=== PATIENT | female | born 1955 | race Caucasian/White ===

== ENCOUNTER → 2016-10-20 | Outpatient (CLI) | payer BC ==
[~2016-10-20] MED LIST: ASPI81TA82 PO; CALC-338 PO; CLOP1TAB54 PO; LPT/40 PO; METO25TA56 PO; MULTTAB58 PO; NTRGSL/4 UT
--- NOTE | 2016-10-20 15:41 | MAMMOGRAPHY REPORT ---
BILATERAL DIGITAL SCREENING MAMMOGRAM WITH CAD: 10/20/2016 CLINICAL HISTORY: Routine screening. Patient has no complaints. TECHNIQUE: Current study was also evaluated with a Computer Aided Detection (CAD) system. Bilatera l CC and MLO views were obtained. COMPARISON: Comparison is made to exams dated: 10/20/2015 mammogram, 10/16/2013 mammogram, 10/17/2014 mammogram, 10/15/2012 mammogram, 10/13/2011 mammogram, and 10/11/2010 mammogram - [facility]. BREAST COMPOSITION: The tissue of both breasts is heterogeneously dense, which may obscure small ma sses. FINDINGS: No suspicious masses, calcifications, or areas of architectural distortion are noted in e ither breast. There has been no significant interval change compared to prior exams. A linear scar marker denotes a scar in the right upper outer breast. A few scattered bilateral benign-appearing c alcifications are not significantly changed. IMPRESSION: ACR BI-RADS CATEGORY 2: BENIGN There is no mammographic evidence of malignancy. A 1 year screening mammogram is recommended. The p atient will receive written notification of the results. Approximately 10% of breast cancers are not detected with mammography. A negative mammographic repor t should not delay biopsy if a clinically suggestive mass is present. Gretel Patricio M.D. ah/:10/20/2016 14:57:09 Patient Insurance Clerk: Yohannes PIERRE(R)(M), [facility] letter sent: Normal 1/2 BI-RADS Code: ACR BI-RADS Category 2: Benign
== END | disposition home or self-care (01) ==
LOC: C.MAMM 13:34
PROVIDERS: ATTEND Family Medicine
DX: Z12.31 Encounter for screening mammogram for malignant neoplasm of breast (principal)

== ENCOUNTER → 2017-10-23 | Outpatient (CLI) | payer BC ==
--- NOTE | 2017-10-24 07:47 | MAMMOGRAPHY REPORT ---
BILATERAL DIGITAL SCREENING MAMMOGRAM TOMOSYNTHESIS WITH CAD: 10/23/2017 CLINICAL HISTORY: Routine screening. Patient has no complaints. TECHNIQUE: Breast tomosynthesis in addition to standard 2D mammography was performed. Current study was also evaluated with a Computer Aided Detection (CAD) system. COMPARISON: Comparison is made to exams dated: 10/20/2016 mammogram, 10/20/2015 mammogram, 10/17/2014 m ammogram, 10/16/2013 mammogram, 10/15/2012 mammogram, and 10/13/2011 mammogram - [facility]. BREAST COMPOSITION: The tissue of both breasts is heterogeneously dense, which may obscure small mas ses. FINDINGS: A linear scar marker overlies the upper outer quadrant of the right breast. There is stabl e asymmetry in the medial/retroareolar right breast. No suspicious mass, architectural distortion or cluster of microcalcifications is seen. IMPRESSION: ACR BI-RADS CATEGORY 1: NEGATIVE There is no mammographic evidence of malignancy. A 1 year screening mammogram is recommended. The pa tient will receive written notification of the results. Approximately 10% of breast cancers are not detected with mammography. A negative mammographic report should not delay biopsy if a clinically suggestive mass is present. Kori Post M.D. ay/:10/23/2017 17:05:12 Fitness And Wellness Coordinator: Rosalva Berg, [facility] letter sent: Normal 1/2 BI-RADS Code: ACR BI-RADS Category 1: Negative
== END | disposition home or self-care (01) ==
LOC: C.MAMM 13:29
PROVIDERS: ATTEND Family Medicine
DX: Z12.31 Encounter for screening mammogram for malignant neoplasm of breast (principal)

== ENCOUNTER 2021-12-06 19:05 | Inpatient (IN) ==
[~2021-12-06 19:05] MED LIST changes: -ASPI81TA82 PO; -CALC-338 PO; -CLOP1TAB54 PO; +ETOMIDATE 2 MG/ML 20 ML VIAL IV ONE; -LPT/40 PO; -METO25TA56 PO; -MULTTAB58 PO; -NTRGSL/4 UT; +SUCCINYLCHOLINE CHLORIDE 20 MG/ML 10 ML VIAL IV ONE
[2021-12-06] MEDS ORDERED: LORazepam 2 MG/1 ML VIAL IV STA (19:07)
[2021-12-06] MEDS ORDERED: ONDANSETRON INJ 2 MG/ML 2 ML VIAL IV STA (19:08)
[2021-12-06] MEDS ORDERED: LORazepam 2 MG/1 ML VIAL ONE (19:08)
[2021-12-06] MEDS ORDERED: ONDANSETRON INJ 2 MG/ML 2 ML VIAL ONE (19:08)
[2021-12-06] MEDS ORDERED: RAPID SEQUENCE INDUCTION BAG ONE (19:20)
[2021-12-06 19:29] LABS: iSTAT Creatinine 0.8 mg/dl (0.6-1.3); iSTAT Hemoglobin 16.7 g/dl (12.0-16.0); iSTAT Ionized Calcium 1.25 mmol/l (1.12-1.32); iSTAT Potassium 4.3 mmol/L (3.3-5.0)
[2021-12-06] MEDS ORDERED: PROPOFOL IV EMULSION 10 MG/ML 100 ML VIAL IV ONE (19:33)
--- NOTE | 2021-12-06 19:37 | XRay Report ---
XR chest 1V portable CLINICAL HISTORY: Atypical chest pain TECHNIQUE: Single frontal radiograph of the chest was obtained. Comparison: Comparison is made to chest radiograph 08/26/2013 FINDINGS: No lines and tubes are seen. Cardiomegaly is noted. Prominence and cephalization of the vasculature i s seen. No evidence of pleural effusion or pneumothorax. IMPRESSION: Mild pulmonary edema. Cardiomegaly. ACT 112: Negative or not required by law. Electronically signed by: Champ Nuñez M.D. 12/06/2021 7:36 PM
[2021-12-06 19:41] LABS: Partial Thromboplastin Time 28.4 Seconds (21.0-31.0); Prothrombin Time 10.5 Seconds (9.0-12.0)
--- NOTE | 2021-12-06 19:49 | XRay Report ---
XR chest 1V portable CLINICAL HISTORY: ett placement TECHNIQUE: Single frontal radiograph of the chest was obtained. Comparison: Comparison is made to chest radiograph 12/06/2021 at 1917 hours. FINDINGS: Endotracheal tube is in satisfactory position. Cardiomegaly is noted. Prominence and cephalization of the vasculature is seen. No evidence of pleural effusion or pneumothorax. IMPRESSION: Satisfactory position of endotracheal tube. Redemonstration of cardiomegaly and mild pulmonary edema. ACT 112: Negative or not required by law. Electronically signed by: Champ Nuñez M.D. 12/06/2021 7:48 PM
[2021-12-06 19:53] LABS: Anion Gap 13 (3-11); BUN Creatinine Ratio 19.8 (10-20); Blood Urea Nitrogen 17 mg/dl (6-23); Calcium 10.2 mg/dl (8.5-10.1); Carbon Dioxide 21 mmol/L (21-32); Chloride 105 mmol/L (98-107); Est GFR (African American) 81.6 ml/min; Est GFR (Non-African American) 70.4 ml/min; Glucose 143 mg/dl (70-99(Fasting)); Lipase 19 U/L (11-82); Potassium 4.6 mmol/L (3.5-5.1); Sodium 139 mmol/L (136-145)
[2021-12-06 19:57] LABS: Hematocrit (blood only) 47.8 % (37-47); Mean Corpuscular Hgb Conc 31.4 g/dL (32-36); Mean Corpuscular Volume 89.2 fL (80-100); Mean Platelet Volume 11.6 fL (7.4-10.4); Platelet Count 391 K/uL (130-400); RDW Coefficient of Variation 16.2 % (11.5-14.5); RDW Standard Deviation 52.7 fL (36.4-46.3); Red Blood Count 5.36 M/uL (4.2-5.4); White Blood Count 15.73 K/uL (4.8-10.8)
[2021-12-06 20:13] LABS: Base Excess ABG -13.6 mEq/L (-9-1.8); HCO3 ABG 15 mmol/L (19-24); Oxygen Saturation ABG 97.4 % (90-95); PCO2 ABG 47 mmHg (35-46); PO2 ABG 114 mmHg (80-95)
[2021-12-06 20:14] LABS: Allen Test Pos (Pos); pH ABG 7.13 (7.35-7.45)
[2021-12-06] MEDS ORDERED: OPTIRAY 320 125ml IV ONE (20:19)
[2021-12-06 20:22] LABS: ALC (manual) 4.78 K/uL (1.2-3.4); ANC (manual) 8.84 K/uL (1.4-6.5); Basophils # (manual) 0.14 K/uL (0-0.2); Basophils % (manual) 0.9 %; Eosinophils # (manual) 1.26 K/uL (0-0.5); Lymphocytes # (manual) 4.78 K/uL (1.2-3.4); Lymphocytes % (manual) 30.4 %; Monocytes # (manual) 0.71 K/uL (0.11-0.59); Monocytes % (manual) 4.5 %; Neutrophils # (manual) 8.84 K/uL (1.4-6.5); Neutrophils % (manual) 56.2 %; RBC Morphology Unremarkable
--- NOTE | 2021-12-06 20:29 | CT Scan Report ---
CT head/brain wo con CLINICAL HISTORY: ams Technique: Contiguous axial CT images of the head were acquired from the base of the skull to the michael doug without intravenous contrast administration. Images were viewed in brain, subdural and [facility]. Automated dose lowering techniques and/or adjustment according to patient size were utilized for this exam. Comparison: None available at the time of this dictation. Findings: The ventricles, basal cisterns, and cerebral sulci are normal. There is no acute intracranial hemorrh age or evidence of acute territorial infarction. Neither mass effect, shift of the midline structures , nor abnormal extra-axial fluid collections are shown. Imaged portions of the paranasal sinuses and mastoid air cells are clear. The orbits appear normal. There are no acute fractures of the calvaria or scalp swelling. Impression: No acute intracranial hemorrhage, no evidence of acute territorial infarction or other acute intracra nial disease process. ACT 112: Negative or not required by law. Electronically signed by: Champ Nuñez M.D. 12/06/2021 8:27 PM
--- NOTE | 2021-12-06 20:39 | CT Scan Report ---
CT angio chest PE protocol CLINICAL HISTORY: ro pe TECHNIQUE: Multidetector row helical CT of the chest was performed with angiographic protocol. Hopkins l and sagittal reformations were obtained. Coronal and sagittal MIPS were obtained from the axial arturo a set and were submitted for review. Automated dose lowering techniques and/or adjustment according to patient size were utilized for this exam. CT DOSE: 361.11 mGy.cm Comparison: None available at the time of this dictation. FINDINGS: Lungs and pleura: Moderate right and small left pleural effusions are seen. Consolidations and ground glass opacities are seen in the bilateral lower lobes. Smooth interlobular septal thickening is seen. Heart and pericardium: Heart size is normal. No pericardial effusion. Vessels: No evidence of pulmonary embolism. Pulmonary trunk measures 33 mm in diameter. Mediastinum and lewis: Subcentimeter lymph nodes are seen. Chest wall and lower neck: Unremarkable. Abdomen: Unremarkable. Bones: Degenerative changes in the thoracic spine. IMPRESSION: 1. No evidence of pulmonary embolus. 2. Moderate right and small left pleural effusions. Bilateral lower lung consolidations are nonspeci fic and may reflect infectious/inflammatory process or atelectasis. 3. Moderate pulmonary edema. 4. Pulmonary hypertension. ACT 112: Negative or not required by law. Electronically signed by: Champ Nuñez M.D. 12/06/2021 8:37 PM
[2021-12-06 20:44] LABS: Appearance Urine Clear (Clear); Bilirubin Urine Negative (Negative); Blood Urine Negative (Negative); Color Urine Yellow; Glucose Urine UA Negative (Negative); Ketones Urine Negative (Negative); Leukocyte Esterase Urine Negative (Negative); Nitrite Urine Negative (Negative); Protein Urine Negative (Negative); Specific Gravity Urine 1.006 (1.000-1.030); Urobilinogen Urine Negative (Negative); pH Urine 5.5 (4.5-7.5)
[2021-12-06] MEDS ORDERED: FUROSEMIDE 40 MG/4 ML VIAL IV ONE ×2 (20:47→20:49)
[2021-12-06 21:03] LABS: Base Excess ABG -12.3 mEq/L (-9-1.8); HCO3 ABG 16 mmol/L (19-24); PCO2 ABG 43 mmHg (35-46); PO2 ABG 161 mmHg (80-95)
[2021-12-06 21:04] LABS: Allen Test Pos (Pos); pH ABG 7.18 (7.35-7.45)
[2021-12-06] MEDS ORDERED: fentaNYL citrate 100 MCG/2 ML VIAL ONE (21:04)
[2021-12-06] MEDS ORDERED: ICU PROTOCOL FOR HYPERGLYCEMIA PRN (22:48)
[2021-12-06] MEDS ORDERED: METOPROLOL TARTRATE 1 MG/ML VIAL IV PRN (22:48)
[2021-12-06] MEDS ORDERED: STAT IV Infusion **Titration per Protocol STA (22:53)
[2021-12-06] MEDS ORDERED: PROPOFOL BOLUS FROM BAG IV PRN (22:53)
[2021-12-06] MEDS ORDERED: propofoL 1,000 MG/100 ML VIAL IV SCH (23:00)
--- NOTE | 2021-12-06 23:06 | Critical Care Consultation ---
Date of Consultation December 06, 2021 Assessment & Plan (1) Admitted to intensive care unit: Reason Critically Ill: 66-year-old female presenting in acute respiratory failure with hypoxia secondary to flash pulmonary edema requiring emergent endotracheal intubation. NEURO - * CAM ICU: Unable to assess secondary to sedation * Sedation: Propofol * Pain: As needed fentanyl CARDIAC/VASCULAR - * Acute heart failure: * Likely related to patient's recent valvular insufficiencies. * Certainly, acute coronary syndrome may present similarly, however patient's EKG and initial cardiac enzymes are not suggestive of significant cardiovascular event. Will perform serial enzymes and EKGs. Will hold on Heparin gtt for now. * Agree with Lasix BID dosing for now. * EKG: NSR @ [address] depression laterally. No ST elevation. QTc 472 bpm. * Repeat EKG upon arrival in the ICU shows NSR @ [address] depressions seen at this time. QTc 466 ms. * Monitor on telemetry. RESPIRATORY - * Acute hypoxic respiratory failure: * Secondary to flash pulmonary edema. * CTA w/o other acute findings. * Diuresing well. * Titrating down vent settings currently. * Hopeful for early extubation. GI/NUTRITION - * NPO * OGT in place. RENAL/LYTES - * No significant electrolyte derangements. * Monitor electrolytes closely w/ new Lasix dosing. - * Dubois in place - Strict I&Os. ENDO - * No h/o DM or Thyroid Dz * BSGs per unit protocol. ISS --> gtt per unit policy. HEME - * Leukocytosis. * Likely stress reaction. * Monitor fever curve. ID - * Likely not infectious causes at this point. * Trend fever curve. LINES/IV ACCESS - * PIVs x3 * ETT * OGT * Dubois DVT PROPHYLAXIS - * Heparin * SCDs I have personally spent 35 minutes of critical care time in the direct management of this patient. This is a life/limb threatening event. This includes time spent evaluating patient, direct bedside care, chart review, placing orders, interpretation of diagnostic studies, discussion with consultants, patient, and family members, as well as other required patient management activities. This time is exclusive of all separately billable procedures, and teaching time and separate from and in addition to any other critical care service time. Thank you for allowing us to participate in the care of this patient. Please refer to my attending physician's documentation for any further recommendations. (2) Acute respiratory failure with hypoxia: (3) Flash pulmonary edema: (4) Unstable angina: (5) Chronic osteomyelitis of jaw: History of Present Illness Attending Physician: Chiki Hernadez MD History of Present Illness Patient is a 66-year-old female with a significant past medical history of coronary artery disease status post PTCI with MICHELA x1, hypertension, hyperlipidemia, and recent diagnosis of aortic insufficiency via HARVINDER performed on 12/01. Patient had been performing her activities of daily living well and had recently just completed a yoga class this evening when she apparently drove immediately to the emergency department in respiratory distress. She was profoundly hypoxic in the 70s. She did not respond to noninvasive positive pressure ventilation techniques. She required endotracheal intubation in the setting of flash pulmonary edema. Upon my evaluation in the emergency department, the patient is intubated and sedated. She is unable to contribute to HPI. Allergies Allergy/AdvReac Type Severity Reaction Status Date / Time eptifibatide Allergy Intermediate ITCHY RASH Verified 12/06/21 19:20 [From Integrilin] codeine AdvReac Intermediate NAUSEA/VOMI Verified 12/06/21 19:20 TING Home Medications Medication Instructions Recorded Confirmed Type amlodipine 10 mg tablet 10 mg PO DAILY 06/04/19 12/06/21 History aspirin 81 mg tablet,delayed 81 mg PO QAM 06/04/19 12/06/21 History release metoprolol tartrate 50 mg tablet 50 mg PO BID 06/04/19 12/06/21 History (Lopressor) fexofenadine 180 mg tablet 180 mg PO DAILY 11/30/21 12/06/21 History fluticasone propionate 50 2 spray INTRANASAL DAILY 11/30/21 12/06/21 History mcg/actuation nasal spray,suspension (Flonase Allergy Relief) losartan 25 mg tablet 25 mg PO QAM 11/30/21 12/06/21 History calcium citrate 250 mg 1 tab PO BID 12/06/21 12/06/21 History calcium-vitamin D3 5 mcg (200 unit) tablet multivit-iron 18 mg-folic acid 400 1 tab PO DAILY 12/06/21 12/06/21 History mcg-calcium 500 mg-minerals tablet (Women's One Daily) rosuvastatin 40 mg tablet 40 mg PO DAILY 12/06/21 12/06/21 History sodium chloride 0.65 % nasal spray 1 spray INTRANASAL DIRECTED PRN 12/06/21 12/06/21 History aerosol (Saline Nasal) Patient History Medical History Aortic regurgitation Severe per 10/25/21 echo CAD (coronary artery disease) MICHELA to mid RCA (12/2012), "repeat coronary intervention" (05/2013) for in- stent restenosis per cardiology records Hyperlipidemia Hypertension Surgical History History of cardiac cath MICHELA to mid RCA (12/2012), "repeat coronary intervention" (05/2013) for in-sten t restenosis, (2013) > "50% distal narrowing of the RCA but no high-grade obstruction" per cardiology records Social History Smoking Status: Never smoker Second Hand Exposure: No; Hx Alcohol Use: Yes Alcohol type: wine Hx Substance Use: No Preferred Language: Hungarian Communication Ability: Effective Skates Operator Required: No Beliefs That Will Affect Care: None Current Living Situation: Spouse Other Information That Helps Us Care for You: No Feels Safe at Home: Yes Safety Concerns: Feels Safe At This Time Assistive Devices: Glasses Review of Systems Review of Systems: Unobtainable due to endotracheal tube and Unobtainable due to reduced consciousness Physical Exam Physical Exam: VITAL SIGNS - Vital signs and nursing notes were reviewed. GENERAL - 66-year-old female appearing her stated age who is in no acute distress. Intubated and sedated. HEAD - NC/AT. EYES - PERRL with EOMI bilaterally. Sclera anicteric. EARS - No deformities of external structures noted on gross examination bilaterally. NOSE - Midline and without cyanosis. No epistaxis or purulent drainage noted. MOUTH/OROPHARYNX - ETT in place. Without perioral cyanosis. Buccal mucosa pink and moist. NECK - Neck with FROM. Supple to palpation. LUNGS - Chest wall symmetric without accessory muscle use, intercostals r etractions, or central cyanosis. Normal vesicular breath sounds CTA B/L. No wheezes, rales, or rhonchi appreciated. CARDIAC - RRR with S1/S2. No murmur, rubs, or gallops appreciated. No reproducible tenderness to palpation appreciated over the anterior chest wall. ABDOMEN - Abdominal contour flat without pulsations or visible masses. BS normoactive all four quadrants. No tenderness, palpable masses, hepatosplenomegaly, or ascites noted. EXTREMITIES - No clubbing or peripheral cyanosis. No pretibial edema present. +3/5 radial and dorsalis pedis pulses palpated throughout. +5/5 strength noted i n UE/LE bilaterally. NEUROLOGIC - No focal neurological deficits noted. Unable to fully assess secondary to sedation. Results & Data Results & Data ([facility]) Vital Signs (Past 12 Hours) Vital Signs Temp Pulse Pulse Resp BP BP Pulse Ox 12/06/21 22:58 36.6 C 73 16 117/47 L 99 12/06/21 20:44 36.6 C 12/06/21 20:40 68 16 113/55 L 99 12/06/21 20:36 36.6 C 68 16 92/53 L 100 12/06/21 19:50 92 H 16 12/06/21 19:45 97 Coding Level of Care Code Critical Care 1st 30-74 mins Diagnoses Admitted to intensive care unit Z78.9 Acute respiratory failure with hypoxia J96.01 Flash pulmonary edema J81.0 Unstable angina I20.0 Chronic osteomyelitis of jaw M27.2 Time Spent (min) 35
[2021-12-06] MEDS: fentaNYL citrate 100 MCG/2 ML VIAL IV PRN (23:10)
[2021-12-06 23:38] LABS: iSTAT Allen Test Pass; iSTAT Arterial Blood Gas HCO3 26 meg/L (19-24); iSTAT Arterial Blood Gas pCO2 34 mmHg (35-46); iSTAT Arterial Blood Gas pH 7.49 (7.35-7.45); iSTAT Arterial Blood Gas pO2 299 mmHg (80-95); iSTAT Carbon Dioxide 27 mmol/L (24-31); iSTAT FiO2 80 %; iSTAT Site R Radial
--- NOTE | 2021-12-06 23:39 | History and Physical Report ---
DATE OF ADMISSION: 12/06/2021. CHIEF COMPLAINT: Shortness of breath, respiratory failure, status post intubation. HISTORY OF PRESENT ILLNESS: This is a 66-year-old female with a past medical history for hyperlipidemia, seasonal allergic rhinitis, CAD, status post stent, hypertension, dysfunction of eustachian tube, [id number] aortic insufficiency and moderate mitral regurgitation in recent echo, who presents with shortness of breath and found to have flash pulmonary edema, respiratory failure, status post intubation in the ER. Currently, the patient is sedated with propofol. is in the room. As per the , she was doing fine, she even did gardening on the weekend, she was active. No complaints except she has occasional cough thought to be from dysfunction of the left eustachian tube, but she has no orthopnea or PND, no leg swelling, no chest pain, no nausea, no vomiting, no fevers, no diarrhea, or no other complaints. She went for yoga class today and as per the , she finished the class and she did not come home for 45 minutes, which is unusual for her, and he texted her, she did respond, and he went there and there was no car and he found her here in the hospital.As per the ER, the patient was very short of breath when she came in. She could not tolerate high oxygen and she was coughing frothy sputum when they decided to intubate her and she is currently status post intubation. Could not get any history from the patient. ALLERGIES: CODEINE, INTEGRILIN. PAST MEDICAL HISTORY: As mentioned above. PAST SURGICAL HISTORY: Angioplasty, colonoscopy, left heart catheterization with stent placement, dental surgery, dilatation and curettage after miscarriage in 1990, breast cyst puncture and drainage. MEDICATIONS: The patient is on amlodipine 10 mg p.o. daily, aspirin 81 mg p.o. daily, calcium citrate plus vitamin D one tablet p.o. b.i.d., fexofenadine 180 mg p.o. daily, Flonase 2 sprays intranasal daily, losartan 25 mg p.o. a.m., metoprolol tartrate 50 mg p.o. b.i.d., Women's One Daily tablet daily, lovastatin 40 mg p.o., nasal spray 1 spray intranasal as directed p.r.n. FAMILY HISTORY: Significant for father had liver cancer, melanoma, in 1999, father also had CHF and TN; brother has mitral valve prolapse; mother has emphysema; maternal grandfather has TN; paternal grandmother has TN. SOCIAL HISTORY: . Quit smoking in 1984, smoked 1 pack a day for 10 years. Alcohol, a glass of red wine every day with dinner. No drug use. REVIEW OF SYSTEMS: As per HPI. Rest of the review of systems is negative. PHYSICAL EXAMINATION: GENERAL: The patient is thin and frail, currently status post intubation. VITAL SIGNS: Temperature 36.6, pulse 68, respiratory rate 16, blood pressure 113/55, oxygen 99% on mechanical ventilation. HEENT: Pupils pinpoint, sluggish to react. No obvious facial droop seen. NECK: No obvious JVD seen. CARDIOVASCULAR: S1 and S2 heard. Murmur in the mitral area heard. RESPIRATORY SYSTEM: Normal AP diameter. No accessory muscle use. Mild bibasilar crackles. No wheezing. ABDOMEN: Soft, bowel sounds present, nontender, no distention. CENTRAL NERVOUS SYSTEM: Currently status post intubation and sedated with propofol. EXTREMITIES: No edema, no erythema seen. LABORATORY DATA: WBC 15, hemoglobin 15, hematocrit 47.8, platelets 391. PT 10.5, INR 1, APTT 28.4. ABG, pH of 7.18, pCO2 of 43, pO2 of 161, bicarbonate 16, oxygen saturation 99%. Sodium 139, potassium 4.6, chloride 105, CO2 of 21, BUN 17, creatinine 0.8, serum glucose 143, calcium 10.2, ionized calcium 1.2. Troponin I high sensitivity 22.1, BNP 1073. Lipase 19. Urinalysis negative. SARS-CoV-2 rapid test negative. IMAGING DATA: CT of the head, no acute findings. Chest x-ray, satisfactory position of the ET tube, cardiomegaly, and mild pulmonary edema. Chest CTA, no evidence of pulmonary embolism, moderate right and left pleural effusions, bilateral lower lung consolidations are nonspecific and may reflect infectious, inflammatory process or atelectasis, moderate pulmonary edema, pulmonary hypertension. EKG: Normal sinus rhythm at a rate of 94, possible left atrial enlargement . No significant change was found. ASSESSMENT AND PLAN: This 66-year-old female who presents with shortness of breath and found to have acute respiratory failure secondary to flash pulmonary edema. 1. Acute respiratory failure secondary to flash pulmonary edema, most likely secondary to valvular heart disease. She had a recently done echo that showed [id number] aortic insufficiency and moderate mitral regurgitation. Currently is status post intubation, received one dose of IV Lasix. Follow I's and O's. Monitor closely in the ICU. Vent management as per critical care. Will place on IV Lasix 40 b.i.d. Follow the echocardiogram. Closely monitor and consult cardiology in the a.m. 2. Mild elevation of troponin, mostly demand ischemia from above: Will follow serial enzymes. Follow echocardiogram. 3. History of coronary artery disease, status post stent: On statin and aspirin. 4. History of hypertension: Will hold amlodipine and losartan and metoprolol for now. Will place on IV Lopressor p.r.n. 5. Hyperlipidemia: Continue statin. 6. Deep venous thrombosis prophylaxis: Heparin subcutaneously. DISPOSITION: Closely monitor in the ICU. Level 1 full code. Job ID: [id number] [id number]
[2021-12-07 00:11] LABS: Phosphorus 4.3 mg/dl (2.5-4.9)
[2021-12-07 00:21] LABS: Troponin I High Sensitivity 678.7 pg/ml (0-14)
--- NOTE | 2021-12-07 00:26 | Emergency Department Note ---
History of Present Illness General Chief complaint: Shortness of Breath/Dyspnea Stated complaint: SOB Time Seen by Provider: 12/06/21 19:07 History of Present Illness Provider complaint: Respiratory distress Maximum Pain Intensity: 0 60-year-old female presents emergency department for respiratory distress. Per nursing the patient drove to the emergency department and in the driveway was honking her horn furiously. Nursing staff went to go evaluate the patient and direct her out of her car. When they got her into the triage area the patient's oxygen level was 70%. Patient is stating that she cannot breathe. Home Medications Medication Instructions Recorded Confirmed Type amlodipine 10 mg tablet 10 mg PO DAILY 06/04/19 12/06/21 History aspirin 81 mg tablet,delayed 81 mg PO QAM 06/04/19 12/06/21 History release metoprolol tartrate 50 mg tablet 50 mg PO BID 06/04/19 12/06/21 History (Lopressor) fexofenadine 180 mg tablet 180 mg PO DAILY 11/30/21 12/06/21 History fluticasone propionate 50 2 spray INTRANASAL DAILY 11/30/21 12/06/21 History mcg/actuation nasal spray,suspension (Flonase Allergy Relief) losartan 25 mg tablet 25 mg PO QAM 11/30/21 12/06/21 History calcium citrate 250 mg 1 tab PO BID 12/06/21 12/06/21 History calcium-vitamin D3 5 mcg (200 unit) tablet multivit-iron 18 mg-folic acid 400 1 tab PO DAILY 12/06/21 12/06/21 History mcg-calcium 500 mg-minerals tablet (Women's One Daily) rosuvastatin 40 mg tablet 40 mg PO DAILY 12/06/21 12/06/21 History sodium chloride 0.65 % nasal spray 1 spray INTRANASAL DIRECTED PRN 12/06/21 12/06/21 History aerosol (Saline Nasal) Allergies Allergy/AdvReac Type Severity Reaction Status Date / Time eptifibatide Allergy Intermediate ITCHY RASH Verified 12/06/21 19:20 [From Integrilin] codeine AdvReac Intermediate NAUSEA/VOMI Verified 12/06/21 19:20 TING Past Med/Surg History Medical History Aortic regurgitation Severe per 10/25/21 echo CAD (coronary artery disease) MICHELA to mid RCA (12/2012), "repeat coronary intervention" (05/2013) for in- stent restenosis per cardiology records Hyperlipidemia Hypertension Surgical History History of cardiac cath MICHELA to mid RCA (12/2012), "repeat coronary intervention" (05/2013) for in- stent restenosis, (2013) > "50% distal narrowing of the RCA but no high-grade obstruction" per cardiology records Social History Smoking Status: Never smoker Second Hand Exposure: No; Hx Alcohol Use: Yes Alcohol type: wine Hx Substance Use: No Preferred Language: Hong Konger Communication Ability: Effective Optical Instrument Repairer Required: No Beliefs That Will Affect Care: None Current Living Situation: Spouse Other Information That Helps Us Care for You: No Feels Safe at Home: Yes Safety Concerns: Feels Safe At This Time Assistive Devices: Glasses Review of Systems Other (Unable to obtain due to respiratory distress.) Physical Exam Vital Signs Vital Signs - 24 hr 12/06/21 19:40 12/06/21 19:45 12/06/21 19:50 Temperature Temperature Source Pulse Rate 102 H 92 H Pulse Rate [Apical] Pulse Rhythm Regular Pulse Rhythm [Apical] Pulse Strength [Apical] Respiratory Rate 16 16 Respiratory Effort / Characteristics Respiratory Depth Respiratory Pattern Blood Pressure [Left Arm] Blood Pressure Mean [Left Arm] Blood Pressure Position [Left Arm] Pulse Oximetry 97 97 Oxygen Delivery Method Mechanical Vent Mechanical Vent Fraction of Inspired Oxygen 80 70 SaO2/FiO2 Ratio Sepsis Recent Fever Within 48 Hours Sepsis New/Unexplained Change in Mental Status Sepsis Action Taken by Nursing End-Tidal CO2 31 12/06/21 20:09 12/06/21 20:36 12/06/21 20:40 Temperature 36.6 C Temperature Source Rectal Pulse Rate 69 Pulse Rate [Apical] 68 68 Pulse Rhythm Pulse Rhythm [Apical] Regular Regular Pulse Strength [Apical] Normal Normal Respiratory Rate 19 16 16 Respiratory Effort / Characteristics Non-Labored Spontaneous Mechanically Ventilated Respiratory Depth Normal Normal Respiratory Pattern Regular Regular Blood Pressure [Left Arm] 92/53 L 113/55 L Blood Pressure Mean [Left Arm] 66 74 Blood Pressure Position [Left Arm] Lying Lying Pulse Oximetry 97 100 99 Oxygen Delivery Method Mechanical Vent Mechanical Vent Fraction of Inspired Oxygen 80 100 100 SaO2/FiO2 Ratio 100 99 Sepsis Recent Fever Within 48 Hours Sepsis New/Unexplained Change in Mental Status Sepsis Action Taken by Nursing End-Tidal CO2 20 12/06/21 20:44 Temperature 36.6 C Temperature Source Rectal Pulse Rate Pulse Rate [Apical] Pulse Rhythm Pulse Rhythm [Apical] Pulse Strength [Apical] Respiratory Rate Respiratory Effort / Characteristics Labored Tripoding Respiratory Depth Respiratory Pattern Rapid/Shallow Tachypnea Blood Pressure [Left Arm] Blood Pressure Mean [Left Arm] Blood Pressure Position [Left Arm] Pulse Oximetry Oxygen Delivery Method Fraction of Inspired Oxygen SaO2/FiO2 Ratio Sepsis Recent Fever Within 48 Hours No Sepsis New/Unexplained Change in Mental Status No Sepsis Action Taken by Nursing No Action Required End-Tidal CO2 Physical Exam GENERAL: Severe distress. EYES: Pupils 2 mm and reactive. CV: Tachycardic rate, regular rhythm, normal heart sounds and intact distal pulses. Palpable radial pulses bue. PULM/CHEST: Patient in respiratory distress. Tachypneic. Rales at the bases rhonchi bilaterally. ABD: The abdomen is soft. MUSC/SKEL: There is no peripheral edema. NEURO: GCS eye subscore is 3. GCS verbal subscore is 3. GCS motor subscore is 6. SKIN: Patient diaphoretic. Procedures Intubation Time out performed: Yes sedative: Etomidate Mg Given: 15 paralytic: Succinylcholine Mg Given: 70 Laryngoscope: other (glidescope) ET Tube Size: 7 ET Tube Uncuffed: No Tube Secured Depth (cm): 25 Tube Secured Location: teeth Tube Placement Confirmation: visualized tube passing through cords, equal breath sounds bilaterally, no breath sounds over epigastrium and confirmation by capnometry Patient Tolerated Procedure: well Intubation Complications: none Course Course 1906: The patient was evaluated in room A12. A complete history and physical exam was performed Cardiac monitoring: An order was placed for continuous cardiac monitoring. The monitor shows a rate of 110 with sinus tachycardia rhythm Patient in severe respiratory distress. Attempted to give the patient some Ativan and try the patient on BiPAP. Chest x-ray conducted shows pulmonary edema. Patient was unable to tolerate the BiPAP and was becoming more fatigued. We tried high flow nasal cannula which the patient was becoming more lethargic, diaphoretic and started having white frothy foam coming from her mouth. No pink frothy sputum. Patient is moved to the resuscitation bay and intubated. See procedure note. Chest x-ray reviewed by me status post intubation shows possible worsening of the patient's pulmonary edema. Blood pressure stable. No nitroglycerin at this time. 1950: Patient's ABG shows pH of 7.13 PCO2 47 PO2 114 bicarb 15. patient will be sent for rule out PE CTA chest. 2054: On arrival back to resuscitation bay from CAT scan the patient's repeat pH shows a arterial pH of 7.18, PCO2 43, PO2 [address] of the head negative for ICH and CTA of the chest negative for PE does show pulmonary edema. Labs show a leukocytosis of 15.7. Troponin elevated at 22.1. Lasix 40 mg o rdered for the patient flash pulmonary edema and the [facility]. Administered Medications Discontinued Medications Fentanyl Citrate (Fentanyl Citrate 100 Mcg/2 Ml Vial) Confirm Administered Dose 100 mcg .ROUTE .STK-MED ONE Stop: 12/06/21 21:05 Last Admin: 12/06/21 21:14 Dose: 50 mcg Documented by: [id number] Furosemide (Furosemide 40 Mg/4 Ml Vial) 40 mg IV ONE ONE Stop: 12/06/21 20:48 Last Admin: 12/06/21 20:54 Dose: 40 mg Documented by: [id number] Furosemide (Furosemide 40 Mg/4 Ml Vial) Confirm Administered Dose 40 mg IV .STK- MED ONE Stop: 12/06/21 20:50 Last Admin: 12/06/21 20:55 Dose: Not Given Documented by: [id number] Ioversol (Optiray 320 125ml) 120 ml IV ONCE ONE Stop: 12/06/21 20:20 Last Admin: 12/06/21 20:20 Dose: 120 ml Documented by: [id number] Lorazepam (Lorazepam 2 Mg/1 Ml Vial) 1 mg IV NOW STA Stop: 12/06/21 19:08 Last Admin: 12/06/21 19:15 Dose: 1 mg Documented by: [id number] Lorazepam (Lorazepam 2 Mg/1 Ml Vial) Confirm Administered Dose 2 mg .ROUTE .STK- MED ONE Stop: 12/06/21 19:09 Last Admin: 12/06/21 19:16 Dose: Not Given Documented by: [id number] Miscellaneous (Rapid Sequence Induction Bag) Confirm Administered Dose 1 ea .ROUTE .STK-MED ONE Stop: 12/06/21 19:21 Last Admin: 12/06/21 19:29 Dose: 1 ea Documented by: [id number] Ondansetron HCl (Ondansetron Inj 2 Mg/Ml 2 Ml Vial) Confirm Administered Dose 4 mg .ROUTE .STK-MED ONE Stop: 12/06/21 19:09 Last Admin: 12/06/21 19:16 Dose: Not Given Documented by: [id number] Ondansetron HCl (Ondansetron Inj 2 Mg/Ml 2 Ml Vial) 4 mg IV NOW STA Stop: 12/06/21 19:09 Last Admin: 12/06/21 19:16 Dose: 4 mg Documented by: [id number] Propofol (Propofol Iv Emulsion 10 Mg/Ml 100 Ml Vial) Confirm Administered Dose 1,000 mg IV .STK-MED ONE Stop: 12/06/21 19:34 Last Admin: 12/06/21 19:40 Dose: 1,000 mg Documented by: [id number] Cosigned by: [id number] Critical Care Time Critical Care Time: Yes Total Critical Care Time: 66 I have personally spent greater than 66 minutes of critical care time in the direct management of this patient. This includes bedside care, interpretation of diagnostic studies, and testing, discussion with consultants, patient, and family members, and other required patient management activities. This 66 minutes is in excess of all separately billable procedures. Medical Decision Making Laboratory Data Result diagrams: 12/06/21 19:10 12/06/21 19:10 Lab Results 12/06/21 12/06/21 12/06/21 Range/Units 19:10 19:10 19:10 WBC 15.73 H (4.8-10.8) K/uL RBC 5.36 (4.2-5.4) M/uL Hgb 15.0 (12.0-16.0) g/dL POC Hgb (12.0-16.0) g/dl Hct 47.8 H (37-47) % POC Hct (37-47) % MCV 89.2 (80-100) fL MCH 28.0 (25-34) pg MCHC 31.4 L (32-36) g/dL RDW Std Deviation 52.7 H (36.4-46.3) fL RDW Coeff of Stephanie 16.2 H (11.5-14.5) % Plt Count 391 (130-400) K/uL MPV 11.6 H (7.4-10.4) fL Neutrophils % (Manual) 56.2 % Lymphocytes % (Manual) 30.4 % Monocytes % (Manual) 4.5 % Eosinophils % (Manual) 8.0 % Basophils % (Manual) 0.9 % Neutrophils # (Manual) 8.84 H (1.4-6.5) K/uL Total Absolute Neuts 8.84 H (1.4-6.5) K/uL Lymphocytes # (Manual) 4.78 H (1.2-3.4) K/uL Total Abs Lymphocytes 4.78 H (1.2-3.4) K/uL Monocytes # (Manual) 0.71 H (0.11-0.59) K/uL Eosinophils # (Manual) 1.26 H (0-0.5) K/uL Basophils # (Manual) 0.14 (0-0.2) K/uL RBC Morphology Unremarkable PT 10.5 (9.0-12.0) Seconds INR 1.0 (0.9-1.1) APTT 28.4 (21.0-31.0) Seconds PTT Ratio 1.0 ABG pH (7.35-7.45) ABG pCO2 (35-46) mmHg ABG pO2 (80-95) mmHg ABG HCO3 (19-24) mmol/L ABG O2 Saturation (90-95) % ABG Base Excess (-9-1.8) mEq/L Sung Test (Pos) Carboxyhemoglobin % THgb Barometric Pressure mm/Hg Oxygen Given POC Sodium (135-144) mmol/L Sodium (136-145) mmol/L POC Potassium (3.3-5.0) mmol/L Potassium (3.5-5.1) mmol/L POC Chloride (101-112) mmol/L Chloride (98-107) mmol/L Carbon Dioxide (21-32) mmol/L POC Total CO2 (24-31) mmol/L Anion Gap (3-11) POC Anion Gap (16-25) mmol/L POC BUN (7-18) mg/dl BUN (6-23) mg/dl Creatinine (0.6-1.2) mg/dl POC Creatinine (0.6-1.3) mg/dl Est Cr Clr Drug Dosing Est GFR ( Amer) ml/min Est GFR (Non-Af Amer) ml/min BUN/Creatinine Ratio (10-20) Glucose (70-99(Fasting)) mg/dl POC Glucose (other) (70-99) mg/dl Calcium (8.5-10.1) mg/dl POC Ioniz Calcium Kamini (1.12-1.32) mmol/l Troponin I High Sens 22.1 H (0-14) pg/ml B-Natriuretic Peptide (0-100) pg/ml Lipase (11-82) U/L Urine Color Urine Appearance (Clear) Urine pH (4.5-7.5) Ur Specific Tyler (1.000-1.030) Urine Protein (Negative) Urine Glucose (UA) (Negative) Urine Ketones (Negative) Urine Blood (Negative) Urine Nitrite (Negative) Urine Bilirubin (Negative) Urine Urobilinogen (Negative) Ur Leukocyte Esterase (Negative) SARS-CoV-2, RNA, NAAT (NEGATIVE) 12/06/21 12/06/21 12/06/21 Range/Units 19:10 19:16 19:50 WBC (4.8-10.8) K/uL RBC (4.2-5.4) M/uL Hgb (12.0-16.0) g/dL POC Hgb 16.7 H (12.0-16.0) g/dl Hct (37-47) % POC Hct 49 H (37-47) % MCV (80-100) fL MCH (25-34) pg MCHC (32-36) g/dL RDW Std Deviation (36.4-46.3) fL RDW Coeff of Stephanie (11.5-14.5) % Plt Count (130-400) K/uL MPV (7.4-10.4) fL Neutrophils % (Manual) % Lymphocytes % (Manual) % Monocytes % (Manual) % Eosinophils % (Manual) % Basophils % (Manual) % Neutrophils # (Manual) (1.4-6.5) K/uL Total Absolute Neuts (1.4-6.5) K/uL Lymphocytes # (Manual) (1.2-3.4) K/uL Total Abs Lymphocytes (1.2-3.4) K/uL Monocytes # (Manual) (0.11-0.59) K/uL Eosinophils # (Manual) (0-0.5) K/uL Basophils # (Manual) (0-0.2) K/uL RBC Morphology PT (9.0-12.0) Seconds INR (0.9-1.1) APTT (21.0-31.0) Seconds PTT Ratio ABG pH (7.35-7.45) ABG pCO2 (35-46) mmHg ABG pO2 (80-95) mmHg ABG HCO3 (19-24) mmol/L ABG O2 Saturation (90-95) % ABG Base Excess (-9-1.8) mEq/L Sung Test (Pos) Carboxyhemoglobin % THgb Barometric Pressure mm/Hg Oxygen Given POC Sodium 141 (135-144) mmol/L Sodium 139 (136-145) mmol/L POC Potassium 4.3 (3.3-5.0) mmol/L Potassium 4.6 (3.5-5.1) mmol/L POC Chloride 105 (101-112) mmol/L Chloride 105 (98-107) mmol/L Carbon Dioxide 21 (21-32) mmol/L POC Total CO2 23 L (24-31) mmol/L Anion Gap 13 H (3-11) POC Anion Gap 18.0 (16-25) mmol/L POC BUN 19 H (7-18) mg/dl BUN 17 (6-23) mg/dl Creatinine 0.86 (0.6-1.2) mg/dl POC Creatinine 0.8 (0.6-1.3) mg/dl Est Cr Clr Drug Dosing Not Reportable Est GFR ( Amer) 81.6 ml/min Est GFR (Non-Af Amer) 70.4 ml/min BUN/Creatinine Ratio 19.8 (10-20) Glucose 143 H (70-99(Fasting)) mg/dl POC Glucose (other) 155 H (70-99) mg/dl Calcium 10.2 H (8.5-10.1) mg/dl POC Ioniz Calcium Kamini 1.25 (1.12-1.32) mmol/l Troponin I High Sens (0-14) pg/ml B-Natriuretic Peptide 1073 H (0-100) pg/ml Lipase 19 (11-82) U/L Urine Color Urine Appearance (Clear) Urine pH (4.5-7.5) Ur Specific Tyler (1.000-1.030) Urine Protein (Negative) Urine Glucose (UA) (Negative) Urine Ketones (Negative) Urine Blood (Negative) Urine Nitrite (Negative) Urine Bilirubin (Negative) Urine Urobilinogen (Negative) Ur Leukocyte Esterase (Negative) SARS-CoV-2, RNA, NAAT (NEGATIVE) 12/06/21 12/06/21 12/06/21 Range/Units 19:50 19:50 19:50 WBC (4.8-10.8) K/uL RBC (4.2-5.4) M/uL Hgb (12.0-16.0) g/dL POC Hgb (12.0-16.0) g/dl Hct (37-47) % POC Hct (37-47) % MCV (80-100) fL MCH (25-34) pg MCHC (32-36) g/dL RDW Std Deviation (36.4-46.3) fL RDW Coeff of Stephanie (11.5-14.5) % Plt Count (130-400) K/uL MPV (7.4-10.4) fL Neutrophils % (Manual) % Lymphocytes % (Manual) % Monocytes % (Manual) % Eosinophils % (Manual) % Basophils % (Manual) % Neutrophils # (Manual) (1.4-6.5) K/uL Total Absolute Neuts (1.4-6.5) K/uL Lymphocytes # (Manual) (1.2-3.4) K/uL Total Abs Lymphocytes (1.2-3.4) K/uL Monocytes # (Manual) (0.11-0.59) K/uL Eosinophils # (Manual) (0-0.5) K/uL Basophils # (Manual) (0-0.2) K/uL RBC Morphology PT (9.0-12.0) Seconds INR (0.9-1.1) APTT (21.0-31.0) Seconds PTT Ratio ABG pH 7.13 L* (7.35-7.45) ABG pCO2 47 H (35-46) mmHg ABG pO2 114 H (80-95) mmHg ABG HCO3 15 L (19-24) mmol/L ABG O2 Saturation 97.4 H (90-95) % ABG Base Excess -13.6 L (-9-1.8) mEq/L Sung Test Pos (Pos) Carboxyhemoglobin 0.0 % THgb Barometric Pressure 725.3 mm/Hg Oxygen Given FIO2 70 POC Sodium (135-144) mmol/L Sodium (136-145) mmol/L POC Potassium (3.3-5.0) mmol/L Potassium (3.5-5.1) mmol/L POC Chloride (101-112) mmol/L Chloride (98-107) mmol/L Carbon Dioxide (21-32) mmol/L POC Total CO2 (24-31) mmol/L Anion Gap (3-11) POC Anion Gap (16-25) mmol/L POC BUN (7-18) mg/dl BUN (6-23) mg/dl Creatinine (0.6-1.2) mg/dl POC Creatinine (0.6-1.3) mg/dl Est Cr Clr Drug Dosing Est GFR ( Amer) ml/min Est GFR (Non-Af Amer) ml/min BUN/Creatinine Ratio (10-20) Glucose (70-99(Fasting)) mg/dl POC Glucose (other) (70-99) mg/dl Calcium (8.5-10.1) mg/dl POC Ioniz Calcium Kamini (1.12-1.32) mmol/l Troponin I High Sens (0-14) pg/ml B-Natriuretic Peptide (0-100) pg/ml Lipase (11-82) U/L Urine Color Yellow Urine Appearance Clear (Clear) Urine pH 5.5 (4.5-7.5) Ur Specific Tyler 1.006 (1.000-1.030) Urine Protein Negative (Negative) Urine Glucose (UA) Negative (Negative) Urine Ketones Negative (Negative) Urine Blood Negative (Negative) Urine Nitrite Negative (Negative) Urine Bilirubin Negative (Negative) Urine Urobilinogen Negative (Negative) Ur Leukocyte Esterase Negative (Negative) SARS-CoV-2, RNA, NAAT (NEGATIVE) 12/06/21 12/06/21 Range/Units 19:53 20:34 WBC (4.8-10.8) K/uL RBC (4.2-5.4) M/uL Hgb (12.0-16.0) g/dL POC Hgb (12.0-16.0) g/dl Hct (37-47) % POC Hct (37-47) % MCV (80-100) fL MCH (25-34) pg MCHC (32-36) g/dL RDW Std Deviation (36.4-46.3) fL RDW Coeff of Stephanie (11.5-14.5) % Plt Count (130-400) K/uL MPV (7.4-10.4) fL Neutrophils % (Manual) % Lymphocytes % (Manual) % Monocytes % (Manual) % Eosinophils % (Manual) % Basophils % (Manual) % Neutrophils # (Manual) (1.4-6.5) K/uL Total Absolute Neuts (1.4-6.5) K/uL Lymphocytes # (Manual) (1.2-3.4) K/uL Total Abs Lymphocytes (1.2-3.4) K/uL Monocytes # (Manual) (0.11-0.59) K/uL Eosinophils # (Manual) (0-0.5) K/uL Basophils # (Manual) (0-0.2) K/uL RBC Morphology PT (9.0-12.0) Seconds INR (0.9-1.1) APTT (21.0-31.0) Seconds PTT Ratio ABG pH 7.18 L* (7.35-7.45) ABG pCO2 43 (35-46) mmHg ABG pO2 161 H (80-95) mmHg ABG HCO3 16 L (19-24) mmol/L ABG O2 Saturation 99.0 H (90-95) % ABG Base Excess -12.3 L (-9-1.8) mEq/L Sung Test Pos (Pos) Carboxyhemoglobin % THgb Barometric Pressure 725.8 mm/Hg Oxygen Given FIO2 100% POC Sodium (135-144) mmol/L Sodium (136-145) mmol/L POC Potassium (3.3-5.0) mmol/L Potassium (3.5-5.1) mmol/L POC Chloride (101-112) mmol/L Chloride (98-107) mmol/L Carbon Dioxide (21-32) mmol/L POC Total CO2 (24-31) mmol/L Anion Gap (3-11) POC Anion Gap (16-25) mmol/L POC BUN (7-18) mg/dl BUN (6-23) mg/dl Creatinine (0.6-1.2) mg/dl POC Creatinine (0.6-1.3) mg/dl Est Cr Clr Drug Dosing Est GFR ( Amer) ml/min Est GFR (Non-Af Amer) ml/min BUN/Creatinine Ratio (10-20) Glucose (70-99(Fasting)) mg/dl POC Glucose (other) (70-99) mg/dl Calcium (8.5-10.1) mg/dl POC Ioniz Calcium Kamini (1.12-1.32) mmol/l Troponin I High Sens (0-14) pg/ml B-Natriuretic Peptide (0-100) pg/ml Lipase (11-82) U/L Urine Color Urine Appearance (Clear) Urine pH (4.5-7.5) Ur Specific Tyler (1.000-1.030) Urine Protein (Negative) Urine Glucose (UA) (Negative) Urine Ketones (Negative) Urine Blood (Negative) Urine Nitrite (Negative) Urine Bilirubin (Negative) Urine Urobilinogen (Negative) Ur Leukocyte Esterase (Negative) SARS-CoV-2, RNA, NAAT NEGATIVE (NEGATIVE) Imaging Data Radiologist's Impression: Chest X-Ray 12/06/21 19:09 XR chest 1V portable CLINICAL HISTORY: Atypical chest pain TECHNIQUE: Single frontal radiograph of the chest was obtained. Comparison: Comparison is made to chest radiograph 08/26/2013 FINDINGS: No lines and tubes are seen. Cardiomegaly is noted. Prominence and cephalization of the vasculature is seen. No evidence of pleural effusion or pneumothorax. IMPRESSION: Mild pulmonary edema. Cardiomegaly. ACT 112: Negative or not required by law. Electronically signed by: Champ Nuñez M.D. 12/06/2021 7:36 PM Chest CTA 12/06/21 19:10 CT angio chest PE protocol CLINICAL HISTORY: ro pe TECHNIQUE: Multidetector row helical CT of the chest was performed with angiographic protocol. Coronal and sagittal reformations were obtained. Coronal and sagittal MIPS were obtained from the axial data set and were submitted for review. Automated dose lowering techniques and/or adjustment according to patient size were utilized for this exam. CT DOSE: 361.11 mGy.cm Comparison: None available at the time of this dictation. FINDINGS: Lungs and pleura: Moderate right and small left pleural effusions are seen. Consolidations and groundglass opacities are seen in the bilateral lower lobes. Smooth interlobular septal thickening is seen. Heart and pericardium: Heart size is normal. No pericardial effusion. Vessels: No evidence of pulmonary embolism. Pulmonary trunk measures 33 mm in diameter. Mediastinum and lewis: Subcentimeter lymph nodes are seen. Chest wall and lower neck: Unremarkable. Abdomen: Unremarkable. Bones: Degenerative changes in the thoracic spine. IMPRESSION: 1. No evidence of pulmonary embolus. 2. Moderate right and small left pleural effusions. Bilateral lower lung consolidations are nonspecific and may reflect infectious/inflammatory process or atelectasis. 3. Moderate pulmonary edema. 4. Pulmonary hypertension. ACT 112: Negative or not required by law. Electronically signed by: Champ Nuñez M.D. 12/06/2021 8:37 PM Chest X-Ray 12/06/21 19:33 XR chest 1V portable CLINICAL HISTORY: ett placement TECHNIQUE: Single frontal radiograph of the chest was obtained. Comparison: Comparison is made to chest radiograph 12/06/2021 at 1917 hours. FINDINGS: Endotracheal tube is in satisfactory position. Cardiomegaly is noted. Prominence and cephalization of the vasculature is seen. No evidence of pleural effusion or pneumothorax. IMPRESSION: Satisfactory position of endotracheal tube. Redemonstration of cardiomegaly and mild pulmonary edema. ACT 112: Negative or not required by law. Electronically signed by: Champ Nuñez M.D. 12/06/2021 7:[address] 12/06/21 19:35 CT head/brain wo con CLINICAL HISTORY: ams Technique: Contiguous axial CT images of the head were acquired from the base of the skull to the vertex without intravenous contrast administration. Images were viewed in brain, subdural and bone windows. Automated dose lowering techniques and/or adjustment according to patient size were utilized for this exam. Comparison: None available at the time of this dictation. Findings: The ventricles, basal cisterns, and cerebral sulci are normal. There is no acute intracranial hemorrhage or evidence of acute territorial infarction. Neither mass effect, shift of the midline structures, nor abnormal extra-axial fluid collections are shown. Imaged portions of the paranasal sinuses and mastoid air cells are clear. The orbits appear normal. There are no acute fractures of the calvaria or scalp swelling. Impression: No acute intracranial hemorrhage, no evidence of acute territorial infarction or other acute intracranial disease process. ACT 112: Negative or not required by law. Electronically signed by: Champ Nuñez M.D. 12/06/2021 8:27 PM [facility] Narrative 1906: The patient was evaluated in room A12. A complete history and physical exam was performed Cardiac monitoring: An order was placed for continuous cardiac monitoring. The monitor shows a rate of 110 with sinus tachycardia rhythm Patient in severe respiratory distress. Attempted to give the patient some Ativan and try the patient on BiPAP. Chest x-ray conducted shows pulmonary edema. Patient was unable to tolerate the BiPAP and was becoming more fatigued. We tried high flow nasal cannula which the patient was becoming more lethargic, diaphoretic and started having white frothy foam coming from her mouth. No pink frothy sputum. Patient is moved to the resuscitation bay and intubated. See procedure note. Chest x-ray reviewed by me status post intubation shows possible worsening of the patient's pulmonary edema. Blood pressure stable. No nitroglycerin at this time. 1950: Patient's ABG shows pH of 7.13 PCO2 47 PO2 114 bicarb 15. patient will be sent for rule out PE CTA chest. 2054: On arrival back to resuscitation bay from CAT scan the patient's repeat pH shows a arterial pH of 7.18, PCO2 43, PO2 [address] of the head negative for ICH and CTA of the chest negative for PE does show pulmonary edema. Labs show a leukocytosis of 15.7. Troponin elevated at 22.1. Lasix 40 mg o rdered for the patient flash pulmonary edema and the patient will be admitted to the ICU under [facility] hospitalist team Dr. Siddiqi notified. Impression & Plan Flash pulmonary edema, Respiratory failure Discharge Plan Visit Data Chief Complaint: Shortness of Breath/Dyspnea Stated Complaint: SOB Discharge Problem: Flash pulmonary edema, Respiratory failure Patient Disposition: Admitted As Inpatient Discharge Instructions Interventions: ED Discharge Assessment Last Done: 12/06/21 22:58
[2021-12-07] MEDS: HEPARIN SOD 5,000 UNIT/0.5 ML VIAL SQ SCH ×3 (00:50→15:42)
[2021-12-07] MEDS: fentaNYL citrate 100 MCG/2 ML VIAL IV PRN ×2 (02:04→06:36)
[2021-12-07 05:14] LABS: Basophils # (auto) 0.02 K/uL (0-0.2); Basophils % (auto) 0.2 %; Eosinophils # (auto) 0.16 K/uL (0-0.5); Eosinophils % (auto) 1.4 %; Hematocrit (blood only) 39.8 % (37-47); Hemoglobin 12.7 g/dL (12.0-16.0); Immature Granulocytes # (auto) 0.03 K/uL (0.00-0.02); Immature Granulocytes % (auto) 0.3 %; Lymphocytes # (auto) 1.59 K/uL (1.2-3.4); Lymphocytes % (auto) 13.9 %; Mean Corpuscular Hemoglobin 27.7 pg (25-34); Mean Corpuscular Hgb Conc 31.9 g/dL (32-36); Mean Corpuscular Volume 86.7 fL (80-100); Mean Platelet Volume 10.4 fL (7.4-10.4); Monocytes # (auto) 1.04 K/uL (0.11-0.59); Monocytes % (auto) 9.1 %; Neutrophils # (auto) 8.64 K/uL (1.4-6.5); Neutrophils % (auto) 75.1 %; Platelet Count 309 K/uL (130-400); RDW Standard Deviation 50.9 fL (36.4-46.3); Red Blood Count 4.59 M/uL (4.2-5.4); White Blood Count 11.48 K/uL (4.8-10.8)
[2021-12-07 05:40] LABS: iSTAT Art Bld Gas pCO2 Correct 35 mmHg (35-46); iSTAT Art Bld Gas pH Corrected 7.451 (7.35-7.45); iSTAT Arterial Blood Gas HCO3 25 meg/L (19-24); iSTAT Arterial Blood Gas pCO2 36 mmHg (35-46); iSTAT Arterial Blood Gas pH 7.44 (7.35-7.45); iSTAT Arterial Blood Gas pO2 144 mmHg (80-95); iSTAT Arterial Blood Gas pO2 C 141; iSTAT Carbon Dioxide 26 mmol/L (24-31); iSTAT FiO2 40 %; iSTAT Hematocrit 37 % (37-47); iSTAT Hemoglobin 12.6 g/dl (12.0-16.0); iSTAT Potassium 4.1 mmol/L (3.3-5.0); iSTAT Site R Brachial; iSTAT Sodium 136 mmol/L (135-144)
[2021-12-07 05:49] LABS: Albumin Level 3.6 gm/dl (3.4-5.0); BUN Creatinine Ratio 22.4 (10-20); Bilirubin Direct 0.1 mg/dl (0-0.2); Bilirubin,Total 0.4 mg/dl (0.2-1.0); Calcium 9.1 mg/dl (8.5-10.1); Creatinine Clr Calc Pharmacy 49.8 ml/min; Est GFR (African American) 82.8 ml/min; Est GFR (Non-African American) 71.4 ml/min; Magnesium 2.1 mg/dl (1.7-2.4); Potassium 4.3 mmol/L (3.5-5.1); Total Protein 6.5 gm/dl (6.0-8.3)
[2021-12-07 05:51] LABS: Troponin I High Sensitivity 546.8 pg/ml (0-14)
--- NOTE | 2021-12-07 07:02 | Critical Care Progress Note ---
Date of Service December 07, 2021 Assessment & Plan (1) Admitted to intensive care unit: Plan: Reason Critically Ill: 66-year-old female presenting in acute respiratory failure with hypoxia secondary to flash pulmonary edema requiring emergent endotracheal intubation. NEURO - * Alert and following commands * Sedation: Propofol: Discontinue * Pain: Discontinue fentanyl CARDIAC/VASCULAR - * Acute heart failure: * Likely related to patient's recent valvular insufficiencies. * Stable for downgrade to telemetry * Monitor on telemetry. RESPIRATORY - * Acute hypoxic respiratory failure: Resolved * Secondary to flash pulmonary edema. * CTA w/o other acute findings. GI/NUTRITION - * Heart healthy diet with 2 L fluid restriction RENAL/LYTES - * No significant electrolyte derangements. - * D/C spivey ENDO - * No h/o DM or Thyroid Dz * BSGs per unit protocol. ISS --> gtt per unit policy. HEME - * Leukocytosis. * Likely stress reaction. * Monitor fever curve. ID - * Likely not infectious causes at this point. * Trend fever curve. LINES/IV ACCESS - * PIVs x3 DVT PROPHYLAXIS - * Heparin * SCDs Patient is stable for downgrade out of ICU. (2) Acute respiratory failure with hypoxia: (3) Flash pulmonary edema: (4) Unstable angina: (5) Chronic osteomyelitis of jaw: Admission and Anticipated Discharge Date Admission Date: December 06, 2021 Subjective Following commands, shakes head yes to wanting breathing tube removed Review of Systems Review of Systems: Unobtainable due to endotracheal tube Physical Exam Physical Exam: General: Sedated. nontoxic. Skin: Warm, dry, Head: Atraumatic Ears, nose, mouth and throat: airway obscured by endotracheal tube Cardiovascular: Normal peripheral perfusion Respiratory: Ventilator settings reviewed Gastrointestinal: Non distended Musculoskeletal: No deformity Results & Data Results & Data ([facility]) Vital Signs (Past 12 Hours) Vital Signs Temp Pulse Pulse Resp BP BP Pulse Ox 12/07/21 06:00 75 12 122/50 L 100 12/07/21 05:30 12 12/07/21 05:00 83 13 117/46 L 100 12/07/21 04:00 67 13 106/42 L 100 12/07/21 03:00 68 13 101/47 L 100 12/07/21 02:00 78 13 118/51 L 100 12/07/21 01:00 70 13 110/47 L 100 12/07/21 00:00 64 13 94/43 L 100 12/06/21 23:30 66 16 92/42 L 100 12/06/21 23:25 13 12/06/21 23:00 64 16 92/42 L 100 12/06/21 22:58 36.6 C 73 16 117/47 L 99 12/06/21 22:48 12/06/21 22:40 65 17 99 12/06/21 22:00 65 16 103/55 L 99 12/06/21 20:44 36.6 C 12/06/21 20:40 68 16 113/55 L 99 12/06/21 20:36 36.6 C 68 16 92/53 L 100 12/06/21 20:09 69 19 97 12/06/21 19:50 92 H 16 12/06/21 19:45 97 12/06/21 19:40 102 H 16 97 Pulse Ox 12/07/21 06:00 12/07/21 05:30 12/07/21 05:00 12/07/21 04:00 12/07/21 03:00 12/07/21 02:00 12/07/21 01:00 12/07/21 00:00 12/06/21 23:30 12/06/21 23:25 12/06/21 23:00 12/06/21 22:58 12/06/21 22:48 100 12/06/21 22:40 12/06/21 22:00 12/06/21 20:44 12/06/21 20:40 12/06/21 20:36 12/06/21 20:09 12/06/21 19:50 12/06/21 19:45 12/06/21 19:40 Critical Care Results & Data Vital Signs (Past 12 Hours) Vital Signs Temp Pulse Resp BP Pulse Ox Pulse Ox 12/07/21 08:00 92 H 16 138/56 L 99 12/07/21 07:30 83 12 121/50 L 100 12/07/21 07:10 80 12 110/49 L 99 12/07/21 07:00 37.4 C 80 12 110/46 L 99 12/07/21 06:45 92 H 14 104/46 L 99 12/07/21 06:30 74 12 107/47 L 98 12/07/21 06:15 72 12 115/47 L 99 12/07/21 06:00 75 12 122/50 L 100 12/07/21 05:30 12 12/07/21 05:00 83 13 117/46 L 100 12/07/21 04:00 67 13 106/42 L 100 12/07/21 03:00 68 13 101/47 L 100 12/07/21 02:00 78 13 118/51 L 100 12/07/21 01:00 70 13 110/47 L 100 12/07/21 00:00 64 13 94/43 L 100 12/06/21 23:30 66 16 92/42 L 100 12/06/21 23:25 13 12/06/21 23:00 64 16 92/42 L 100 12/06/21 22:58 36.6 C 73 16 117/47 L 99 12/06/21 22:48 100 12/06/21 22:40 65 17 99 12/06/21 22:00 65 16 103/55 L 99 Lab & Micro Results (Past 24 Hours) RBC 4.59 M/uL (4.2-5.4) 12/07/21 WBC 11.48 K/uL (4.8-10.8) H 12/07/21 Hgb 12.7 g/dL (12.0-16.0) 12/07/21 Hct 39.8 % (37-47) 12/07/21 MCV 86.7 fL (80-100) 12/07/21 MCH 27.7 pg (25-34) 12/07/21 MCHC 31.9 g/dL (32-36) L 12/07/21 RDW Standard Deviation 50.9 fL (36.4-46.3) H 12/07/21 RDW Coefficient of Variation 16.0 % (11.5-14.5) H 12/07/21 Plt Count 309 K/uL (130-400) 12/07/21 MPV 10.4 fL (7.4-10.4) 12/07/21 Neutrophils (%) (Auto) 75.1 % 12/07/21 Lymphocytes (%) (Auto) 13.9 % 12/07/21 Monocytes # (Auto) 1.04 K/uL (0.11-0.59) H 12/07/21 Eosinophils # (Auto) 0.16 K/uL (0-0.5) 12/07/21 Immature Granulocyte % (Auto) 0.3 % 12/07/21 Neutrophils # (Auto) 8.64 K/uL (1.4-6.5) H 12/07/21 Lymphocytes # (Auto) 1.59 K/uL (1.2-3.4) 12/07/21 Monocytes # (Auto) 1.04 K/uL (0.11-0.59) H 12/07/21 Eosinophils # (Auto) 0.16 K/uL (0-0.5) 12/07/21 Basophils # (Auto) 0.02 K/uL (0-0.2) 12/07/21 Immature Granulocyte # (Auto) 0.03 K/uL (0.00-0.02) H 12/07/21 ANC 8.84 K/uL (1.4-6.5) H 12/06/21 ALC 4.78 K/uL (1.2-3.4) H 12/06/21 Neutrophils % (Manual) 56.2 % 12/06/21 Lymphocytes % (Manual) 30.4 % 12/06/21 Monocytes % (Manual) 4.5 % 12/06/21 Eosinophils % (Manual) 8.0 % 12/06/21 Basophils % (Manual) 0.9 % 12/06/21 Neutrophils # (Manual) 8.84 K/uL (1.4-6.5) H 12/06/21 Lymphocytes # (Manual) 4.78 K/uL (1.2-3.4) H 12/06/21 Monocytes # (Manual) 0.71 K/uL (0.11-0.59) H 12/06/21 Eosinophils # (Manual) 1.26 K/uL (0-0.5) H 12/06/21 Basophils # (Manual) 0.14 K/uL (0-0.2) 12/06/21 Red Blood Cell Morphology Unremarkable 12/06/21 Na 138 mmol/L (136-145) 12/07/21 K 4.3 mmol/L (3.5-5.1) 12/07/21 Cl 103 mmol/L (98-107) 12/07/21 CO2 25 mmol/L (21-32) 12/07/21 Anion Gap 10 (3-11) 12/07/21 BUN 19 mg/dl (6-23) 12/07/21 Creatinine 0.85 mg/dl (0.6-1.2) 12/07/21 Estimated GFR ( Amer) 82.8 ml/min 12/07/21 Estimated GFR (Non-Af Amer) 71.4 ml/min 12/07/21 BUN/Creatinine Ratio 22.4 (10-20) H 12/07/21 Glu 88 mg/dl (70-99(Fasting)) 12/07/21 Ca 9.1 mg/dl (8.5-10.1) 12/07/21 Phosphorus Level 4.3 mg/dl (2.5-4.9) 12/06/21 Total Bilirubin 0.4 mg/dl (0.2-1.0) 12/07/21 Direct Bilirubin 0.1 mg/dl (0-0.2) 12/07/21 AST 39 U/L (13-39) 12/07/21 ALT 36 U/L (7-52) 12/07/21 Alkaline Phosphatase 95 U/L (34-104) 12/07/21 TP 6.5 gm/dl (6.0-8.3) 12/07/21 Albumin 3.6 gm/dl (3.4-5.0) 12/07/21 Mg 2.1 mg/dl (1.7-2.4) 12/07/21 05:00 12/07/21 Calcium Level 9.1 mg/dl (8.5-10.1) 12/07/21 05:00 12/07/21 Prothromb Time International Ratio 1.0 (0.9-1.1) 12/06/21 19:10 12/06/21 Blood Gas Barometric Pressure 725.8 mm/Hg 12/06/21 20:34 12/06/21 Arterial Blood pH 7.18 (7.35-7.45) L* 12/06/21 20:34 12/06/21 Arterial Blood Partial Pressure CO2 43 mmHg (35-46) 12/06/21 20:34 12/06/21 Arterial Blood Partial Pressure O2 161 mmHg (80-95) H 12/06/21 20:34 12/06/21 Arterial Blood HCO3 16 mmol/L (19-24) L 12/06/21 20:34 12/06/21 Arterial Blood Base Excess -12.3 mEq/L (-9-1.8) L 12/06/21 20:34 12/06/21 Arterial Blood Oxygen Saturation 99.0 % (90-95) H 12/06/21 20:34 12/06/21 Blood Gas Oxygen Given FIO2 100% 12/06/21 20:34 12/06/21 Sung Test NA 12/07/21 05:12/07/21 Blood Gas Barometric Pressure 725.8 mm/Hg 12/06/21 20:34 12/06/21 Diagnostic Findings (Past 24 Hours) Chest X-Ray 12/06/21 19:09 XR chest 1V portable CLINICAL HISTORY: Atypical chest pain TECHNIQUE: Single frontal radiograph of the chest was obtained. Comparison: Comparison is made to chest radiograph 08/26/2013 FINDINGS: No lines and tubes are seen. Cardiomegaly is noted. Prominence and cephalization of the vasculature is seen. No evidence of pleural effusion or pneumothorax. IMPRESSION: Mild pulmonary edema. Cardiomegaly. ACT 112: Negative or not required by law. Electronically signed by: Champ Nuñez M.D. 12/06/2021 7:36 PM Chest CTA 12/06/21 19:10 CT angio chest PE protocol CLINICAL HISTORY: ro pe TECHNIQUE: Multidetector row helical CT of the chest was performed with angiographic protocol. Coronal and sagittal reformations were obtained. Coronal and sagittal MIPS were obtained from the axial data set and were submitted for review. Automated dose lowering techniques and/or adjustment according to patient size were utilized for this exam. CT DOSE: 361.11 mGy.cm Comparison: None available at the time of this dictation. FINDINGS: Lungs and pleura: Moderate right and small left pleural effusions are seen. Consolidations and groundglass opacities are seen in the bilateral lower lobes. Smooth interlobular septal thickening is seen. Heart and pericardium: Heart size is normal. No pericardial effusion. Vessels: No evidence of pulmonary embolism. Pulmonary trunk measures 33 mm in diameter. Mediastinum and lewis: Subcentimeter lymph nodes are seen. Chest wall and lower neck: Unremarkable. Abdomen: Unremarkable. Bones: Degenerative changes in the thoracic spine. IMPRESSION: 1. No evidence of pulmonary embolus. 2. Moderate right and small left pleural effusions. Bilateral lower lung consolidations are nonspecific and may reflect infectious/inflammatory process or atelectasis. 3. Moderate pulmonary edema. 4. Pulmonary hypertension. ACT 112: Negative or not required by law. Electronically signed by: Champ Nuñez M.D. 12/06/2021 8:37 PM Chest X-Ray 12/06/21 19:33 XR chest 1V portable CLINICAL HISTORY: ett placement TECHNIQUE: Single frontal radiograph of the chest was obtained. Comparison: Comparison is made to chest radiograph 12/06/2021 at 1917 hours. FINDINGS: Endotracheal tube is in satisfactory position. Cardiomegaly is noted. Prominence and cephalization of the vasculature is seen. No evidence of pleural effusion or pneumothorax. IMPRESSION: Satisfactory position of endotracheal tube. Redemonstration of cardiomegaly and mild pulmonary edema. ACT 112: Negative or not required by law. Electronically signed by: Champ Nuñez M.D. 12/06/2021 7:[address] 12/06/21 19:35 CT head/brain wo con CLINICAL HISTORY: ams Technique: Contiguous axial CT images of the head were acquired from the base of the skull to the vertex without intravenous contrast administration. Images were viewed in brain, subdural and bone windows. Automated dose lowering techniques and/or adjustment according to patient size were utilized for this exam. Comparison: None available at the time of this dictation. Findings: The ventricles, basal cisterns, and cerebral sulci are normal. There is no acute intracranial hemorrhage or evidence of acute territorial infarction. Neither mass effect, shift of the midline structures, nor abnormal extra-axial fluid collections are shown. Imaged portions of the paranasal sinuses and mastoid air cells are clear. The orbits appear normal. There are no acute fractures of the calvaria or scalp swelling. Impression: No acute intracranial hemorrhage, no evidence of acute territorial infarction or other acute intracranial disease process. ACT 112: Negative or not required by law. Electronically signed by: Champ Nuñez M.D. 12/06/2021 8:27 PM I & O Totals 24 Hours 12/06/21 12/07/21 12/08/21 06:59 06:59 06:59 Intake Total 47.995 / 47.995 Output Total 1800 / 1800 400 / 400 Balance -1800 / -1800 -352.005 / -352.005 Cumulative 12/06/21 19:05 thru 12/07/21 08:05 Intake Total 47.995 Output Total 2200 Balance -2152.005 RT Ventilator Mngmt (Last Documented) Ventilator Ordered Settings Ventilator Support Mode Assist Control 12/07/21 04:00 Respiratory Rate 16 12/07/21 08:00 Ventilator Tidal Volume 450 12/07/21 07:00 Setting Minute Ventilation 5.8 12/07/21 04:00 Positive End Expiratory 8 12/07/21 07:00 Pressure Fraction of Inspired Oxygen 30 12/07/21 08:00 Machine Comment back from ct scan 12/06/21 20:09 Ventilator - PT Measurements Respiratory Rate 16 Exhaled Tidal Volume 450 Minute Ventilation 5.8 Peak Inspiratory Airway 20 Pressure Plateau Pressure 16.6 Respiratory Cycle Inspiratory: 1:3.6 Expiratory Ratio Inspiratory Phase Time 1.0 End-Tidal CO2 54 Static Lung Compliance 52.33 Dynamic Lung Compliance 37.50 Normal Static Lung Compliance 48.00 Patient Measurements Comment Pt extubated to 4L NC per Dr. Aviles. Pt SpO2 100% at this time. Coding Level of Care Code 91523 Subseq Hosp Care Lvl 3 Diagnoses Admitted to intensive care unit Z78.9 Acute respiratory failure with hypoxia J96.01 Flash pulmonary edema J81.0 Unstable angina I20.0 Chronic osteomyelitis of jaw M27.2
[2021-12-07] MEDS ORDERED: PERFLUTREN LIPID MICROSPHERE (DEFINITY) IV ONE (07:51)
[2021-12-07] MEDS: ASPIRIN 81 MG CHEW PO SCH (07:53)
[2021-12-07] MEDS: ROSUVASTATIN CALCIUM 20 MG TAB PO SCH (07:53)
--- NOTE | 2021-12-07 08:17 | Cardiology Consultation ---
Date of Consultation December 07, 2021 History of Present Illness Attending Physician: Aleja Reagan DO History of Present Illness 1. Single-vessel atherosclerotic coronary disease, status post drug-eluting stent to the mid right coronary artery for high-grade midvessel stenosis, December of 2012. 2. Repeat coronary intervention, May 2013, for in-stent restenosis. 3. Followup cardiac catheterization for symptoms since August 2013,demonstrating 50% distal narrowing of the right coronary artery but nohigh-grade obstruction. 4. Hyperlipidemia. 5. Aortic insufficiency Allergies Allergy/AdvReac Type Severity Reaction Status Date / Time eptifibatide Allergy Intermediate ITCHY RASH Verified 12/06/21 19:20 [From Integrilin] codeine AdvReac Intermediate NAUSEA/VOMI Verified 12/06/21 19:20 TING Home Medications Medication Instructions Recorded Confirmed Type amlodipine 10 mg tablet 10 mg PO DAILY 06/04/19 12/06/21 History aspirin 81 mg tablet,delayed 81 mg PO QAM 06/04/19 12/06/21 History release metoprolol tartrate 50 mg tablet 50 mg PO BID 06/04/19 12/06/21 History (Lopressor) fexofenadine 180 mg tablet 180 mg PO DAILY 11/30/21 12/06/21 History fluticasone propionate 50 2 spray INTRANASAL DAILY 11/30/21 12/06/21 History mcg/actuation nasal spray,suspension (Flonase Allergy Relief) losartan 25 mg tablet 25 mg PO QAM 11/30/21 12/06/21 History calcium citrate 250 mg 1 tab PO BID 12/06/21 12/06/21 History calcium-vitamin D3 5 mcg (200 unit) tablet multivit-iron 18 mg-folic acid 400 1 tab PO DAILY 12/06/21 12/06/21 History mcg-calcium 500 mg-minerals tablet (Women's One Daily) rosuvastatin 40 mg tablet 40 mg PO DAILY 12/06/21 12/06/21 History sodium chloride 0.65 % nasal spray 1 spray INTRANASAL DIRECTED PRN 12/06/21 12/06/21 History aerosol (Saline Nasal) Patient History Medical History Aortic regurgitation Severe per 10/25/21 echo CAD (coronary artery disease) MICHELA to mid RCA (12/2012), "repeat coronary intervention" (05/2013) for in- stent restenosis per cardiology records Hyperlipidemia Hypertension Surgical History History of cardiac cath MICHELA to mid RCA (12/2012), "repeat coronary intervention" (05/2013) for in- stent restenosis, (2013) > "50% distal narrowing of the RCA but no high-grade obstruction" per cardiology records Social History Smoking Status: Never smoker Second Hand Exposure: No; Hx Alcohol Use: Yes Alcohol type: wine Hx Substance Use: No Preferred Language: Senegalese Communication Ability: Effective Corporate Giving Manager Required: No Beliefs That Will Affect Care: None Current Living Situation: Spouse Other Information That Helps Us Care for You: No Feels Safe at Home: Yes Safety Concerns: Feels Safe At This Time Assistive Devices: Glasses Results & Data ([facility]) Vital Signs (Past 12 Hours) Vital Signs Temp Pulse Pulse Resp BP BP Pulse Ox 12/07/21 06:00 75 12 122/50 L 100 12/07/21 05:30 12 12/07/21 05:00 83 13 117/46 L 100 12/07/21 04:00 67 13 106/42 L 100 12/07/21 03:00 68 13 101/47 L 100 12/07/21 02:00 78 13 118/51 L 100 12/07/21 01:00 70 13 110/47 L 100 12/07/21 00:00 64 13 94/43 L 100 12/06/21 23:30 66 16 92/42 L 100 12/06/21 23:25 13 12/06/21 23:00 64 16 92/42 L 100 12/06/21 22:58 36.6 C 73 16 117/47 L 99 12/06/21 22:48 12/06/21 22:40 65 17 99 12/06/21 22:00 65 16 103/55 L 99 12/06/21 20:44 36.6 C 12/06/21 20:40 68 16 113/55 L 99 12/06/21 20:36 36.6 C 68 16 92/53 L 100 Pulse Ox 12/07/21 06:00 12/07/21 05:30 12/07/21 05:00 12/07/21 04:00 12/07/21 03:00 12/07/21 02:00 12/07/21 01:00 12/07/21 00:00 12/06/21 23:30 12/06/21 23:25 12/06/21 23:00 12/06/21 22:58 12/06/21 22:48 100 12/06/21 22:40 12/06/21 22:00 12/06/21 20:44 12/06/21 20:40 12/06/21 20:36
[2021-12-07] MEDS ORDERED: FUROSEMIDE 40 MG/4 ML VIAL IV SCH (09:00)
--- NOTE | 2021-12-07 09:42 | XRay Report ---
XR chest 1V portable CLINICAL HISTORY: f/u COMPARISON STUDY: Chest radiograph and chest CT December 06, 2021. FINDINGS: Tip of endotracheal tube is approximately 1.5 cm above the rocio. Tip of nasogastric tube is below the lower aspect of this image but at least within the proximal stomach. There is no pneumot horax. Small to moderate right and small left pleural effusions are again noted. Lower lung airspace opacities are present. Pulmonary edema has improved. IMPRESSION: 1. Satisfactory positioning of the endotracheal tube. 2. Interval improvement in pulmonary edema. 3. Small to moderate right and small left pleural effusions. ACT 112: Negative or not required by law. Electronically signed by: Moreno Nazario M.D. 12/07/2021 9:40 AM
--- NOTE | 2021-12-07 10:02 | Electrocardiogram Report ---
Test Reason : Blood Pressure : / mmHG Vent. Rate : 094 BPM Atrial Rate : 094 BPM P-R Int : 156 ms QRS Dur : 090 ms QT Int : 378 ms P-R-T Axes : 053 068 006 degrees QTc Int : 472 ms Normal sinus rhythm Possible Left atrial enlargement ST depression, consider subendocardial injury Abnormal ECG When compared with ECG of 26-AUG-2013 10:58, No significant change was found Confirmed by Grabiel Vyas ([id number]) on 12/07/2021 10:02:04 AM Referred By: REFERRED SELF Confirmed By:Bolivar Vyas
--- NOTE | 2021-12-07 10:04 | Electrocardiogram Report ---
Test Reason : Blood Pressure : / mmHG Vent. Rate : 126 BPM Atrial Rate : 126 BPM P-R Int : 150 ms QRS Dur : 092 ms QT Int : 298 ms P-R-T Axes : 030 054 088 degrees QTc Int : 431 ms Poor data quality, interpretation may be adversely affected Sinus tachycardia Possible Left atrial enlargement Marked ST abnormality, possible lateral subendocardial injury Abnormal ECG When compared with ECG of 26-AUG-2013 10:58, ST now depressed in Lateral leads T wave inversion now evident in Lateral leads Confirmed by Grabiel Vyas ([id number]) on 12/07/2021 10:03:59 AM Referred By: REFERRED SELF Confirmed By:Bolivar Vyas
--- NOTE | 2021-12-07 10:05 | Electrocardiogram Report ---
Test Reason : Blood Pressure : / mmHG Vent. Rate : 070 BPM Atrial Rate : 070 BPM P-R Int : 148 ms QRS Dur : 092 ms QT Int : 432 ms P-R-T Axes : 035 098 047 degrees QTc Int : 466 ms Normal sinus rhythm Rightward axis Minimal voltage criteria for LVH, may be normal variant Borderline ECG When compared with ECG of 06-DEC-2021 19:45, (unconfirmed) ST no longer depressed in Anterolateral leads Inverted T waves have replaced nonspecific T wave abnormality in Anterior leads Confirmed by Grabiel Vyas ([id number]) on 12/07/2021 10:04:52 AM Referred By: REFERRED SELF Confirmed By:Bolivar Vyas
--- NOTE | 2021-12-07 11:33 | Electrocardiogram Report ---
Test Reason : Blood Pressure : / mmHG Vent. Rate : 078 BPM Atrial Rate : 078 BPM P-R Int : 144 ms QRS Dur : 088 ms QT Int : 402 ms P-R-T Axes : 049 087 021 degrees QTc Int : 458 ms Normal sinus rhythm Minimal voltage criteria for LVH, may be normal variant T wave abnormality, consider anterior ischemia Abnormal ECG When compared with ECG of 07-DEC-2021 00:32, (unconfirmed) No significant change was found Confirmed by Grabiel Vyas ([id number]) on 12/07/2021 11:33:19 AM Referred By: REFERRED SELF Confirmed By:Bolivar Vyas
--- NOTE | 2021-12-07 11:46 | Cardiology Consultation ---
Date of Consultation December 07, 2021 Assessment & Plan (1) Flash pulmonary edema: (2) Acute respiratory failure with hypoxia: (3) ASCVD (arteriosclerotic cardiovascular disease): (4) Troponin I above reference range: (5) Sinus tachycardia: (6) Aortic insufficiency: (7) Mitral regurgitation: (8) Systolic dysfunction: Continue IV Lasix Maintain electrolytes NPO after midnight for probable diagnostic cardiac catheterization Maintain telemetry. Check blood cultures Supervising Physician Co-Signing Physician Notes Patient seen and examined with Eitan Reed PA-C. Agree with findings and assessment as above. Pt with quickly worsening aortic insufficiency presents with flash pulmonary edema. Anticipate will require AVR, will proceed with cardiac cath in AM. 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 In December 2012 the patient presented with chest and throat discomfort, pattern consistent with crescendo angina, precipitated by high-level activity (exercise spin class) with diagnostic cardiac catheterization revealing high-grade single-vessel mid right coronary a rtery stenosis, receiving a drug-eluting stent without complication. In May 2013 she underwent repeat coronary intervention for in-stent restenosis. Follow-up diagnostic cardiac catheterization last on August 27, 2013 at [facility] revealed right dominant coronary anatomy with a patent mid RCA stent with no in-stent restenosis and a 50% mid RCA lesion that was not hemodynamically significant by FFR. Recommendations at that time were for aggressive risk factor and lifestyle modification, continued medical management. Resting echocardiography on October 25, 2021, obtained due to hypertension and auscultation of a murmur, revealed mild reduction in LV systolic function, ejection fraction 48%, with a small size basal inferior posterior wall motion abnormality with hypokinesis of the segments. The aortic valve was described as trileaflet, with severe aortic valve regurgitation. Mild to moderate mitral regurgitation was noted along with mild pulmonary hypertension. Estimated pulmonary artery systolic pressure was 45 to 50 mmHg. The aortic root was described as mildly enlarged at 4.1 cm. The proximal ascending aorta was normal in size. Due to the newly observed echocardiographic abnormalities patient was referred for transesophageal echocardiography which transpired on December 01, 2021, demonstrating a borderline dilated left ventricle with preserved LV systolic function, ejection fraction 55 to 60%. Minimal thickening of the aortic valve leaflets with mild restricted mobility of the left coronary cusp noted along with moderate to severe eccentric aortic in sufficiency. On December 06, 2021 patient was partaking in a yoga class when she developed an acute cough and acute dyspnea, acute respiratory distress. Patient left the yoga class, driving herself to the ER where she was found to have acute hypoxic respiratory distress that required endotracheal intubation after not responding to noninvasic positive pressure ventilation. EKGs without acute ST segment changes. High sensitivity Troponin I was 22.1 on presentation then 678.7 and 546.8. Patient received IV furosemide 40 mg IV BID with improvement. Chest x-ray with pulmonary edema. Chest CT on 12/06/2021 without PE, demonstrating moderate pulmonary edema with right greater than left pleural effusions. Patient successfully extubated this morning. at bedside. Information obtained from patient and . Active. Gardening over the weekend without difficulty. Still working daytime caregiver. + Mild fever last week. Mild intermittent night sweats. No soaking night sweats. No rigors. No rash. Jaw osteomyelitis last year, treated with oral antibiotic therapy. Occasional cough thought to be from dysfunction of the left eustachian tube and seasonal allergic rhinitis. No chest pain, palpitations, orthopnea, PND, or peripheral edema. No nausea, vomiting, or diarrhea. No dizziness, near syncope or syncope. Allergies Allergy/AdvReac Type Severity Reaction Status Date / Time eptifibatide Allergy Intermediate ITCHY RASH Verified 12/06/21 19:20 [From Integrilin] codeine AdvReac Intermediate NAUSEA/VOMI Verified 12/06/21 19:20 TING Home Medications Medication Instructions Recorded Confirmed Type amlodipine 10 mg tablet 10 mg PO DAILY 06/04/19 12/06/21 History aspirin 81 mg tablet,delayed 81 mg PO QAM 06/04/19 12/06/21 History release metoprolol tartrate 50 mg tablet 50 mg PO BID 06/04/19 12/06/21 History (Lopressor) fexofenadine 180 mg tablet 180 mg PO DAILY 11/30/21 12/06/21 History fluticasone propionate 50 2 spray INTRANASAL DAILY 11/30/21 12/06/21 History mcg/actuation nasal spray,suspension (Flonase Allergy Relief) losartan 25 mg tablet 25 mg PO QAM 11/30/21 12/06/21 History calcium citrate 250 mg 1 tab PO BID 12/06/21 12/06/21 History calcium-vitamin D3 5 mcg (200 unit) tablet multivit-iron 18 mg-folic acid 400 1 tab PO DAILY 12/06/21 12/06/21 History mcg-calcium 500 mg-minerals tablet (Women's One Daily) rosuvastatin 40 mg tablet 40 mg PO DAILY 12/06/21 12/06/21 History sodium chloride 0.65 % nasal spray 1 spray INTRANASAL DIRECTED PRN 12/06/21 12/06/21 History aerosol (Saline Nasal) Patient History Medical History Aortic regurgitation Severe per 10/25/21 echo CAD (coronary artery disease) MICHELA to mid RCA (12/2012), "repeat coronary intervention" (05/2013) for in- stent restenosis per cardiology records Hyperlipidemia Hypertension Surgical History History of cardiac cath MICHELA to mid RCA (12/2012), "repeat coronary intervention" (05/2013) for in- stent restenosis, (2013) > "50% distal narrowing of the RCA but no high-grade obstruction" per cardiology records Social History Smoking Status: Never smoker Second Hand Exposure: No; Hx Alcohol Use: Yes Alcohol type: wine Hx Substance Use: No Preferred Language: Latvian Communication Ability: Effective Strategic Marketing Leader Required: No Beliefs That Will Affect Care: None marital status: Current Living Situation: Spouse Other Information That Helps Us Care for You: No Feels Safe at Home: Yes Safety Concerns: Feels Safe At This Time Assistive Devices: None Review of Systems Review of Systems: Complete Review of Systems is as stated above, negative, or noncontributory. Physical Exam Physical Exam: General: Thin, age appropriate female. Horse voice. A&Ox3. NAD. HENT: Normocephalic. Atraumatic. Eyes: PER. Conjunctiva pink, sclera clear. Neck: + JVD. Transmitted systolic murmur. Heart: Regular, tachycardic at 110 bpm. Grade II/ systolic murmur. Grade II diastolic murmur. No rub. PMI is nondisplaced. Lungs: Faint rales anteriorly. No wheeze Abdomen: +BS. Soft. Nontender. No masses or organomegaly. Extremities: No clubbing, cyanosis, or edema. Limited neurological examination is without focal deficits. Pulses: Posterior tibial=2/4. Results & Data ([facility]) Vital Signs (Past 12 Hours) Vital Signs Temp Pulse Resp BP Pulse Ox 12/07/21 08:00 92 H 16 138/56 L 99 12/07/21 07:30 83 12 121/50 L 100 12/07/21 07:10 80 12 110/49 L 99 12/07/21 07:00 37.4 C 80 12 110/46 L 99 12/07/21 06:45 92 H 14 104/46 L 99 12/07/21 06:30 74 12 107/47 L 98 12/07/21 06:15 72 12 115/47 L 99 12/07/21 06:00 75 12 122/50 L 100 12/07/21 05:30 12 12/07/21 05:00 83 13 117/46 L 100 12/07/21 04:00 67 13 106/42 L 100 12/07/21 03:00 68 13 101/47 L 100 12/07/21 02:00 78 13 118/51 L 100 12/07/21 01:00 70 13 110/47 L 100 12/07/21 00:00 64 13 94/43 L 100 Laboratory Results Laboratory Results - last 24 hr 12/06/21 12/06/21 12/06/21 19:10 19:10 19:10 WBC 15.73 H RBC 5.36 Hgb 15.0 POC Hgb Hct 47.8 H POC Hct MCV 89.2 MCH 28.0 MCHC 31.4 L RDW Std Deviation 52.7 H RDW Coeff of Stephanie 16.2 H Plt Count 391 MPV 11.6 H Immature Gran % (Auto) Neut % (Auto) Lymph % (Auto) Rush % (Auto) Eos % (Auto) Baso % (Auto) Neut # (Auto) Lymph # (Auto) Rush # (Auto) Eos # (Auto) Baso # (Auto) Immature Gran # (Auto) Neutrophils % (Manual) 56.2 Lymphocytes % (Manual) 30.4 Monocytes % (Manual) 4.5 Eosinophils % (Manual) 8.0 Basophils % (Manual) 0.9 Neutrophils # (Manual) 8.84 H Total Absolute Neuts 8.84 H Lymphocytes # (Manual) 4.78 H Total Abs Lymphocytes 4.78 H Monocytes # (Manual) 0.71 H Eosinophils # (Manual) 1.26 H Basophils # (Manual) 0.14 RBC Morphology Unremarkable PT 10.5 INR 1.0 APTT 28.4 PTT Ratio 1.0 Sample Site POC pH POC pCO2 POC pO2 POC HCO3 POC Base Excess ABG pH ABG pH (Temp Correct) ABG pCO2 ABG pCO2 (Temp Corrct ABG pO2 POC ABG pO2 at Pt Temp ABG HCO3 POC ABG O2 Sat ABG O2 Saturation ABG Base Excess Sung Test Carboxyhemoglobin Barometric Pressure Oxygen Given O2 Delivery Device POC O2 Rate Minute Ventilation POC FiO2 Tidal Volume PEEP POC Sodium Sodium POC Potassium Potassium POC Chloride Chloride Carbon Dioxide POC Total CO2 Anion Gap POC Anion Gap POC BUN BUN Creatinine POC Creatinine Est Cr Clr Drug Dosing Est GFR ( Amer) Est GFR (Non-Af Amer) BUN/Creatinine Ratio Glucose POC Glucose POC Glucose (other) Calcium POC Ioniz Calcium Kamini Phosphorus Magnesium Total Bilirubin Direct Bilirubin AST ALT Alkaline Phosphatase Troponin I High Sens 22.1 H B-Natriuretic Peptide Total Protein Albumin Lipase Urine Color Urine Appearance Urine pH Ur Specific [place] Urine Protein Urine Glucose (UA) Urine Ketones Urine Blood Urine Nitrite Urine Bilirubin Urine Urobilinogen Ur Leukocyte Esterase Nasal Screen MRSA (PCR) SARS-CoV-2, RNA, NAAT 12/06/21 12/06/21 12/06/21 19:10 19:16 19:50 WBC RBC Hgb POC Hgb 16.7 H Hct POC Hct 49 H MCV MCH MCHC RDW Std Deviation RDW Coeff of Stephanie Plt Count MPV Immature Gran % (Auto) Neut % (Auto) Lymph % (Auto) Rush % (Auto) Eos % (Auto) Baso % (Auto) Neut # (Auto) Lymph # (Auto) Rush # (Auto) Eos # (Auto) Baso # (Auto) Immature Gran # (Auto) Neutrophils % (Manual) Lymphocytes % (Manual) Monocytes % (Manual) Eosinophils % (Manual) Basophils % (Manual) Neutrophils # (Manual) Total Absolute Neuts Lymphocytes # (Manual) Total Abs Lymphocytes Monocytes # (Manual) Eosinophils # (Manual) Basophils # (Manual) RBC Morphology PT INR APTT PTT Ratio Sample Site POC pH POC pCO2 POC pO2 POC HCO3 POC Base Excess ABG pH ABG pH (Temp Correct) ABG pCO2 ABG pCO2 (Temp Corrct ABG pO2 POC ABG pO2 at Pt Temp ABG HCO3 POC ABG O2 Sat ABG O2 Saturation ABG Base Excess Sung Test Carboxyhemoglobin Barometric Pressure Oxygen Given O2 Delivery Device POC O2 Rate Minute Ventilation POC FiO2 Tidal Volume PEEP POC Sodium 141 Sodium 139 POC Potassium 4.3 Potassium 4.6 POC Chloride 105 Chloride 105 Carbon Dioxide 21 POC Total CO2 23 L Anion Gap 13 H POC Anion Gap 18.0 POC BUN 19 H BUN 17 Creatinine 0.86 POC Creatinine 0.8 Est Cr Clr Drug Dosing Not Reportable Est GFR ( Amer) 81.6 Est GFR (Non-Af Amer) 70.4 BUN/Creatinine Ratio 19.8 Glucose 143 H POC Glucose POC Glucose (other) 155 H Calcium 10.2 H POC Ioniz Calcium Kamini 1.25 Phosphorus Magnesium Total Bilirubin Direct Bilirubin AST ALT Alkaline Phosphatase Troponin I High Sens B-Natriuretic Peptide 1073 H Total Protein Albumin Lipase 19 Urine Color Urine Appearance Urine pH Ur Specific [place] Urine Protein Urine Glucose (UA) Urine Ketones Urine Blood Urine Nitrite Urine Bilirubin Urine Urobilinogen Ur Leukocyte Esterase Nasal Screen MRSA (PCR) SARS-CoV-2, RNA, NAAT 12/06/21 12/06/21 12/06/21 19:50 19:50 19:50 WBC RBC Hgb POC Hgb Hct POC Hct MCV MCH MCHC RDW Std Deviation RDW Coeff of Stephanie Plt Count MPV Immature Gran % (Auto) Neut % (Auto) Lymph % (Auto) Rush % (Auto) Eos % (Auto) Baso % (Auto) Neut # (Auto) Lymph # (Auto) Rush # (Auto) Eos # (Auto) Baso # (Auto) Immature Gran # (Auto) Neutrophils % (Manual) Lymphocytes % (Manual) Monocytes % (Manual) Eosinophils % (Manual) Basophils % (Manual) Neutrophils # (Manual) Total Absolute Neuts Lymphocytes # (Manual) Total Abs Lymphocytes Monocytes # (Manual) Eosinophils # (Manual) Basophils # (Manual) RBC Morphology PT INR APTT PTT Ratio Sample Site POC pH POC pCO2 POC pO2 POC HCO3 POC Base Excess ABG pH 7.13 L* ABG pH (Temp Correct) ABG pCO2 47 H ABG pCO2 (Temp Corrct ABG pO2 114 H POC ABG pO2 at Pt Temp ABG HCO3 15 L POC ABG O2 Sat ABG O2 Saturation 97.4 H ABG Base Excess -13.6 L Sung Test Pos Carboxyhemoglobin 0.0 Barometric Pressure 725.3 Oxygen Given FIO2 70 O2 Delivery Device POC O2 Rate Minute Ventilation POC FiO2 Tidal Volume PEEP POC Sodium Sodium POC Potassium Potassium POC Chloride Chloride Carbon Dioxide POC Total CO2 Anion Gap POC Anion Gap POC BUN BUN Creatinine POC Creatinine Est Cr Clr Drug Dosing Est GFR ( Amer) Est GFR (Non-Af Amer) BUN/Creatinine Ratio Glucose POC Glucose POC Glucose (other) Calcium POC Ioniz Calcium Kamini Phosphorus Magnesium Total Bilirubin Direct Bilirubin AST ALT Alkaline Phosphatase Troponin I High Sens B-Natriuretic Peptide Total Protein Albumin Lipase Urine Color Yellow Urine Appearance Clear Urine pH 5.5 Ur Specific [place] 1.006 Urine Protein Negative Urine Glucose (UA) Negative Urine Ketones Negative Urine Blood Negative Urine Nitrite Negative Urine Bilirubin Negative Urine Urobilinogen Negative Ur Leukocyte Esterase Negative Nasal Screen MRSA (PCR) SARS-CoV-2, RNA, NAAT 12/06/21 12/06/21 12/06/21 19:53 20:34 22:53 WBC RBC Hgb POC Hgb Hct POC Hct MCV MCH MCHC RDW Std Deviation RDW Coeff of Stephanie Plt Count MPV Immature Gran % (Auto) Neut % (Auto) Lymph % (Auto) Rush % (Auto) Eos % (Auto) Baso % (Auto) Neut # (Auto) Lymph # (Auto) Rush # (Auto) Eos # (Auto) Baso # (Auto) Immature Gran # (Auto) Neutrophils % (Manual) Lymphocytes % (Manual) Monocytes % (Manual) Eosinophils % (Manual) Basophils % (Manual) Neutrophils # (Manual) Total Absolute Neuts Lymphocytes # (Manual) Total Abs Lymphocytes Monocytes # (Manual) Eosinophils # (Manual) Basophils # (Manual) RBC Morphology PT INR APTT PTT Ratio Sample Site POC pH POC pCO2 POC pO2 POC HCO3 POC Base Excess ABG pH 7.18 L* ABG pH (Temp Correct) ABG pCO2 43 ABG pCO2 (Temp Corrct ABG pO2 161 H POC ABG pO2 at Pt Temp ABG HCO3 16 L POC ABG O2 Sat ABG O2 Saturation 99.0 H ABG Base Excess -12.3 L Sung Test Pos Carboxyhemoglobin Barometric Pressure 725.8 Oxygen Given FIO2 100% O2 Delivery Device POC O2 Rate Minute Ventilation POC FiO2 Tidal Volume PEEP POC Sodium Sodium POC Potassium Potassium POC Chloride Chloride Carbon Dioxide POC Total CO2 Anion Gap POC Anion Gap POC BUN BUN Creatinine POC Creatinine Est Cr Clr Drug Dosing Est GFR ( Amer) Est GFR (Non-Af Amer) BUN/Creatinine Ratio Glucose POC Glucose 122 H POC Glucose (other) Calcium POC Ioniz Calcium Kamini Phosphorus Magnesium Total Bilirubin Direct Bilirubin AST ALT Alkaline Phosphatase Troponin I High Sens B-Natriuretic Peptide Total Protein Albumin Lipase Urine Color Urine Appearance Urine pH Ur Specific [place] Urine Protein Urine Glucose (UA) Urine Ketones Urine Blood Urine Nitrite Urine Bilirubin Urine Urobilinogen Ur Leukocyte Esterase Nasal Screen MRSA (PCR) SARS-CoV-2, RNA, NAAT NEGATIVE 12/06/21 12/06/21 12/06/21 23:25 23:43 23:43 WBC RBC Hgb POC Hgb Hct POC Hct MCV MCH MCHC RDW Std Deviation RDW Coeff of Stephanie Plt Count MPV Immature Gran % (Auto) Neut % (Auto) Lymph % (Auto) Rush % (Auto) Eos % (Auto) Baso % (Auto) Neut # (Auto) Lymph # (Auto) Rush # (Auto) Eos # (Auto) Baso # (Auto) Immature Gran # (Auto) Neutrophils % (Manual) Lymphocytes % (Manual) Monocytes % (Manual) Eosinophils % (Manual) Basophils % (Manual) Neutrophils # (Manual) Total Absolute Neuts Lymphocytes # (Manual) Total Abs Lymphocytes Monocytes # (Manual) Eosinophils # (Manual) Basophils # (Manual) RBC Morphology PT INR APTT PTT Ratio Sample Site R Radial POC pH 7.49 H POC pCO2 34 L POC pO2 299 H POC HCO3 26 H POC Base Excess 2.0 H ABG pH ABG pH (Temp Correct) ABG pCO2 ABG pCO2 (Temp Corrct ABG pO2 POC ABG pO2 at Pt Temp ABG HCO3 POC ABG O2 Sat 100.0 H ABG O2 Saturation ABG Base Excess Sung Test Pass Carboxyhemoglobin Barometric Pressure Oxygen Given O2 Delivery Device Ventilator POC O2 Rate 16 Minute Ventilation 7.2 POC FiO2 80 Tidal Volume 450 PEEP 8 POC Sodium Sodium POC Potassium Potassium POC Chloride Chloride Carbon Dioxide POC Total CO2 27 Anion Gap POC Anion Gap POC BUN BUN Creatinine POC Creatinine Est Cr Clr Drug Dosing Est GFR ( Amer) Est GFR (Non-Af Amer) BUN/Creatinine Ratio Glucose POC Glucose POC Glucose (other) Calcium POC Ioniz Calcium Kamini Phosphorus 4.3 Magnesium Total Bilirubin Direct Bilirubin AST ALT Alkaline Phosphatase Troponin I High Sens 678.7 H* D B-Natriuretic Peptide Total Protein Albumin Lipase Urine Color Urine Appearance Urine pH Ur Specific [place] Urine Protein Urine Glucose (UA) Urine Ketones Urine Blood Urine Nitrite Urine Bilirubin Urine Urobilinogen Ur Leukocyte Esterase Nasal Screen MRSA (PCR) Negative SARS-CoV-2, RNA, NAAT 12/07/21 12/07/21 12/07/21 05:00 05:00 05:00 WBC 11.48 H RBC 4.59 Hgb 12.7 POC Hgb Hct 39.8 POC Hct MCV 86.7 MCH 27.7 MCHC 31.9 L RDW Std Deviation 50.9 H RDW Coeff of Stephanie 16.0 H Plt Count 309 MPV 10.4 Immature Gran % (Auto) 0.3 Neut % (Auto) 75.1 Lymph % (Auto) 13.9 Rush % (Auto) 9.1 Eos % (Auto) 1.4 Baso % (Auto) 0.2 Neut # (Auto) 8.64 H Lymph # (Auto) 1.59 Rush # (Auto) 1.04 H Eos # (Auto) 0.16 Baso # (Auto) 0.02 Immature Gran # (Auto) 0.03 H Neutrophils % (Manual) Lymphocytes % (Manual) Monocytes % (Manual) Eosinophils % (Manual) Basophils % (Manual) Neutrophils # (Manual) Total Absolute Neuts Lymphocytes # (Manual) Total Abs Lymphocytes Monocytes # (Manual) Eosinophils # (Manual) Basophils # (Manual) RBC Morphology PT INR APTT PTT Ratio Sample Site POC pH POC pCO2 POC pO2 POC HCO3 POC Base Excess ABG pH ABG pH (Temp Correct) ABG pCO2 ABG pCO2 (Temp Corrct ABG pO2 POC ABG pO2 at Pt Temp ABG HCO3 POC ABG O2 Sat ABG O2 Saturation ABG Base Excess Sung Test Carboxyhemoglobin Barometric Pressure Oxygen Given O2 Delivery Device POC O2 Rate Minute Ventilation POC FiO2 Tidal Volume PEEP POC Sodium Sodium 138 POC Potassium Potassium 4.3 POC Chloride Chloride 103 Carbon Dioxide 25 POC Total CO2 Anion Gap 10 POC Anion Gap POC BUN BUN 19 Creatinine 0.85 POC Creatinine Est Cr Clr Drug Dosing 49.8 Est GFR ( Amer) 82.8 Est GFR (Non-Af Amer) 71.4 BUN/Creatinine Ratio 22.4 H Glucose 88 POC Glucose POC Glucose (other) Calcium 9.1 POC Ioniz Calcium Kamini Phosphorus Magnesium 2.1 Total Bilirubin 0.4 Direct Bilirubin 0.1 AST 39 ALT 36 Alkaline Phosphatase 95 Troponin I High Sens Cancelled 546.8 H* B-Natriuretic Peptide Total Protein 6.5 Albumin 3.6 Lipase Urine Color Urine Appearance Urine pH Ur Specific [place] Urine Protein Urine Glucose (UA) Urine Ketones Urine Blood Urine Nitrite Urine Bilirubin Urine Urobilinogen Ur Leukocyte Esterase Nasal Screen MRSA (PCR) SARS-CoV-2, RNA, NAAT 12/07/21 05:22 WBC RBC Hgb POC Hgb 12.6 Hct POC Hct 37 MCV MCH MCHC RDW Std Deviation RDW Coeff of Stephanie Plt Count MPV Immature Gran % (Auto) Neut % (Auto) Lymph % (Auto) [place] % (Auto) Eos % (Auto) Baso % (Auto) Neut # (Auto) Lymph # (Auto) Rush # (Auto) Eos # (Auto) Baso # (Auto) Immature Gran # (Auto) Neutrophils % (Manual) Lymphocytes % (Manual) Monocytes % (Manual) Eosinophils % (Manual) Basophils % (Manual) Neutrophils # (Manual) Total Absolute Neuts Lymphocytes # (Manual) Total Abs Lymphocytes Monocytes # (Manual) Eosinophils # (Manual) Basophils # (Manual) RBC Morphology PT INR APTT PTT Ratio Sample Site R Brachial POC pH 7.44 POC pCO2 36 POC pO2 144 H POC HCO3 25 H POC Base Excess 1.0 ABG pH ABG pH (Temp Correct) 7.451 H ABG pCO2 ABG pCO2 (Temp Corrct 35 ABG pO2 POC ABG pO2 at Pt Temp 141 ABG HCO3 POC ABG O2 Sat 99.0 H ABG O2 Saturation ABG Base Excess Sung Test NA Carboxyhemoglobin Barometric Pressure Oxygen Given O2 Delivery Device Ventilator POC O2 Rate 13 Minute Ventilation 5.8 POC FiO2 40 Tidal Volume 450 PEEP 8 POC Sodium 136 Sodium POC Potassium 4.1 Potassium POC Chloride Chloride Carbon Dioxide POC Total CO2 26 Anion Gap POC Anion Gap POC BUN BUN Creatinine POC Creatinine Est Cr Clr Drug Dosing Est GFR ( Amer) Est GFR (Non-Af Amer) BUN/Creatinine Ratio Glucose POC Glucose POC Glucose (other) Calcium POC Ioniz Calcium [place]amin[place] Phosphorus Magnesium Total Bilirubin Direct Bilirubin AST ALT Alkaline Phosphatase Troponin I High Sens B-Natriuretic Peptide Total Protein Albumin Lipase Urine Color Urine Appearance Urine pH Ur Specific [place] Urine Protein Urine Glucose (UA) Urine Ketones Urine Blood Urine Nitrite Urine Bilirubin Urine Urobilinogen Ur Leukocyte Esterase Nasal Screen MRSA (PCR) SARS-CoV-2, RNA, NAAT Diagnostic Findings December 07, 2021 TTE Interpretation Summary ([facility], Dr. Diallo): Normal size LV. Low normal LV systolic function. EF 45-50%. Normal RV systolic function. Normal LA size. Normal RA size. Mild aortic regurgitation. Moderate to severe mitral regurgitation.
--- NOTE | 2021-12-07 11:52 | Hospitalist Progress Note ---
Date of Service December 07, 2021 Assessment & Plan (1) Acute respiratory failure with hypoxia: Plan: 2/2 flash pulmonary edema 2/2 acute worsening of aortic insufficiency. Also with mitral regurgitation present which was chronic per cardiology. She is not extubated and breathing well on room air, looking very well considering. Per cardiology will cont IV Lasix and plan for heart catheterization in am. May need to consider valve replacement. (2) Flash pulmonary edema: Plan: 2/2 above. Improving, cont intravenous lasix but will hold off on dosing her in am as she is already 3L net negative with overnight dose and she will be receiving contrast during her heart catheterization. Also she is breathing well on room air at this point. Re-evaluate this if she becomes acutely hypoxic. (3) Mitral regurgitation: (4) Aortic insufficiency: (5) Troponin I above reference range: Plan: heart cath in am. (6) ASCVD (arteriosclerotic cardiovascular disease): Plan: Known h/o cardiac disease s/p stent in RCA December 2012 for high grade stenosis. Repeat coronary intervention May 2013 for in-stent restenosis. Last cath performed 2013 without intervention. Currently without anginal symptoms. Cont medical management including ASA 81, losartan, Lopressor and Crestor. (7) Chronic osteomyelitis of jaw: Plan: h/o this in 2017, underwent prolonged abx course. No current infection present. (8) DVT prophylaxis: Plan: Lovenox Full Dispo-cont PCU monitoring [facility] Admission and Anticipated Discharge Date Admission Date: December 06, 2021 Subjective 60-year-old female presented to the hospital in respiratory distress by personal vehicle. Her oxygen level in the triage area was 70%. She was intubated in the ER and placed in the ICU overnight chest x-ray revealed pulmonary edema and intubation occurred after unsuccessful tolerance of BiPAP with him creased fatigue. White blood cell count was 15.7 on admission normal renal function, normal lites. Normal INR. ABG revealed evidence of respiratory acidosis with a pH of 7.13, PCO2 of 47, bicarb of 21. Chest CT with contrast revealed no evidence of PE. Head CT revealed no acute intracranial event. She was admitted to the ICU for continued management of acute respiratory failure with hypoxia secondary to flash pulmonary edema requiring emergent endotracheal intubation. This was felt secondary to acute heart failure in the setting of known valvular insufficiencies. Cardiology has been consulted. Echocardiogram was performed revealing an ejection fraction of 45 to 50% with normal right ventricular systolic function and moderate to severe mitral regurgitation. Previous transesophageal echocardiogram on 12/01/2021 reveals an ejection fraction for 55 to 60% with aortic insufficiency. She currently is denying SOB or chest pain She has a bit of sore throat but this is improved with cold water She is fatigued but doing well overall is by her side. Review of Systems Review of Systems: All systems were reviewed and negative except as indicated above. Physical Exam Physical Exam: CONSTITUTIONAL: WNWD, vitals as above, generally well- appearing, NAD EYES: normal conjunctivae, no scleral icterus ENT: external ear and nose normal, MMM NECK: trachea midline RESPIRATORY: clear to auscultation bilaterally, no crackles, rales or wheezes, normal respiratory effort CARDIOVASCULAR: regular rate and rhythm, S1 and 2 heard without murmurs, gallops or rubs, no JVD, no peripheral edema CHEST: inspection of chest was normal GASTROINTESTINAL: soft, nontender, ND, no guarding MUSCULOSKELETAL: strength 5/5 throughout, head is normocephalic and atraumatic SKIN: warm and dry NEUROLOGIC: CN 2-12 grossly intact, no sensory deficit, normal cognition, normal speech, no tremor, no gross focal deficits. PSYCHIATRIC: alert cooperative and oriented to person, place and time. Results & Data Results & Data ([facility]) Vital Signs (Past 12 Hours) Vital Signs Temp Pulse Resp BP Pulse Ox 12/07/21 08:00 92 H 16 138/56 L 99 12/07/21 07:30 83 12 121/50 L 100 12/07/21 07:10 80 12 110/49 L 99 12/07/21 07:00 37.4 C 80 12 110/46 L 99 12/07/21 06:45 92 H 14 104/46 L 99 12/07/21 06:30 74 12 107/47 L 98 12/07/21 06:15 72 12 115/47 L 99 12/07/21 06:00 75 12 122/50 L 100 12/07/21 05:30 12 12/07/21 05:00 83 13 117/46 L 100 12/07/21 04:00 67 13 106/42 L 100 12/07/21 03:00 68 13 101/47 L 100 12/07/21 02:00 78 13 118/51 L 100 12/07/21 01:00 70 13 110/47 L 100 12/07/21 00:00 64 13 94/43 L 100 Laboratory Results Short CBC 12/06/21 12/07/21 Range/Units 19:10 05:00 WBC 15.73 H 11.48 H (4.8-10.8) K/uL Hgb 15.0 12.7 (12.0-16.0) g/dL Hct 47.8 H 39.8 (37-47) % Plt Count 391 309 (130-400) K/uL BMP 12/06/21 12/07/21 19:10 05:00 Sodium 139 138 Potassium 4.6 4.3 Chloride 105 103 Carbon Dioxide 21 25 BUN 17 19 Creatinine 0.86 0.85 Glucose 143 H 88 Calcium 10.2 H 9.1 Liver Function 12/07/21 Range/Units 05:00 Total Bilirubin 0.4 (0.2-1.0) mg/dl Direct Bilirubin 0.1 (0-0.2) mg/dl AST 39 (13-39) U/L ALT 36 (7-52) U/L Alkaline Phosphatase 95 (34-104) U/L Albumin 3.6 (3.4-5.0) gm/dl Urine 12/06/21 Range/Units 19:50 Urine Color Yellow Urine Appearance Clear (Clear) Urine pH 5.5 (4.5-7.5) Ur Specific [place] 1.006 (1.000-1.030) Urine Protein Negative (Negative) Urine Glucose (UA) Negative (Negative) Diagnostic Findings Chest X-Ray 12/07/21 07:00 XR chest 1V portable CLINICAL HISTORY: f/u COMPARISON STUDY: Chest radiograph and chest CT December 06, 2021. FINDINGS: Tip of endotracheal tube is approximately 1.5 cm above the rocio. Tip of nasogastric tube is below the lower aspect of this image but at least within the proximal stomach. There is no pneumothorax. Small to moderate right and small left pleural effusions are again noted. Lower lung airspace opacities are present. Pulmonary edema has improved. IMPRESSION: 1. Satisfactory positioning of the endotracheal tube. 2. Interval improvement in pulmonary edema. 3. Small to moderate right and small left pleural effusions. ACT 112: Negative or not required by law. Electronically signed by: Moreno Nazario M.D. 12/07/2021 9:40 AM Medications Administered Current Inpatient Medications Amlodipine Besylate (Amlodipine Besylate 5 Mg Tab) 10 mg PO DAILY CARLOS Stop: 01/07/22 08:59 Aspirin (Aspirin 81 Mg Chew) 81 mg PO QAM CARLOS Stop: 01/06/22 08:59 Last Admin: 12/07/21 07:53 Dose: 81 mg Documented by: Fexofenadine HCl (Fexofenadine Hcl 180 Mg Tab) 180 mg PO DAILY CARLOS Stop: 01/07/22 08:59 Fluticasone Propionate (Fluticasone Propionate Na Spr 16 Gm Btl) 2 sprays WILIAN DAILY CARLOS Stop: 01/07/22 08:59 Heparin Sodium (Porcine) (Heparin Sod 5,000 Unit/0.5 Ml Vial) 5,000 units SQ Q8H CARLOS Stop: 01/06/22 00:00 Last Admin: 12/07/21 07:53 Dose: 5,000 units Documented by: Losartan Potassium (Losartan Potassium 25 Mg Tab) 25 mg PO QAM CARLOS Stop: 01/07/22 08:59 Metoprolol Tartrate (Metoprolol Tartrate 50 Mg Tab) 50 mg PO BID CARLOS Stop: 01/06/22 20:59 Multivitamins (Multivitamin Tab) 1 tab PO DAILY CARLOS Stop: 01/07/22 08:59 Multivitamins/Minerals (Calcium 600mg + Vit D 400 Iu Tab) 1 tab PO BID CARLOS Stop: 01/06/22 20:59 Rosuvastatin Calcium (Rosuvastatin Calcium 20 Mg Tab) 40 mg PO DAILY CARLOS Stop: 01/06/22 08:59 Last Admin: 12/07/21 07:53 Dose: 40 mg Documented by: (1) Mitral regurgitation Cardiac valve disease etiology: etiology unspecified Qualified Code(s): I34.0 - Nonrheumatic mitral (valve) insufficiency
[2021-12-07] MEDS ORDERED: ACETAMINOPHEN 325 MG TAB PO PRN (17:17)
[2021-12-07] MEDS: CALCIUM 600MG + VIT D 400 IU TAB PO SCH (20:17)
[2021-12-07] MEDS: METOPROLOL TARTRATE 50 MG TAB PO SCH (20:18)
--- NOTE | 2021-12-08 05:58 | Hospitalist Progress Note ---
Date of Service December 08, 2021 Assessment & Plan (1) Acute heart failure with preserved ejection fraction: Plan: 2/2 acute worsening of valvular disease. Per plan below. (2) Acute respiratory failure with hypoxia: Plan: 2/2 flash pulmonary edema 2/2 acute worsening of aortic insufficiency. Also with mitral regurgitation present which was chronic per cardiology. She is now extubated since 12/07 and breathing well on room air, looking very well considering. Do not see a need for additional Lasix at this time given her good oxygenation on room air and clear lungs to auscultation. Defer additional diuretic to cardiology. Plan for right and left heart cath in am. May need to consider valve replacement. (3) Flash pulmonary edema: Plan: 2/2 above. Resolved after IV Lasix given yesterday. Cont to monitor respiratory status. (4) Mitral regurgitation: Plan: per Cardiology (5) Aortic insufficiency: Plan: acute worsening, may need cardiac surgery. Proceeding with heart cath in am and will go from there. (6) Troponin I above reference range: Plan: assess with diagnostic heart cath in the morning. (7) ASCVD (arteriosclerotic cardiovascular disease): Plan: Known h/o cardiac disease s/p stent in RCA December 2012 for high grade stenosis. Repeat coronary intervention May 2013 for in-stent restenosis. Last cath performed 2013 without intervention. Currently without anginal symptoms. Cont medical management including ASA 81, losartan, Lopressor and Crestor. (8) Chronic osteomyelitis of jaw: Plan: h/o this in 2017, underwent prolonged abx course. No current infection present. (9) DVT prophylaxis: Plan: Lovenox Full Dispo-cont PCU monitoring Aleja Reagan DO [facility] Hospitalist Admission and Anticipated Discharge Date Admission Date: December 06, 2021 Subjective 60-year-old female presented to the hospital in respiratory distress 2/2 acute heart failure 2/2 acute valve insufficiency. Known h/o CAD with stent and in- stent restenosis in the past. She currently is denying SOB or chest pain She is doing well and has no issues from a symptom standpoint. She expressed an interest in doing yoga maneuvers in the bed Verbalized understanding of the change in schedule for her cath to tomorrow. Review of Systems Review of Systems: All systems were reviewed and negative except as indicated above. Physical Exam Physical Exam: CONSTITUTIONAL: WNWD, vitals as above, generally well- appearing, NAD EYES: normal conjunctivae, no scleral icterus ENT: external ear and nose normal, MMM NECK: trachea midline RESPIRATORY: clear to auscultation bilaterally, no crackles, rales or wheezes, normal respiratory effort CARDIOVASCULAR: regular rate and rhythm, S1 and 2 heard without murmurs, gallops or rubs, no JVD, no peripheral edema CHEST: inspection of chest was normal GASTROINTESTINAL: soft, nontender, ND, no guarding MUSCULOSKELETAL: strength 5/5 throughout, head is normocephalic and atraumatic SKIN: warm and dry NEUROLOGIC: CN 2-12 grossly intact, no sensory deficit, normal cognition, normal speech, no tremor, no gross focal deficits. PSYCHIATRIC: alert cooperative and oriented to person, place and time. Results & Data Results & Data ([facility]) Vital Signs (Past 12 Hours) Vital Signs Temp Pulse Resp BP Pulse Ox 12/08/21 04:10 37.5 C 86 18 126/59 L 96 12/07/21 23:29 37.6 C H 79 16 107/51 L 94 12/07/21 19:23 37.2 C 86 16 116/57 L 95 Laboratory Results Short CBC 12/08/21 Range/Units 05:45 WBC 7.72 (4.8-10.8) K/uL Hgb 12.1 (12.0-16.0) g/dL Hct 38.7 (37-47) % Plt Count 309 (130-400) K/uL BMP 12/08/21 05:45 Sodium 139 Potassium 3.9 Chloride 105 Carbon Dioxide 25 BUN 12 Creatinine 0.72 Glucose 92 Calcium 8.8 Liver Function 12/08/21 Range/Units 05:45 Total Bilirubin 0.5 (0.2-1.0) mg/dl Direct Bilirubin 0.1 (0-0.2) mg/dl AST 24 (13-39) U/L ALT 28 (7-52) U/L Alkaline Phosphatase 82 (34-104) U/L Albumin 3.4 (3.4-5.0) gm/dl Medications Administered Current Inpatient Medications Acetaminophen (Acetaminophen 325 Mg Tab) 650 mg PO Q4H PRN PRN Reason: pain/fever Stop: 01/06/22 17:16 Last Admin: 12/07/21 18:04 Dose: 650 mg Documented by: Amlodipine Besylate (Amlodipine Besylate 5 Mg Tab) 10 mg PO DAILY CARLOS Stop: 01/07/22 08:59 Last Admin: 12/08/21 08:15 Dose: 10 mg Documented by: Aspirin (Aspirin 81 Mg Chew) 81 mg PO QAM CARLOS Stop: 01/06/22 08:59 Last Admin: 12/08/21 08:15 Dose: 81 mg Documented by: Enoxaparin Sodium (Enoxaparin Inj 30 Mg/0.3 Ml Syr) 30 mg SQ QAM CARLOS Stop: 01/07/22 08:59 Last Admin: 12/08/21 09:46 Dose: 30 mg Documented by: Fexofenadine HCl (Fexofenadine Hcl 180 Mg Tab) 180 mg PO DAILY CARLOS Stop: 01/07/22 08:59 Last Admin: 12/08/21 08:16 Dose: 180 mg Documented by: Fluticasone Propionate (Fluticasone Propionate Na Spr 16 Gm Btl) 2 sprays WILIAN D AILY [facility] Stop: 01/07/22 08:59 Last Admin: 12/08/21 08:17 Dose: 2 sprays Documented by: Sodium Chloride (Nss 1000ml) 1,000 mls @ 1 mls/hr IV .Q24H CARLOS Stop: 01/08/22 08:59 Losartan Potassium (Losartan Potassium 25 Mg Tab) 25 mg PO QAM CARLOS Stop: 01/07/22 08:59 Last Admin: 12/08/21 08:18 Dose: 25 mg Documented by: Metoprolol Tartrate (Metoprolol Tartrate 50 Mg Tab) 50 mg PO BID CARLOS Stop: 01/06/22 20:59 Last Admin: 12/08/21 08:18 Dose: 50 mg Documented by: Multivitamins (Multivitamin Tab) 1 tab PO DAILY CARLOS Stop: 01/07/22 08:59 Last Admin: 12/08/21 08:18 Dose: 1 tab Documented by: Multivitamins/Minerals (Calcium 600mg + Vit D 400 Iu Tab) 1 tab PO BID CARLOS Stop: 01/06/22 20:59 Last Admin: 12/08/21 08:15 Dose: 1 tab Documented by: Rosuvastatin Calcium (Rosuvastatin Calcium 20 Mg Tab) 40 mg PO DAILY CARLOS Stop: 01/06/22 08:59 Last Admin: 12/08/21 08:18 Dose: 40 mg Documented by: (1) Mitral regurgitation Cardiac valve disease etiology: etiology unspecified Qualified Code(s): I34.0 - Nonrheumatic mitral (valve) insufficiency
[2021-12-08 06:21] LABS: Basophils # (auto) 0.03 K/uL (0-0.2); Basophils % (auto) 0.4 %; Eosinophils # (auto) 0.41 K/uL (0-0.5); Eosinophils % (auto) 5.3 %; Hematocrit (blood only) 38.7 % (37-47); Hemoglobin 12.1 g/dL (12.0-16.0); Immature Granulocytes # (auto) 0.02 K/uL (0.00-0.02); Immature Granulocytes % (auto) 0.3 %; Lymphocytes # (auto) 1.59 K/uL (1.2-3.4); Lymphocytes % (auto) 20.6 %; Mean Corpuscular Hemoglobin 27.3 pg (25-34); Mean Corpuscular Hgb Conc 31.3 g/dL (32-36); Mean Corpuscular Volume 87.4 fL (80-100); Monocytes # (auto) 0.93 K/uL (0.11-0.59); Neutrophils # (auto) 4.74 K/uL (1.4-6.5); Neutrophils % (auto) 61.4 %; Platelet Count 309 K/uL (130-400); RDW Coefficient of Variation 16.1 % (11.5-14.5); RDW Standard Deviation 51.7 fL (36.4-46.3); Red Blood Count 4.43 M/uL (4.2-5.4); White Blood Count 7.72 K/uL (4.8-10.8)
[2021-12-08 06:55] LABS: Albumin Level 3.4 gm/dl (3.4-5.0); BUN Creatinine Ratio 16.7 (10-20); Bilirubin Direct 0.1 mg/dl (0-0.2); Bilirubin,Total 0.5 mg/dl (0.2-1.0); Calcium 8.8 mg/dl (8.5-10.1); Creatinine Clr Calc Pharmacy 55.4 ml/min; Est GFR (African American) 101.1 ml/min; Est GFR (Non-African American) 87.3 ml/min; Potassium 3.9 mmol/L (3.5-5.1); Total Protein 6.5 gm/dl (6.0-8.3)
[2021-12-08] MEDS: CALCIUM 600MG + VIT D 400 IU TAB PO SCH ×2 (08:15→20:10)
[2021-12-08] MEDS: ASPIRIN 81 MG CHEW PO SCH (08:15)
[2021-12-08] MEDS: amLODIPine BESYLATE 5 MG TAB PO SCH (08:15)
[2021-12-08] MEDS: FEXOFENADINE HCL 180 MG TAB PO SCH (08:16)
[2021-12-08] MEDS: FLUTICASONE PROPIONATE NA SPR 16 GM BTL NAE SCH (08:17)
[2021-12-08] MEDS: MULTIVITAMIN TAB PO SCH (08:18)
[2021-12-08] MEDS: LOSARTAN POTASSIUM 25 MG TAB PO SCH (08:18)
[2021-12-08] MEDS: ROSUVASTATIN CALCIUM 20 MG TAB PO SCH (08:18)
[2021-12-08] MEDS: METOPROLOL TARTRATE 50 MG TAB PO SCH ×2 (08:18→21:55)
--- NOTE | 2021-12-08 09:10 | Cardiology Progress Note ---
Date of Service December 08, 2021 Assessment & Plan (1) Flash pulmonary edema: (2) Acute respiratory failure with hypoxia: (3) ASCVD (arteriosclerotic cardiovascular disease): (4) Troponin I above reference range: (5) Sinus tachycardia: (6) Aortic insufficiency: (7) Mitral regurgitation: (8) Systolic dysfunction: Plan: The patient by exam today is of pulmonary edema. Given her history of mixed valvular disease as well as coronary artery disease with prior coronary intervention, I believe she should proceed with a right and left heart catheterization. She will be scheduled for this procedure tomorrow morning. The patient can eat starting with breakfast today. She understands the risk, benefit and intent of the procedure. She previously had some bleeding from the right groin after one of her heart catheterizations. She described it as a pseudoaneurysm but she did not receive any surgery and they just held extra pressure. We will start on the left side and only if necessary will proceed from the right femoral artery and vein. Admission and Anticipated Discharge Date Admission Date: December 06, 2021 Subjective The patient feels much improved. Review of Systems Review of Systems: Review of Systems: See HPI for pertinent positives. All other 10 point review of systems are negative. Physical Exam Physical Exam: General: no acute distress and stated age Head: normocephalic, no masses, lesions, tenderness or abnormalities Eyes: conjunctiva are pink and non-injected, sclera clear Neck: supple, no adenopathy, no bruits, normal jugular venous pulse, no hepatojugular reflux Chest: normal shape and normal respiratory effort Lungs: clear to auscultation and percussion Cardiac Exam: - regular rate & rhythm, no murmurs gallops or rubs - normal S1, normal S2 Pulses: 2(+) throughout Abdomen: abdomen soft, non-tender, no abnormal masses and no hepatosplenomegaly Musculoskeletal: no gait disturbance, no joint inflammation, no deforming arthritis Extremities: no edema and no cyanosis Neuro: grossly normal exam Results & Data ([facility]) Vital Signs (Past 12 Hours) Vital Signs Temp Pulse Resp BP Pulse Ox 12/08/21 07:22 36.9 C 101 H 17 135/63 97 12/08/21 04:10 37.5 C 86 18 126/59 L 96 12/07/21 23:29 37.6 C H 79 16 107/51 L 94 Laboratory Results Laboratory Results - last 24 hr 12/07/21 12/07/21 12/07/21 12:33 17:44 23:14 WBC RBC Hgb Hct MCV MCH MCHC RDW Std Deviation RDW Coeff of Stephanie Plt Count MPV Immature Gran % (Auto) Neut % (Auto) Lymph % (Auto) Perry % (Auto) Eos % (Auto) Baso % (Auto) Neut # (Auto) Lymph # (Auto) Perry # (Auto) Eos # (Auto) Baso # (Auto) Immature Gran # (Auto) Sodium Potassium Chloride Carbon Dioxide Anion Gap BUN Creatinine Est Cr Clr Drug Dosing Est GFR ( Amer) Est GFR (Non-Af Amer) BUN/Creatinine Ratio Glucose POC Glucose 122 H Calcium Magnesium Total Bilirubin Direct Bilirubin AST ALT Alkaline Phosphatase Troponin I High Sens 294.1 H* 191.0 H* D Total Protein Albumin 12/08/21 12/08/21 05:45 05:45 WBC 7.72 RBC 4.43 Hgb 12.1 Hct 38.7 MCV 87.4 MCH 27.3 MCHC 31.3 L RDW Std Deviation 51.7 H RDW Coeff of Stephanie 16.1 H Plt Count 309 MPV 11.0 H Immature Gran % (Auto) 0.3 Neut % (Auto) 61.4 Lymph % (Auto) 20.6 Perry % (Auto) 12.0 Eos % (Auto) 5.3 Baso % (Auto) 0.4 Neut # (Auto) 4.74 Lymph # (Auto) 1.59 Perry # (Auto) 0.93 H Eos # (Auto) 0.41 Baso # (Auto) 0.03 Immature Gran # (Auto) 0.02 Sodium 139 Potassium 3.9 Chloride 105 Carbon Dioxide 25 Anion Gap 9 BUN 12 Creatinine 0.72 Est Cr Clr Drug Dosing 55.4 Est GFR ( Amer) 101.1 Est GFR (Non-Af Amer) 87.3 BUN/Creatinine Ratio 16.7 Glucose 92 POC Glucose Calcium 8.8 Magnesium 2.0 Total Bilirubin 0.5 Direct Bilirubin 0.1 AST 24 ALT 28 Alkaline Phosphatase 82 Troponin I High Sens Total Protein 6.5 Albumin 3.4 Medications Administered Current Inpatient Medications Acetaminophen (Acetaminophen 325 Mg Tab) 650 mg PO Q4H PRN PRN Reason: pain/fever Stop: 01/06/22 17:16 Last Admin: 12/07/21 18:04 Dose: 650 mg Documented by: Amlodipine Besylate (Amlodipine Besylate 5 Mg Tab) 10 mg PO DAILY CARLOS Stop: 01/07/22 08:59 Last Admin: 12/08/21 08:15 Dose: 10 mg Documented by: Aspirin (Aspirin 81 Mg Chew) 81 mg PO QAM CARLOS Stop: 01/06/22 08:59 Last Admin: 12/08/21 08:15 Dose: 81 mg Documented by: Enoxaparin Sodium (Enoxaparin Inj 30 Mg/0.3 Ml Syr) 30 mg SQ QAM [facility] Stop: 01/07/22 08:59 Fexofenadine HCl (Fexofenadine Hcl 180 Mg Tab) 180 mg PO DAILY CARLOS Stop: 01/07/22 08:59 Last Admin: 12/08/21 08:16 Dose: 180 mg Documented by: Fluticasone Propionate (Fluticasone Propionate Na Spr 16 Gm Btl) 2 sprays WILIAN DAILY CARLOS Stop: 01/07/22 08:59 Last Admin: 12/08/21 08:17 Dose: 2 sprays Documented by: Sodium Chloride (Nss 1000ml) 1,000 mls @ 1 mls/hr IV .Q24H CARLOS Stop: 01/07/22 09:14 Losartan Potassium (Losartan Potassium 25 Mg Tab) 25 mg PO QAM [facility] Stop: 01/07/22 08:59 Last Admin: 12/08/21 08:18 Dose: 25 mg Documented by: Metoprolol Tartrate (Metoprolol Tartrate 50 Mg Tab) 50 mg PO BID CARLOS Stop: 01/06/22 20:59 Last Admin: 12/08/21 08:18 Dose: 50 mg Documented by: Multivitamins (Multivitamin Tab) 1 tab PO DAILY CARLOS Stop: 01/07/22 08:59 Last Admin: 12/08/21 08:18 Dose: 1 tab Documented by: Multivitamins/Minerals (Calcium 600mg + Vit D 400 Iu Tab) 1 tab PO BID CARLOS Stop: 01/06/22 20:59 Last Admin: 12/08/21 08:15 Dose: 1 tab Documented by: Rosuvastatin Calcium (Rosuvastatin Calcium 20 Mg Tab) 40 mg PO DAILY CARLOS Stop: 01/06/22 08:59 Last Admin: 12/08/21 08:18 Dose: 40 mg Documented by: (1) Mitral regurgitation Cardiac valve disease etiology: etiology unspecified Qualified Code(s): I34.0 - Nonrheumatic mitral (valve) insufficiency
[2021-12-08] MEDS ORDERED: SODIUM CHLORIDE 0.9% 1000ML 1,000 ML IV SCH (09:15)
[2021-12-08] MEDS: ENOXAPARIN INJ 30 MG/0.3 ML SYR SQ SCH (09:46)
[2021-12-08] MEDS ORDERED: Nursing to Pharmacy Communication SCH (10:15)
[2021-12-08] MEDS ORDERED: POLYETHYLENE (MIRALAX) 17 GM PACK PO PRN (19:27)
[2021-12-08] MEDS: DOCUSATE SODIUM/SENNA 50/8.6MG TAB PO SCH (20:10)
[2021-12-09] MEDS ORDERED: LIDOCAINE 1% LOCAL 20 ML VIAL ONE (07:17)
[2021-12-09] MEDS: DOCUSATE SODIUM/SENNA 50/8.6MG TAB PO SCH ×2 (07:31→16:43)
[2021-12-09] MEDS: CALCIUM 600MG + VIT D 400 IU TAB PO SCH ×2 (07:31→20:41)
[2021-12-09] MEDS: MULTIVITAMIN TAB PO SCH (07:32)
[2021-12-09] MEDS: FLUTICASONE PROPIONATE NA SPR 16 GM BTL NAE SCH (07:32)
[2021-12-09] MEDS: FEXOFENADINE HCL 180 MG TAB PO SCH (07:32)
[2021-12-09] MEDS: ROSUVASTATIN CALCIUM 20 MG TAB PO SCH (07:34)
[2021-12-09] MEDS: METOPROLOL TARTRATE 50 MG TAB PO SCH ×2 (07:34→20:41)
[2021-12-09] MEDS: LOSARTAN POTASSIUM 25 MG TAB PO SCH (07:34)
[2021-12-09] MEDS: amLODIPine BESYLATE 5 MG TAB PO SCH (07:34)
[2021-12-09] MEDS: ASPIRIN 81 MG CHEW PO SCH (07:35)
[2021-12-09] MEDS: ENOXAPARIN INJ 30 MG/0.3 ML SYR SQ SCH (07:35)
[2021-12-09 07:39] LABS: BUN Creatinine Ratio 20.5 (10-20); Calcium 9.1 mg/dl (8.5-10.1); Creatinine Clr Calc Pharmacy 55.9 ml/min; Est GFR (African American) 99.5 ml/min; Est GFR (Non-African American) 85.8 ml/min
[2021-12-09] MEDS ORDERED: SODIUM CHLORIDE 0.9% 1000ML 1,000 ML IV SCH ×2 (09:00→11:00)
[2021-12-09] MEDS ORDERED: MIDAZOLAM HCL 1 MG/ML 2ML VIAL ONE (09:55)
[2021-12-09 10:31] LABS: iSTAT Arterial Blood Gas HCO3 24 meg/L (19-24); iSTAT Arterial Blood Gas pCO2 40 mmHg (35-46); iSTAT Arterial Blood Gas pH 7.38 (7.35-7.45); iSTAT Arterial Blood Gas pO2 42 mmHg (80-95); iSTAT Carbon Dioxide 25 mmol/L (24-31)
--- NOTE | 2021-12-09 11:22 | Hospitalist Progress Note ---
Date of Service December 09, 2021 Assessment & Plan (1) Acute heart failure with preserved ejection fraction: Plan: 2/2 acute worsening of valvular disease. Per plan below. (2) Acute respiratory failure with hypoxia: Plan: 2/2 flash pulmonary edema 2/2 acute worsening of aortic insufficiency. Also with mitral regurgitation present which was chronic per cardiology. She is now extubated since 12/07 and breathing well on room air, looking very well considering. Do not see a need for additional Lasix at this time given her good oxygenation on room air and clear lungs to auscultation. Defer additional diuretic to cardiology. (3) Flash pulmonary edema: Plan: 2/2 above. Resolved after IV Lasix. Respiratory status has remained stable and lungs are clear to auscultation. (4) Mitral regurgitation: Plan: per Cardiology (5) Aortic insufficiency: Plan: acute worsening, may need cardiac surgery. Awaiting definitive thoughts from cardiology. (6) Troponin I above reference range: Plan: likely related to demand ischemia in setting of acute decompensation. No acute blockage today on heart cath. Occluded RCA with collaterals--cont GDMT (7) ASCVD (arteriosclerotic cardiovascular disease): Plan: Known h/o cardiac disease s/p stent in RCA December 2012 for high grade stenosis. Repeat coronary intervention May 2013 for in-stent restenosis. Last cath performed 2013 without intervention. Currently without anginal symptoms. Cont medical management including ASA 81, losartan, Lopressor and Crestor. (8) Chronic osteomyelitis of jaw: Plan: h/o this in 2018, underwent prolonged abx course. No current infection present. (9) DVT prophylaxis: Plan: Lovenox Full Dispo-cont PCU monitoring, defer to cardiology for disposition. [facility] Admission and Anticipated Discharge Date Admission Date: December 06, 2021 Subjective 60-year-old female presented to the hospital in respiratory distress 2/2 acute heart failure 2/2 acute valve insufficiency. Known h/o CAD with stent and in- stent restenosis in the past. She currently is denying SOB or chest pain s/p cath in left groin and doing well-lying flat per protocol 100% RCA occlusion with collaterals--no PCI on cath today still awaiting definitive cardiology thoughts. Review of Systems Review of Systems: All systems were reviewed and negative except as indicated above. Physical Exam Physical Exam: CONSTITUTIONAL: WNWD, vitals as above, generally well- appearing, NAD EYES: normal conjunctivae, no scleral icterus ENT: external ear and nose normal, MMM NECK: trachea midline RESPIRATORY: clear to auscultation bilaterally, no crackles, rales or wheezes, normal respiratory effort CARDIOVASCULAR: regular rate and rhythm, S1 and 2 heard without murmurs, gallops or rubs, no JVD, no peripheral edema CHEST: inspection of chest was normal GASTROINTESTINAL: soft, nontender, ND, no guarding MUSCULOSKELETAL: strength 5/5 throughout, head is normocephalic and atraumatic SKIN: warm and dry NEUROLOGIC: CN 2-12 grossly intact, no sensory deficit, normal cognition, normal speech, no tremor, no gross focal deficits. PSYCHIATRIC: alert cooperative and oriented to person, place and time. Results & Data Results & Data ([facility]) Vital Signs (Past 12 Hours) Vital Signs Temp Pulse Pulse Resp BP BP Pulse Ox 12/09/21 11:09 74 17 108/37 L 96 12/09/21 10:57 79 17 132/48 L 96 12/09/21 08:54 71 18 134/51 L 97 12/09/21 08:18 36.9 C 75 17 127/56 L 95 12/09/21 08:00 85 12/09/21 03:00 36.7 C 72 16 122/56 L 97 12/08/21 23:27 36.7 C 73 16 123/50 L 97 Laboratory Results [facility] 12/09/21 06:45 Sodium 141 Potassium 4.0 Chloride 107 Carbon Dioxide 25 BUN 15 Creatinine 0.73 Glucose 89 Calcium 9.1 Medications Administered Current Inpatient Medications Acetaminophen (Acetaminophen 325 Mg Tab) 650 mg PO Q4H PRN PRN Reason: pain/fever Stop: 01/06/22 17:16 Last Admin: 12/07/21 18:04 Dose: 650 mg Documented by: Amlodipine Besylate (Amlodipine Besylate 5 Mg Tab) 10 mg PO DAILY [facility] Stop: 01/07/22 08:59 Last Admin: 12/09/21 07:34 Dose: 10 mg Documented by: Aspirin (Aspirin 81 Mg Chew) 81 mg PO QAM [facility] Stop: 01/06/22 08:59 Last Admin: 12/09/21 07:35 Dose: 81 mg Documented by: Enoxaparin Sodium (Enoxaparin Inj 30 Mg/0.3 Ml Syr) 30 mg SQ QAM [facility] Stop: 01/07/22 08:59 Last Admin: 12/09/21 07:35 Dose: 30 mg Documented by: Fexofenadine HCl (Fexofenadine Hcl 180 Mg Tab) 180 mg PO DAILY [facility] Stop: 01/07/22 08:59 Last Admin: 12/09/21 07:32 Dose: Not Given Documented by: Fluticasone Propionate (Fluticasone Propionate Na Spr 16 Gm Btl) 2 sprays WILIAN DAILY [facility] Stop: 01/07/22 08:59 Last Admin: 12/09/21 07:32 Dose: Not Given Documented by: Sodium Chloride (Nss 1000ml) 1,000 mls @ 46.7 mls/hr IV .[id number] [facility] Stop: 01/08/22 08:59 Last Admin: 12/09/21 07:34 Dose: 46.7 mls/hr Documented by: Sodium Chloride (Nss 1000ml) 1,000 mls @ 50 mls/hr IV .Q20H [facility] Stop: 01/08/22 10:59 Losartan Potassium (Losartan Potassium 25 Mg Tab) 25 mg PO QAM [facility] Stop: 01/07/22 08:59 Last Admin: 12/09/21 07:34 Dose: 25 mg Documented by: Metoprolol Tartrate (Metoprolol Tartrate 50 Mg Tab) 50 mg PO BID [facility] Stop: 01/06/22 20:59 Last Admin: 12/09/21 07:34 Dose: 50 mg Documented by: Multivitamins (Multivitamin Tab) 1 tab PO DAILY [facility] Stop: 01/07/22 08:59 Last Admin: 12/09/21 07:32 Dose: Not Given Documented by: Multivitamins/Minerals (Calcium 600mg + Vit D 400 Iu Tab) 1 tab PO BID [facility] Stop: 01/06/22 20:59 Last Admin: 12/09/21 07:31 Dose: Not Given Documented by: Polyethylene Glycol (Polyethylene (Miralax) 17 Gm Pack) 17 gm PO DAILY PRN PRN Reason: Constipation Stop: 01/07/22 19:26 Rosuvastatin Calcium (Rosuvastatin Calcium 20 Mg Tab) 40 mg PO DAILY [facility] Stop: 01/06/22 08:59 Last Admin: 12/09/21 07:34 Dose: 40 mg Documented by: Senna/Docusate Sodium (Docusate Sodium/Senna 50/8.6mg Tab) 1 tab PO QAM [facility] Stop: 01/07/22 19:29 Last Admin: 12/09/21 07:31 Dose: Not Given Documented by: (1) Mitral regurgitation Cardiac valve disease etiology: etiology unspecified Qualified Code(s): I34.0 - Nonrheumatic mitral (valve) insufficiency
--- NOTE | 2021-12-09 11:37 | Cardiac Catheterization ---
Date of Service December 09, 2021 Cardiac Cath Report Cardiac Cath Report Procedure: 1. Coronary angiography 2. Left ventriculogram 3. Aortogram 4. Right heart catheterization History: This is a 66-year-old female with a previous history of mixed valvular disorder and coronary artery disease with a previous stent in the right coronary artery. She presented with flash pulmonary edema and was admitted to the hospital. She had an elevation in her cardiac troponins and was referred for cardiac catheterization. Procedure summary: After informed consent was obtained the patient was brought to the cardiac catheterization lab where access was obtained using a retrograde Salinger tech nique from the left femoral artery and vein. Preformed 5 Italian diagnostic catheters were utilized for the coronary angiograms. A 5 Italian pigtail catheter was utilized for the left ventriculogram and aortogram. A Bone Gap-Missy catheter was utilized for right heart pressures and cardiac outputs. Following the procedure the patient had the arterial and venous sheaths removed manually. Patient was a very thin woman which I felt the minx device should not be used to close the arterial site. Quick clot was utilized. ACC data: Start time 10:03 AM End time 10:35 AM Opening aortic pressure 122/50 Closing aortic pressure 125/59 Left ventricular pressure 127/4 Sedation 1 mg intravenous Versed IV fluid 40 cc normal saline Contrast 152 cc Visipaque Fluoroscopy time 10 minutes Radiation 316 mGy DAP 35.15 Acosta per centimeter squared Codominant system AUC score 9 Cardiac output by thermal dilution 4.8 L/min Cardiac index 3.32 L/min/m Oxygen saturation from the pulmonary artery 74% Right atrial pressure mean of 6 mmHg Pulmonary artery pressure 40/14 mmHg Right ventricular pressure 46/3 mmHg No gradient across aortic valve Coronary angiography: Injections into the left main trunk revealed to be smooth in appearance widely patent and within normal limits. The left circumflex artery is codominant to the right giving off several medium sized marginal branches. The left circumflex artery is smooth in appearance and widely patent. The LAD extends all the way around the apex of the heart the LAD gives off a large first diagonal branch. The LAD system is smooth appearance widely patent and within normal limits. Injections of the right coronary artery reveal it to be occluded with in-stent restenosis at the midportion of the artery. There are left to right collaterals to the distal right coronary artery. Left ventriculogram: The left ventricle is of normal size. There is hypokinesis of the inferior myocardium. The mitral valve is competent. Aortogram: Injections into the aorta reveal normal morphology of the aortic root and the ascending aorta. There is at least moderately severe to severe aortic insufficiency. Summary: The left coronary system is within normal limits. The previous stented site in the mid right coronary artery is occluded with in-stent restenosis. Left ventriculogram reveals hypokinesis of the inferior myocardium. There does not appear to be significant mitral regurgitation when injecting dye into the left ventricle. There is significant aortic insufficiency estimated to be moderately severe to severe when injecting dye into the proximal aorta. Recommendations: Medical management of the patient's coronary artery disease and consideration for surgical correction of the patient's aortic insufficiency.
[2021-12-10] MEDS: MULTIVITAMIN TAB PO SCH (08:24)
[2021-12-10] MEDS: ROSUVASTATIN CALCIUM 20 MG TAB PO SCH (08:24)
[2021-12-10] MEDS: METOPROLOL TARTRATE 50 MG TAB PO SCH (08:24)
[2021-12-10] MEDS: LOSARTAN POTASSIUM 25 MG TAB PO SCH (08:25)
[2021-12-10] MEDS: amLODIPine BESYLATE 5 MG TAB PO SCH (08:25)
[2021-12-10] MEDS: ENOXAPARIN INJ 30 MG/0.3 ML SYR SQ SCH (08:25)
[2021-12-10] MEDS: FEXOFENADINE HCL 180 MG TAB PO SCH (08:25)
[2021-12-10] MEDS: CALCIUM 600MG + VIT D 400 IU TAB PO SCH (08:25)
[2021-12-10] MEDS: FLUTICASONE PROPIONATE NA SPR 16 GM BTL NAE SCH (08:26)
--- NOTE | 2021-12-10 09:26 | Hospitalist Progress Note ---
Date of Service December 10, 2021 Assessment & Plan (1) Acute heart failure with preserved ejection fraction: Plan: 2/2 acute worsening of valvular disease. Per plan below. (2) Acute respiratory failure with hypoxia: Plan: 2/2 flash pulmonary edema 2/2 acute worsening of aortic insufficiency. Also with mitral regurgitation present which was chronic per cardiology. She is now extubated since 12/07 and breathing well on room air, looking very well considering. Do not see a need for additional Lasix at this time given her good oxygenation on room air and clear lungs to auscultation. Defer additional diuretic to cardiology. (3) Flash pulmonary edema: Plan: 2/2 above. Resolved after IV Lasix. Respiratory status has remained stable and lungs are clear to auscultation. (4) Mitral regurgitation: Plan: per Cardiology (5) Aortic insufficiency: Plan: acute worsening, may need cardiac surgery. Awaiting definitive thoughts from cardiology. (6) Troponin I above reference range: Plan: likely related to demand ischemia in setting of acute decompensation. No acute blockage today on heart cath. Occluded RCA with collaterals--cont GDMT (7) ASCVD (arteriosclerotic cardiovascular disease): Plan: Known h/o cardiac disease s/p stent in RCA December 2012 for high grade stenosis. Repeat coronary intervention May 2013 for in-stent restenosis. Last cath performed 2013 without intervention. Currently without anginal symptoms. Cont medical management including ASA 81, losartan, Lopressor and Crestor. (8) Chronic osteomyelitis of jaw: Plan: h/o this in 2018, underwent prolonged abx course. No current infection present. (9) DVT prophylaxis: Plan: Lovenox Full Dispo-cont PCU monitoring, defer to cardiology for disposition. DO [facility] Hospital[facility] Admission and Anticipated Discharge Date Admission Date: December 06, 2021 Subjective 60-year-old female presented to the hospital in respiratory distress 2/2 acute heart failure 2/2 acute valve insufficiency. Known h/o CAD with stent and in- stent restenosis in the past. She currently is denying SOB or chest pain s/p cath in left groin and doing well-lying flat per protocol 100% RCA occlusion with collaterals--no PCI on cath today still awaiting definitive cardiology thoughts. Physical Exam Physical Exam: CONSTITUTIONAL: WNWD, vitals as above, generally well- appearing, NAD EYES: normal conjunctivae, no scleral icterus ENT: external ear and nose normal, MMM NECK: trachea midline RESPIRATORY: clear to auscultation bilaterally, no crackles, rales or wheezes, normal respiratory effort CARDIOVASCULAR: regular rate and rhythm, S1 and 2 heard without murmurs, gallops or rubs, no JVD, no peripheral edema CHEST: inspection of chest was normal GASTROINTESTINAL: soft, nontender, ND, no guarding MUSCULOSKELETAL: strength 5/5 throughout, head is normocephalic and atraumatic SKIN: warm and dry NEUROLOGIC: CN 2-12 grossly intact, no sensory deficit, normal cognition, normal speech, no tremor, no gross focal deficits. PSYCHIATRIC: alert cooperative and oriented to person, place and time. Results & Data Results & Data ([facility]) Vital Signs (Past 12 Hours) Vital Signs Temp Pulse Pulse Resp BP Pulse Ox 12/10/21 08:04 36.5 C 67 19 116/56 L 99 12/10/21 07:00 65 12/10/21 03:36 36.8 C 79 16 116/55 L 97 12/09/21 23:44 36.7 C 70 16 110/52 L 98 12/09/21 22:28 78 Medications Administered Current Inpatient Medications Acetaminophen (Acetaminophen 325 Mg Tab) 650 mg PO Q4H PRN PRN Reason: pain/fever Stop: 01/06/22 17:16 Last Admin: 12/07/21 18:04 Dose: 650 mg Documented by: Amlodipine Besylate (Amlodipine Besylate 5 Mg Tab) 10 mg PO DAILY [facility] Stop: 01/07/22 08:59 Last Admin: 12/10/21 08:25 Dose: 10 mg Documented by: Aspirin (Aspirin 81 Mg Chew) 81 mg PO QAM [facility] Stop: 01/06/22 08:59 Last Admin: 12/09/21 07:35 Dose: 81 mg Documented by: Enoxaparin Sodium (Enoxaparin Inj 30 Mg/0.3 Ml Syr) 30 mg SQ QAM [facility] Stop: 01/07/22 08:59 Last Admin: 12/10/21 08:25 Dose: 30 mg Documented by: Fexofenadine HCl (Fexofenadine Hcl 180 Mg Tab) 180 mg PO DAILY [facility] Stop: 01/07/22 08:59 Last Admin: 12/10/21 08:25 Dose: 180 mg Documented by: Fluticasone Propionate (Fluticasone Propionate Na Spr 16 Gm Btl) 2 sprays WILIAN DAILY [facility] Stop: 01/07/22 08:59 Last Admin: 12/10/21 08:26 Dose: Not Given Documented by: Losartan Potassium (Losartan Potassium 25 Mg Tab) 25 mg PO QAM [facility] Stop: 01/07/22 08:59 Last Admin: 12/10/21 08:25 Dose: 25 mg Documented by: Metoprolol Tartrate (Metoprolol Tartrate 50 Mg Tab) 50 mg PO BID [facility] Stop: 01/06/22 20:59 Last Admin: 12/10/21 08:24 Dose: 50 mg Documented by: Multivitamins (Multivitamin Tab) 1 tab PO DAILY [facility] Stop: 01/07/22 08:59 Last Admin: 12/10/21 08:24 Dose: 1 tab Documented by: Multivitamins/Minerals (Calcium 600mg + Vit D 400 Iu Tab) 1 tab PO BID [facility] Stop: 01/06/22 20:59 Last Admin: 12/10/21 08:25 Dose: 1 tab Documented by: Polyethylene Glycol (Polyethylene (Miralax) 17 Gm Pack) 17 gm PO DAILY PRN PRN Reason: Constipation Stop: 01/07/22 19:26 Rosuvastatin Calcium (Rosuvastatin Calcium 20 Mg Tab) 40 mg PO DAILY [facility] Stop: 01/06/22 08:59 Last Admin: 12/10/21 08:24 Dose: 40 mg Documented by: Senna/Docusate Sodium (Docusate Sodium/Senna 50/8.6mg Tab) 1 tab PO QAM [facility] Stop: 01/07/22 19:29 Last Admin: 12/09/21 16:43 Dose: 1 tab Documented by: (1) Mitral regurgitation Cardiac valve disease etiology: etiology unspecified Qualified Code(s): I34.0 - Nonrheumatic mitral (valve) insufficiency
[2021-12-10] MEDS: DOCUSATE SODIUM/SENNA 50/8.6MG TAB PO SCH (10:08)
[2021-12-10] MEDS: ASPIRIN 81 MG CHEW PO SCH (10:09)
[2021-12-10 10:21] LABS: Hematocrit (blood only) 39.3 % (37-47); Hemoglobin 12.6 g/dL (12.0-16.0); Mean Corpuscular Hemoglobin 27.8 pg (25-34); Mean Corpuscular Hgb Conc 32.1 g/dL (32-36); Mean Corpuscular Volume 86.8 fL (80-100); Mean Platelet Volume 10.5 fL (7.4-10.4); Platelet Count 313 K/uL (130-400); RDW Coefficient of Variation 15.9 % (11.5-14.5); RDW Standard Deviation 50.7 fL (36.4-46.3); Red Blood Count 4.53 M/uL (4.2-5.4); White Blood Count 9.57 K/uL (4.8-10.8)
[2021-12-10 10:57] LABS: BUN Creatinine Ratio 18.8 (10-20); Creatinine Clr Calc Pharmacy 62.4 ml/min; Est GFR (African American) 107.8 ml/min; Potassium 4.2 mmol/L (3.5-5.1)
--- NOTE | 2021-12-10 11:09 | Cardiology Progress Note ---
Date of Service December 10, 2021 Assessment & Plan (1) Flash pulmonary edema: (2) Acute respiratory failure with hypoxia: (3) ASCVD (arteriosclerotic cardiovascular disease): (4) Troponin I above reference range: (5) Sinus tachycardia: (6) Aortic insufficiency: (7) Mitral regurgitation: (8) Systolic dysfunction: Plan: Furosemide 20 mg along with 10 mEq's of potassium chloride 2-3 days per week. Outpatient consideration for surgical correction of the significant aortic insufficiency. OK to discharge to home today if ambulatory in the hallway without difficulty. Activity restrictions discussed, to be maintained until further advised. Dental clearance from personal dentist. Outpatient bilateral carotid duplex at [facility] Cardiology follow-up with Mrs. Reza PA-C on 12/17/2021 at 3:[address] Surgery Consultation at [facility] Admission and Anticipated Discharge Date Admission Date: December 06, 2021 Supervising Physician Co-Signing Physician Notes Patient seen and examined with Eitan Reed PA-C. Agree with findings and assessment as above. Patient stable for discharge from a cardiac standpoint. Outpatient follow-up with cardiothoracic surgery and our cardiology team has been arranged. Subjective Patient seen and examined. Chart, medications, and telemetry reviewed. Presentation on 12/06/2021 with flash pulmonary edema requiring endotracheal intubation after not responding to noninvasive positive pressure ventilation, successfully extubated in the AM of 12/07/2021 December 09, [address] Diallo, via LEFT femoral artery and vein revealed widely patent left coronary system, mid RCA occlusion with in- stent restenosis and left to right collaterals to the distal RCA, hypokinesis of the inferior myocardium, competent mitral valve, at least moderately severe to severe aortic insufficiency. Review of Systems Review of Systems: Review of Systems: See HPI for pertinent positives. All other 10 point review of systems are negative. Physical Exam Physical Exam: General: Thin, age appropriate female. A&Ox3. NAD. HENT: Normocephalic. Atraumatic. Eyes: PER. Conjunctiva pink, sclera clear. Neck: Normal JVD. Transmitted systolic murmur. Heart: Regular at 66 bpm. Grade I=II/ systolic murmur. Grade II diastolic murmur. No rub. PMI is nondisplaced. Lungs: Diminished at the bases however clear to auscultation. Abdomen: +BS. Soft. Nontender. No masses or organomegaly. Extremities: No clubbing, cyanosis, or edema. Limited neurological examination is without focal deficits. Pulses: Posterior tibial=2/4. Results & Data ([facility]) Vital Signs (Past 12 Hours) Vital Signs Temp Pulse Pulse Resp BP Pulse Ox 12/10/21 08:04 36.5 C 67 19 116/56 L 99 12/10/21 07:00 65 12/10/21 03:36 36.8 C 79 16 116/55 L 97 12/09/21 23:44 36.7 C 70 16 110/52 L 98 Laboratory Results Laboratory Results - last 24 hr 12/10/21 12/10/21 09:49 09:49 WBC 9.57 RBC 4.53 Hgb 12.6 Hct 39.3 MCV 86.8 MCH 27.8 MCHC 32.1 RDW Std Deviation 50.7 H RDW Coeff of Stephanie 15.9 H Plt Count 313 MPV 10.5 H Sodium 138 Potassium 4.2 Chloride 105 Carbon Dioxide 26 Anion Gap 7 BUN 12 Creatinine 0.64 Est Cr Clr Drug Dosing 62.4 Est GFR ( Amer) 107.8 Est GFR (Non-Af Amer) 93.0 BUN/Creatinine Ratio 18.8 Glucose 139 H Calcium 9.0 (1) Mitral regurgitation Cardiac valve disease etiology: etiology unspecified Qualified Code(s): I34.0 - Nonrheumatic mitral (valve) insufficiency
--- NOTE | 2021-12-10 12:06 | Discharge Summary ---
Date of Service December 10, 2021 Admission HPI Per Admitting Provider This is a 66-year-old female with a past medical history for hyperlipidemia, seasonal allergic rhinitis, CAD, status post stent, hypertension, dysfunction of eustachian tube, [id number] aortic insufficiency and moderate mitral regurgitation in recent echo, who presents with shortness of breath and found to have flash pulmonary edema, respiratory failure, status post intubation in the ER. Currently, the patient is sedated with propofol. is in the room. As per the , she was doing fine, she even did gardening on the weekend, she was active. No complaints except she has occasional cough thought to be from dysfunction of the left eustachian tube, but she has no orthopnea or PND, no leg swelling, no chest pain, no nausea, no vomiting, no fevers, no diarrhea, or no other complaints. She went for yoga class today and as per the , she finished the class and she did not come home for 45 minutes, which is unusual for her, and he texted her, she did respond, and he went there and there was no car and he found her here in the hospital.As per the ER, the patient was very short of breath when she came in. She could not tolerate high oxygen and she was coughing frothy sputum when they decided to intubate her and she is currently status post intubation. Could not get any history from the patient. Admission Exam Per Admitting Provider GENERAL: The patient is thin and frail, currently status post intubation. VITAL SIGNS: Temperature 36.6, pulse 68, respiratory rate 16, blood pressure 113/55, oxygen 99% on mechanical ventilation. HEENT: Pupils pinpoint, sluggish to react. No obvious facial droop seen. NECK: No obvious JVD seen. CARDIOVASCULAR: S1 and S2 heard. Murmur in the mitral area heard. RESPIRATORY SYSTEM: Normal AP diameter. No accessory muscle use. Mild bibasilar crackles. No wheezing. ABDOMEN: Soft, bowel sounds present, nontender, no distention. CENTRAL NERVOUS SYSTEM: Currently status post intubation and sedated with propofol. EXTREMITIES: No edema, no erythema seen. Principal Diagnosis Flash pulmonary edema Acute respiratory failure with hypoxia Arteriosclerotic cardiovascular disease Troponin above reference range Sinus tachycardia Aortic insufficiency Mitral regurgitation Systolic dysfunction Discharge Exam CONSTITUTIONAL: WNWD, vitals as above, generally well-appearing, NAD EYES: normal conjunctivae, no scleral icterus ENT: external ear and nose normal, MMM NECK: trachea midline RESPIRATORY: clear to auscultation bilaterally, no crackles, rales or wheezes, normal respiratory effort CARDIOVASCULAR: regular rate and rhythm, S1 and 2 heard without murmurs, gallops or rubs, no JVD, no peripheral edema CHEST: inspection of chest was normal GASTROINTESTINAL: soft, nontender, ND, no guarding MUSCULOSKELETAL: strength 5/5 throughout, head is normocephalic and atraumatic SKIN: warm and dry NEUROLOGIC: CN 2-12 grossly intact, no sensory deficit, normal cognition, normal speech, no tremor, no gross focal deficits. PSYCHIATRIC: alert cooperative and oriented to person, place and time. Discharge Data Allergies Allergy/AdvReac Type Severity Reaction Status Date / Time eptifibatide Allergy Intermediate ITCHY RASH Verified 12/06/21 19:20 [From Integrilin] codeine AdvReac Intermediate NAUSEA/VOMI Verified 12/06/21 19:20 TING Consultations 12/06/21 20:48 ED Decision to Admit Stat 12/06/21 22:48 Consult Branding Machine Operator Routine 12/07/21 08:00 Consult Cardiology Routine 12/08/21 09:00 Consult Cardiac Catheterization Routine Procedures Performed Operation Date: 12/09/21 09:30 Actual Procedures s Cineradiography w/Routine Exam - Ha Diallo DO p Cath, Right and Left Heart - Ha Diallo DO s Aortogram, Thoracic - Ha Diallo DO Ordered Studies 12/06/21 19:10 CT angio chest PE protocol Stat 12/06/21 19:35 CT head/brain wo con Stat 12/09/21 06:33 CL Cath Imgs for PACS use only Routine 12/09/21 09:42 CL Cath Imgs for PACS use only Urgent Hospital Course (1) Acute heart failure with preserved ejection fraction: \ (2) Acute respiratory failure with hypoxia: (3) Flash pulmonary edema: (4) Mitral regurgitation: (5) Aortic insufficiency: (6) Troponin I above reference range: (7) ASCVD (arteriosclerotic cardiovascular disease): 60-year-old female presented to the hospital in respiratory distress by personal vehicle. Her oxygen level in the triage area was 70%. She was intubated in the ER and placed in the ICU overnight chest x-ray revealed pulmonary edema and intubation occurred after unsuccessful tolerance of BiPAP with him creased fatigue. White blood cell count was 15.7 on admission normal renal function, normal electrolytes. Normal INR. ABG revealed evidence of respiratory acidosis with a pH of 7.13, PCO2 of 47, bicarb of 21. Chest CT with contrast revealed no evidence of PE. Head CT revealed no acute intracranial event. She was admitted to the ICU for continued management of acute respiratory failure with hypoxia secondary to flash pulmonary edema requiring emergent endotracheal intubation. This was felt secondary to acute heart failure in the setting of known valvular insufficiencies. Cardiology has been consulted. Echocardiogram was performed revealing an ejection fraction of 45 to 50% with normal right ventricular systolic function and moderate to severe mitral regurgitation. Previous transesophageal echocardiogram on 12/01/2021 reveals an ejection fraction for 55 to 60% with aortic insufficiency. Per cardiology, given her history of mixed valvular disease as well as coronary artery disease with prior coronary intervention, the recommendation was to proceed with a right and left heart catheterization. This was performed via left groin approach on 12/09. The left coronary system was within normal limits. The previous stented site in the mid right coronary artery was occluded with in-stent restenosis. Left ventriculogram revealed hypokinesis of the inferior myocardium. There did not appear to be significant mitral regurgitation when injecting dye into the left ventricle. There is significant aortic insufficiency estimated to be moderately severe to severe when injecting dye into the proximal aorta. Medical management of the patient's coronary artery disease and consideration for surgical correction of the patient's aortic insufficiency was recommended. She was discharged in stable condition on 12/10 after education on wound management, activity restrictions and follow-up. Close primary care and cardiology follow-up recommended in the next 1-2 weeks. Notably she was not sent home on diuretics. She had received intravenous diuretics initially on admission, but there was a brisk response and complete resolution of hypoxia by HD2. Total Time Total Time Spent Total Time Spent (In Minutes): 60 Discharge Plan Discharge Items Patient Disposition: Home - Self-Care Reason For Visit: SOB Discharge Diagnosis: Flash pulmonary edema Acute respiratory failure with hypoxia Arteriosclerotic cardiovascular disease Troponin above reference range Sinus tachycardia Aortic insufficiency Mitral regurgitation Systolic dysfunction Condition on Discharge: Good Activity: Resume your previous activity Non-emergency contact: Primary Care Provider Call non-emergency contact if: you have any medication questions, your symptoms worsen, your wound has increased redness, your wound has increased drainage and your wound pain has increased Follow-up/Referrals: Talisha Abdi MD [Primary Care Provider] - (Date & Time 12/16/2021 2:00 PM Provider Talisha Abdi MD Department Family Practice [facility] ) Janeen Cobb PA-C [Physician Strip Catcher] - (Date & Time 12/17/2021 3:00 PM Provider Janeen Cobb PA-C Department Cardiology, [facility] ) Diet: Heart Healthy Add Attending Provider Instructions: ACTIVITY RECOMMENDATIONS: It is common to feel weak and fatigue for a few days. * Do not drive or operate any motorized equipment for the next three days. * Limit stair usage (2 or 3 trips a day only) for the next three days. * Do not lift anything heavier than 10 pounds for the next three days. * Do not engage in vigorous exercise or any sports for the next five days. * You may shower the day after your procedure, but do not immerse the area for three days. Cleanse the site gently with soap and water. SPECIAL CARE INSTRUCTIONS: * You may replace the pressure dressing or band-aid the morning after the procedure. * After your procedure, it is normal to have a small bruise or small lump at the site. Examine your site daily for any change in the bruise or lump, redness, swelling, drainage or numbness. Notify your doctor if any change. BLEEDING: * If there is a small amount of bleeding at the site, lie down and apply firm pressure with a clean cloth for ten minutes. When the bleeding stops, lie quietly keeping the procedure limb straight for six hours. Notify your doctor as soon as possible. * If the bleeding does not stop after ten minutes or if there is a large amount of bleeding or spurting, call 911 immediately. Continue to lie down and hold firm pressure until help arrives. SKIN IRRITATION: * You may experience some redness and/or swelling in the area where radiation was administered. If any skin irritation occurs, please contact your family physician. FOLLOW UP VISIT: Keep any scheduled doctor appointments. Addtl Production Director Provider Instructions: Call 911 and go to the Emergency Room if: * You have tightness or pain in your chest that does not go away with rest or Nitroglycerin * You are very short of breath even with rest Call your doctor if any of the following symptoms or problems start or get worse: * Shortness of breath or difficulty breathing * Wake up at night short of breath * Chest pain * Cough * Swelling of your hands, fee, or legs * More fatigued or tired with your normal activity * Palpitations - sudden fast heart beats WEIGHT * Weigh yourself every morning after using the bathroom. * Use the same scale. * Wear the same amount of clothing. * Write your weight down on your chart. * Call your doctor if you gain more than 2-3 pounds in 1-2 days. MEDICATIONS * Use this discharge instruction sheet for instructions. * Take your medications at the time your doctor ordered. * Do not skip a dose of your medicines. * If you miss a dose of medicine, take as soon as possible, but DO NOT DOUBLE A DOSE. * Read your medicine information when you get home. * Know all of the side effects of your medicine. * Call your doctor's office if you have any side effects. * Be sure all of your doctors know what medicine and herbs you take (including cold, flu, and herbal medicine). * Pain Medicine: If you do not get relief from your pain, please call your doctor for help. Take the following with you to your follow-up doctor appointments: * Weight Chart * Medication List * List of questions Do not drink excessive alcohol, beer or wine. Pending Studies at Discharge: No Stand-Alone Forms: My [facility] Medications and DC Order Prescriptions: Continued aspirin 81 mg tablet,delayed release (DR/EC) 81 mg PO QAM RF: 0 metoprolol tartrate [Lopressor] 50 mg tablet 50 mg PO BID RF: 0 amlodipine 10 mg tablet 10 mg PO DAILY RF: 0 losartan 25 mg Tablet 25 mg PO QAM RF: 0 fexofenadine 180 mg Tablet 180 mg PO DAILY RF: 0 fluticasone propionate [Flonase Allergy Relief] 50 mcg/actuation [place],Suspension 2 spray INTRANASAL DAILY RF: 0 Saline Nasal 0.65 % Aerosol,[place] 1 spray INTRANASAL DIRECTED PRN (Reason: Congestion) RF: 0 rosuvastatin 40 mg tablet 40 mg PO DAILY RF: 0 calcium citrate-vitamin D3 250 mg-5 mcg (200 unit) Tablet 1 tab PO BID RF: 0 Women's One Daily 18 mg iron-400 mcg-500 mg Ca Tablet 1 tab PO DAILY RF: 0 Discharge Orders: Discharge Order (Routine); Ordered 12/10/21 Ordered By: Aleja Garcia/Other Patient Handouts: Heart Failure Make Changes Diet, Cardiac Catheterization Dc Admission Data Admit Date/Time: 12/06/21 21:51 Attending Provider: Aleja Reagan Admit Provider: Srinivas Siddiqi Primary Care Provider: Talisha Abdi Other Providers: Srinivas Siddiqi ; Owen Aviles ; Maciej Farris ; Messi Norton ; Darrian Morales ; Winston Weeks ; Ha Diallo ; Eitan Reed ; Janeen Cobb ; Juli Espana ; Ethel Aguillon ; Fritz Solano Other Interventions: Discharge Summary Assessment (RN) Last Done: 12/10/21 12:22
== END 2021-12-10 14:28 | disposition home or self-care (01) | DRG 208 ==
LOC: ED 19:05 → SUATTDRO 21:51 → 1E 21:51 → 2S 12-07 16:52
PROC: CLB.ATH (2021-12-09 09:30)

== ENCOUNTER 2022-01-11 13:10 | Inpatient (IN) ==
[2022-01-11] MEDS ORDERED: dilTIAZem HCl 5 MG/ML 5 ML VIAL IV STA (13:41)
[2022-01-11] MEDS ORDERED: STAT IV Infusion **Titration per Protocol STA ×2 (13:41→16:27)
--- NOTE | 2022-01-11 13:41 | Emergency Department Note ---
Impression & Plan Atrial flutter ADMIT ED Provider Note HPI: The patient is a 66-year-old female with history of coronary artery disease, status post CABG on 12/28 x 1, also status post aortic valve replacement on the same date, presents the emergency department with tachycardia from the outpatient office. Patient states that around 11 AM she developed a sensation of tachycardia when she was brushing her teeth. Patient was seen in the outpatient clinic by Dr. Diallo from [facility] cardiology and noted to be tachycardic and was referred to the ED for further evaluation. On arrival the patient is in no acute distress, she is noted to have a heart rate of 164 which is relatively consistent at that rate, EKG shows likely atrial flutter. Patient is saturating well on room air on arrival, blood pressure stable. Patient denies any chest pain. ROS: -Cardio: Palpitations/tachycardia *10 point review systems was conducted and is otherwise negative unless stated above *Outpatient medications and allergy history reviewed PE: General: Alert, NAD HEENT: Normocephalic, atraumatic Eyes: Extraocular eye movement is intact, no scleral erythema Pulmonary: Clear to auscultation bilaterally, no wheezing Cardio: Tachycardic rate with regular rhythm GI: Abdomen is soft, nontender : No suprapubic tenderness MSK: No evidence of trauma or malformation of the extremities, no edema Skin: No evidence of rash Neuro: Alert, no focal deficits Psychiatric: Cooperative computer artist: - An order was placed for continuous cardiac monitoring - Patient was noted to be in narrow complex rhythm with rate of 164 EKG #1 Rate: 169 Rhythm: Atrial flutter with 2-1 AV conduction Intervals: Within normal limits, [place] undetectable ST changes: No ST elevation Time: 1329 EKG #2 Rate: 100 Rhythm: Atrial fibrillation Intervals: Within normal limits ST changes: No ST elevation Time: 1357 Medical Decision Making: Patient presented to the emergency department with sensation of palpitations, noted to have what appears to be atrial flutter in the outpatient setting by [facility] cardiology, referred to the ED for further management. On arrival and on my initial assessment the patient is resting comfortably in bed, noted to be tachycardic on the monitor with a narrow complex tachycardia consistent with atrial flutter, IV was established, lab work obtained, I discussed the case shortly after the patient's presentation with on-call cardiology for Dr. Rosamaria Monterose, was determined patient should be initiated on diltiazem bolus and drip as well as heparin bolus and drip, shortly after the patient received her diltiazem bolus her rate did respond to within normal limits in the 90s, repeat EKG shows atrial fibrillation which is new for the patient. Lab work was obtained that shows no evidence of any critical electrolyte abnormalities, high-sensitivity troponin levels within normal limits, patient does have a mild leukocytosis considered to be reactive at this point without any obvious source, chest x-ray does not show any evidence of any pneumonia or other acute pathology. Urinalysis shows no evidence of infection, COVID testing is negative. Case was discussed with the on-call hospitalist service for [facility], patient was admitted in stable condition for further management of new onset atrial fibrillation, atrial flutter now with rate contr olled. Patient was in agreement to the above plan she was admitted in stable condition. * CRITICAL CARE TIME: ( 45 ) minutes -Interpretation of diagnostic studies including EKG, time spent at the bedside, management of acute tachyarrhythmia requiring IV medications for rate control, discussion with subspecialty services/cardiology, arrangement of admission Diagnosis: 1. Atrial flutter 2. Palpitations, acute 3. New onset atrial fibrillation Disposition: Admission Eitan Oakley DO Emergency Medicine Past Med/Surg History Medical History Aortic regurgitation Severe per 10/25/21 echo CAD (coronary artery disease) Single-vessel atherosclerotic coronary disease, status post drug-eluting stent to the mid right coronary artery for high-grade mid vessel stenosis, December of 2012. Repeat coronary intervention, May 2013, for in-stent restenosis. Follow up cardiac catheterization for symptoms since August 2013, dem onstrating 50% distal narrowing of the right coronary artery but no high- grade obstruction. Cardiac cath in November 2021 with in stent restenosis of the RCA, occluded Hyperlipidemia Hypertension Surgical History History of aortic valve replacement with bioprosthetic valve History of cardiac cath MICHELA to mid RCA (12/2012), "repeat coronary intervention" (05/2013) for in- stent restenosis, (2014) > "50% distal narrowing of the RCA but no high-grade obstruction" per cardiology records S/P CABG x 1 Family History Father Cancer Social History Smoking Status: Former smoker Second Hand Exposure: No; Hx Alcohol Use: Yes Alcohol type: wine Hx Substance Use: No Preferred Language: Korean Communication Ability: Effective 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 Beliefs That Will Affect Care: Yazdanism marital status: Current Living Situation: Spouse Feels Safe at Home: Yes Assistive Devices: None Allergies Allergies Allergy/AdvReac Type Severity Reaction Status Date / Time eptifibatide Allergy Intermediate ITCHY RASH Verified 01/11/22 14:59 [From Integrilin] codeine AdvReac Intermediate NAUSEA/VOMI Verified 01/11/22 14:59 TING Home Meds Home Medications Medication Instructions Recorded Confirmed aspirin 81 mg tablet,delayed 81 mg PO QAM 06/04/19 01/11/22 release fexofenadine 180 mg tablet 180 mg PO DAILY PRN 11/30/21 01/11/22 calcium citrate 250 mg 1 tab PO QDL 12/06/21 01/11/22 calcium-vitamin D3 5 mcg (200 unit) tablet multivit-iron 18 mg-folic acid 400 1 tab PO QDL 12/06/21 01/11/22 mcg-calcium 500 mg-minerals tablet (Women's One Daily) rosuvastatin 40 mg tablet 40 mg PO QAM 12/06/21 01/11/22 sodium chloride 0.65 % nasal spray 1 spray INTRANASAL DIRECTED PRN 12/06/21 01/11/22 aerosol (Saline Nasal) famotidine 20 mg tablet 20 mg PO QAM 01/11/22 01/11/22 furosemide 40 mg tablet 40 mg PO QAM 01/11/22 01/11/22 metoprolol tartrate 25 mg tablet 25 mg PO BID 01/11/22 01/11/22 oxycodone 5 mg tablet 5 mg PO Q4H PRN 01/11/22 01/11/22 potassium chloride 10 mEq 10 meq PO QAM 01/11/22 01/11/22 tablet,extended release Results & Data (ED) Vital Signs Vital Signs - 24 hr 01/11/22 13:18 01/11/22 13:30 01/11/22 13:31 Temperature 37.1 C Temperature Source Temporal Artery Scan Pulse Rate 175 H 169 H 166 H Pulse Rate [Right Finger] Pulse Rate from SpO2 Sensor Pulse Strength [Right Finger] Respiratory Rate 16 16 17 Respiratory Effort / Characteristics Non-Labored Respiratory Depth Normal Respiratory Pattern Blood Pressure 122/82 158/118 H Blood Pressure [Right Arm] Blood Pressure Mean 95 131 Blood Pressure Mean [Right Arm] Blood Pressure Position [Right Arm] Pulse Oximetry 96 Oxygen Delivery Method Room Air Sepsis Recent Fever Within 48 Hours No Sepsis New/Unexplained Change in Mental Status No Sepsis Action Taken by Nursing No Action Required 01/11/22 13:35 01/11/22 13:39 01/11/22 13:40 Temperature Temperature Source Pulse Rate 163 H 162 H 162 H Pulse Rate [Right Finger] Pulse Rate from SpO2 Sensor 162 H 162 H Pulse Strength [Right Finger] Respiratory Rate 6 L 20 22 Respiratory Effort / Characteristics Respiratory Depth Respiratory Pattern Blood Pressure 149/115 H 133/102 H 149/104 H Blood Pressure [Right Arm] Blood Pressure Mean 126 112 119 Blood Pressure Mean [Right Arm] Blood Pressure Position [Right Arm] Pulse Oximetry 99 99 Oxygen Delivery Method Room Air Sepsis Recent Fever Within 48 Hours Sepsis New/Unexplained Change in Mental Status Sepsis Action Taken by Nursing 01/11/22 13:45 01/11/22 13:50 01/11/22 13:55 Temperature Temperature Source Pulse Rate 163 H 157 H 91 H Pulse Rate [Right Finger] Pulse Rate from SpO2 Sensor 164 H 171 H 82 Pulse Strength [Right Finger] Respiratory Rate 14 20 19 Respiratory Effort / Characteristics Respiratory Depth Respiratory Pattern Blood Pressure 164/109 H 139/88 123/75 Blood Pressure [Right Arm] Blood Pressure Mean 127 105 91 Blood Pressure Mean [Right Arm] Blood Pressure Position [Right Arm] Pulse Oximetry 100 94 91 Oxygen Delivery Method Sepsis Recent Fever Within 48 Hours Sepsis New/Unexplained Change in Mental Status Sepsis Action Taken by Nursing 01/11/22 15:25 01/11/22 15:30 01/11/22 15:35 Temperature Temperature Source Pulse Rate 88 87 84 Pulse Rate [Right Finger] Pulse Rate from SpO2 Sensor 89 87 85 Pulse Strength [Right Finger] Respiratory Rate 16 16 15 Respiratory Effort / Characteristics Respiratory Depth Respiratory Pattern Blood Pressure 112/73 112/77 119/74 Blood Pressure [Right Arm] Blood Pressure Mean 86 88 89 Blood Pressure Mean [Right Arm] Blood Pressure Position [Right Arm] Pulse Oximetry 99 99 98 Oxygen Delivery Method Sepsis Recent Fever Within 48 Hours Sepsis New/Unexplained Change in Mental Status Sepsis Action Taken by Nursing 01/11/22 15:40 01/11/22 15:45 01/11/22 15:50 Temperature Temperature Source Pulse Rate 98 H 92 H 89 Pulse Rate [Right Finger] Pulse Rate from SpO2 Sensor 99 H 92 H 90 Pulse Strength [Right Finger] Respiratory Rate 26 H 18 18 Respiratory Effort / Characteristics Respiratory Depth Respiratory Pattern Blood Pressure 149/94 H 144/94 H 144/88 H Blood Pressure [Right Arm] Blood Pressure Mean 112 110 106 Blood Pressure Mean [Right Arm] Blood Pressure Position [Right Arm] Pulse Oximetry 99 100 99 Oxygen Delivery Method Sepsis Recent Fever Within 48 Hours Sepsis New/Unexplained Change in Mental Status Sepsis Action Taken by Nursing 01/11/22 15:55 01/11/22 16:00 01/11/22 16:05 Temperature Temperature Source Pulse Rate 91 H 95 H 91 H Pulse Rate [Right Finger] Pulse Rate from SpO2 Sensor 90 95 H 92 H Pulse Strength [Right Finger] Respiratory Rate 21 21 8 L Respiratory Effort / Characteristics Respiratory Depth Respiratory Pattern Blood Pressure 139/86 135/101 H 143/94 H Blood Pressure [Right Arm] Blood Pressure Mean 103 112 110 Blood Pressure Mean [Right Arm] Blood Pressure Position [Right Arm] Pulse Oximetry 96 100 100 Oxygen Delivery Method Sepsis Recent Fever Within 48 Hours Sepsis New/Unexplained Change in Mental Status Sepsis Action Taken by Nursing 01/11/22 16:10 01/11/22 16:15 01/11/22 16:17 Temperature Temperature Source Pulse Rate 84 96 H Pulse Rate [Right Finger] 93 H Pulse Rate from SpO2 Sensor 85 95 H Pulse Strength [Right Finger] Normal Respiratory Rate 18 24 18 Respiratory Effort / Characteristics Non-Labored Spontaneous Respiratory Depth Normal Respiratory Pattern Regular Blood Pressure 128/84 154/90 H Blood Pressure [Right Arm] 154/90 H Blood Pressure Mean 98 111 Blood Pressure Mean [Right Arm] 111 Blood Pressure Position [Right Arm] Lying Pulse Oximetry 99 97 94 Oxygen Delivery Method Room Air Sepsis Recent Fever Within 48 Hours Sepsis New/Unexplained Change in Mental Status Sepsis Action Taken by Nursing 01/11/22 16:20 01/11/22 16:25 01/11/22 16:30 Temperature Temperature Source Pulse Rate 84 86 84 Pulse Rate [Right Finger] Pulse Rate from SpO2 Sensor 88 86 84 Pulse Strength [Right Finger] Respiratory Rate 13 16 15 Respiratory Effort / Characteristics Respiratory Depth Respiratory Pattern Blood Pressure 148/85 H 132/83 126/81 Blood Pressure [Right Arm] Blood Pressure Mean 106 99 96 Blood Pressure Mean [Right Arm] Blood Pressure Position [Right Arm] Pulse Oximetry 94 100 100 Oxygen Delivery Method Sepsis Recent Fever Within 48 Hours Sepsis New/Unexplained Change in Mental Status Sepsis Action Taken by Nursing 01/11/22 16:35 01/11/22 16:40 01/11/22 16:45 Temperature Temperature Source Pulse Rate 85 83 84 Pulse Rate [Right Finger] Pulse Rate from SpO2 Sensor 85 83 84 Pulse Strength [Right Finger] Respiratory Rate 17 15 15 Respiratory Effort / Characteristics Respiratory Depth Respiratory Pattern Blood Pressure 134/80 127/79 125/79 Blood Pressure [Right Arm] Blood Pressure Mean 98 95 94 Blood Pressure Mean [Right Arm] Blood Pressure Position [Right Arm] Pulse Oximetry 98 100 100 Oxygen Delivery Method Sepsis Recent Fever Within 48 Hours Sepsis New/Unexplained Change in Mental Status Sepsis Action Taken by Nursing 01/11/22 16:50 01/11/22 16:55 01/11/22 17:00 Temperature Temperature Source Pulse Rate 87 85 87 Pulse Rate [Right Finger] Pulse Rate from SpO2 Sensor 87 85 87 Pulse Strength [Right Finger] Respiratory Rate 15 16 15 Respiratory Effort / Characteristics Respiratory Depth Respiratory Pattern Blood Pressure 129/82 128/81 123/80 Blood Pressure [Right Arm] Blood Pressure Mean 97 96 94 Blood Pressure Mean [Right Arm] Blood Pressure Position [Right Arm] Pulse Oximetry 100 100 100 Oxygen Delivery Method Sepsis Recent Fever Within 48 Hours Sepsis New/Unexplained Change in Mental Status Sepsis Action Taken by Nursing 01/11/22 17:05 01/11/22 17:10 01/11/22 17:15 Temperature Temperature Source Pulse Rate 81 88 84 Pulse Rate [Right Finger] Pulse Rate from SpO2 Sensor 81 87 85 Pulse Strength [Right Finger] Respiratory Rate 15 23 13 Respiratory Effort / Characteristics Respiratory Depth Respiratory Pattern Blood Pressure 126/77 122/76 125/77 Blood Pressure [Right Arm] Blood Pressure Mean 93 91 93 Blood Pressure Mean [Right Arm] Blood Pressure Position [Right Arm] Pulse Oximetry 100 100 100 Oxygen Delivery Method Sepsis Recent Fever Within 48 Hours Sepsis New/Unexplained Change in Mental Status Sepsis Action Taken by Nursing 01/11/22 17:32 01/11/22 17:36 01/11/22 17:45 Temperature Temperature Source Pulse Rate 83 83 Pulse Rate [Right Finger] 84 Pulse Rate from SpO2 Sensor 83 Pulse Strength [Right Finger] Respiratory Rate 18 17 Respiratory Effort / Characteristics Respiratory Depth Respiratory Pattern Blood Pressure 140/84 Blood Pressure [Right Arm] 140/84 Blood Pressure Mean 102 Blood Pressure Mean [Right Arm] 102 Blood Pressure Position [Right Arm] Pulse Oximetry 99 Oxygen Delivery Method Sepsis Recent Fever Within 48 Hours Sepsis New/Unexplained Change in Mental Status Sepsis Action Taken by Nursing Laboratory Data Result diagrams: 01/11/22 13:28 01/11/22 13:28 Lab Results 01/11/22 01/11/22 01/11/22 Range/Units 13:28 13:28 13:28 WBC 13.04 H (4.8-10.8) K/uL RBC 4.19 L (4.2-5.4) M/uL Hgb 12.0 (12.0-16.0) g/dL Hct 38.9 (37-47) % MCV 92.8 (80-100) fL MCH 28.6 (25-34) pg MCHC 30.8 L (32-36) g/dL RDW Std Deviation 59.9 H (36.4-46.3) fL RDW Coeff of Stephanie 17.7 H (11.5-14.5) % Plt Count 691 H (130-400) K/uL MPV 9.4 (7.4-10.4) fL Immature Gran % (Auto) 0.6 % Neut % (Auto) 77.7 % Lymph % (Auto) 10.7 % [place] % (Auto) 9.0 % Eos % (Auto) 1.8 % Baso % (Auto) 0.2 % Neut # (Auto) 10.13 H (1.4-6.5) K/uL Lymph # (Auto) 1.39 (1.2-3.4) K/uL [place] # (Auto) 1.18 H (0.11-0.59) K/uL Eos # (Auto) 0.23 (0-0.5) K/uL Baso # (Auto) 0.03 (0-0.2) K/uL Immature Gran # (Auto) 0.08 H (0.00-0.02) K/uL PT 11.0 (9.0-12.0) Seconds INR 1.0 (0.9-1.1) APTT 30.4 (21.0-31.0) Seconds PTT Ratio 1.1 Sodium 139 (136-145) mmol/L Potassium 4.2 (3.5-5.1) mmol/L Chloride 101 (98-107) mmol/L Carbon Dioxide 28 (21-32) mmol/L Anion Gap 10 (3-11) BUN 14 (6-23) mg/dl Creatinine 0.66 (0.6-1.2) mg/dl Est Cr Clr Drug Dosing 57.0 ml/min Est GFR ( Amer) 106.7 ml/min Est GFR (Non-Af Amer) 92.1 ml/min BUN/Creatinine Ratio 21.2 H (10-20) Glucose 125 H (70-99(Fasting)) mg/dl Calcium 9.7 (8.5-10.1) mg/dl Total Bilirubin 0.6 (0.2-1.0) mg/dl AST 24 (13-39) U/L ALT 21 (7-52) U/L Alkaline Phosphatase 117 H (34-104) U/L Troponin I High Sens 43.3 H D (0-14) pg/ml Total Protein 8.1 (6.0-8.3) gm/dl Albumin 4.2 (3.4-5.0) gm/dl Globulin 3.9 (2.5-4.0) gm/dl Albumin/Globulin Ratio 1.1 (0.9-2) Urine Color Urine Appearance (Clear) Urine pH (4.5-7.5) Ur Specific [place] (1.000-1.030) Urine Protein (Negative) Urine Glucose (UA) (Negative) Urine Ketones (Negative) Urine Blood (Negative) Urine Nitrite (Negative) Urine Bilirubin (Negative) Urine Urobilinogen (Negative) Ur Leukocyte Esterase (Negative) SARS-CoV-2, RNA, NAAT (NEGATIVE) 01/11/22 01/11/22 Range/Units 14:05 15:03 WBC (4.8-10.8) K/uL RBC (4.2-5.4) M/uL Hgb (12.0-16.0) g/dL Hct (37-47) % MCV (80-100) fL MCH (25-34) pg MCHC (32-36) g/dL RDW Std Deviation (36.4-46.3) fL RDW Coeff of Stephanie (11.5-14.5) % Plt Count (130-400) K/uL MPV (7.4-10.4) fL Immature Gran % (Auto) % Neut % (Auto) % Lymph % (Auto) % [place] % (Auto) % Eos % (Auto) % Baso % (Auto) % Neut # (Auto) (1.4-6.5) K/uL Lymph # (Auto) (1.2-3.4) K/uL [place] # (Auto) (0.11-0.59) K/uL Eos # (Auto) (0-0.5) K/uL Baso # (Auto) (0-0.2) K/uL Immature Gran # (Auto) (0.00-0.02) K/uL PT (9.0-12.0) Seconds INR (0.9-1.1) APTT (21.0-31.0) Seconds PTT Ratio Sodium (136-145) mmol/L Potassium (3.5-5.1) mmol/L Chloride (98-107) mmol/L Carbon Dioxide (21-32) mmol/L Anion Gap (3-11) BUN (6-23) mg/dl Creatinine (0.6-1.2) mg/dl Est Cr Clr Drug Dosing ml/min Est GFR ( Amer) ml/min Est GFR (Non-Af Amer) ml/min BUN/Creatinine Ratio (10-20) Glucose (70-99(Fasting)) mg/dl Calcium (8.5-10.1) mg/dl Total Bilirubin (0.2-1.0) mg/dl AST (13-39) U/L ALT (7-52) U/L Alkaline Phosphatase (34-104) U/L Troponin I High Sens (0-14) pg/ml Total Protein (6.0-8.3) gm/dl Albumin (3.4-5.0) gm/dl Globulin (2.5-4.0) gm/dl Albumin/Globulin Ratio (0.9-2) Urine Color Yellow Urine Appearance Clear (Clear) Urine pH 7.5 (4.5-7.5) Ur Specific [place] 1.006 (1.000-1.030) Urine Protein Negative (Negative) Urine Glucose (UA) Negative (Negative) Urine Ketones Negative (Negative) Urine Blood Negative (Negative) Urine Nitrite Negative (Negative) Urine Bilirubin Negative (Negative) Urine Urobilinogen Negative (Negative) Ur Leukocyte Esterase Negative (Negative) SARS-CoV-2, RNA, NAAT NEGATIVE (NEGATIVE) Administered Medications Diltiazem HCl 125 mg/ Dextrose 125 mls @ 5 mls/hr IV .Q24H CARLOS; Protocol Stop: 02/10/22 13:44 Last Admin: 01/11/22 17:41 Dose: Not Given Documented by: [id number] Heparin Sodium/Dextrose (Heparin Sodium/Dextrose) 25,000 units in 500 mls @ 16 mls/hr IV .Q24H [facility]; Protocol Stop: 02/10/22 13:59 Last Admin: 01/11/22 13:52 Dose: 800 units/hr, 16 mls/hr Documented by: [id number] Cosigned by: [id number] Amiodarone HCl/Dextrose (Nexterone / D5w) 360 mg in 200 mls @ 33.333 mls/hr IV ONE ONE Stop: 01/11/22 22:36 Last Admin: 01/11/22 17:56 Dose: 33.3 mls/hr Documented by: [id number] Cosigned by: [id number] Discontinued Medications Diltiazem HCl (Diltiazem Hcl 5 Mg/Ml 5 Ml Vial) 10 mg IV NOW STA Stop: 01/11/22 13:42 Last Admin: 01/11/22 13:49 Dose: 10 mg Documented by: [id number] Cosigned by: [id number] Heparin Sodium (Porcine) (Heparin Sod (Porcine) 1000 Unit/Ml) 3,000 units IV NOW ONE Stop: 01/11/22 13:58 Last Admin: 01/11/22 13:52 Dose: 3,000 units Documented by: [id number] Cosigned by: [id number] Heparin Sodium/Dextrose (Heparin Iv Adult Wt-Based Standard With Bolus Protocol) 1 ea IV NOW STA; Protocol Stop: 01/11/22 13:43 Last Admin: 01/11/22 17:40 Dose: Not Given Documented by: [id number] Amiodarone HCl/Dextrose (Nexterone / D5w) 150 mg in 100 mls @ 600 mls/hr IV NOW STA Stop: 01/11/22 16:36 Last Admin: 01/11/22 17:36 Dose: 600 mls/hr Documented by: [id number] Cosigned by: [id number] Miscellaneous (Stat Iv Infusion Titration Per Protocol) 1 ea N/A NOW STA Stop: 01/11/22 13:42 Last Admin: 01/11/22 17:40 Dose: Not Given Documented by: [id number] Imaging Data Radiologist's Impression: Chest X-Ray 01/11/22 13:32 XR chest 1V portable CLINICAL HISTORY: Atypical chest pain. COMPARISON STUDY: Chest CT December 06, 2021. Chest radiograph December 26, 2021. FINDINGS: Interval median sternotomy is noted. Pleural effusions and pulmonary edema have resolved since prior exam. There is no pneumothorax. No consolidation to suggest pneumonia. IMPRESSION: No acute cardiopulmonary findings. Interval median sternotomy. ACT 112: Negative or not required by law. Electronically signed by: Moreno Nazario M.D. 01/11/2022 1:53 PM Discharge Plan Visit Data Chief Complaint: Tachycardia Stated Complaint: TACHYCARDIA ED Provider: Eitan Oakley Discharge Problem: Atrial flutter Forms Stand Alone Forms: [facility] Prescriptions Prescriptions: No Action aspirin 81 mg tablet,delayed release (DR/EC) 81 mg PO QAM RF: 0 fexofenadine 180 mg Tablet 180 mg PO DAILY PRN (Reason: Congestion) RF: 0 Saline Nasal 0.65 % Aerosol,[place] 1 spray INTRANASAL DIRECTED PRN (Reason: Congestion) RF: 0 rosuvastatin 40 mg tablet 40 mg PO QAM RF: 0 calcium citrate-vitamin D3 250 mg-5 mcg (200 unit) Tablet 1 tab PO QDL RF: 0 Women's One Daily 18 mg iron-400 mcg-500 mg Ca Tablet 1 tab PO QDL RF: 0 furosemide 40 mg tablet 40 mg PO QAM RF: 0 potassium chloride 10 mEq tablet extended release 10 meq PO QAM RF: 0 famotidine 20 mg Tablet 20 mg PO QAM RF: 0 oxycodone 5 mg tablet 5 mg PO Q4H PRN (Reason: Pain) RF: 0 metoprolol tartrate 25 mg tablet 25 mg PO BID RF: 0 Referrals Referrals: Talisha Abdi MD [Primary Care Provider] - Discharge Problem: Atrial flutter Qualifiers: Atrial flutter type: unspecified Qualified Code(s): I48.92 - Unspecified atrial flutter
[2022-01-11] MEDS ORDERED: Heparin IV Adult Wt-Based Standard WITH Bolus Protocol IV STA (13:42)
[2022-01-11] MEDS ORDERED: dilTIAZem HCL 125 MG in DEXTROSE 5% 100 ML IV SCH (13:45)
[2022-01-11 13:52] LABS: Basophils # (auto) 0.03 K/uL (0-0.2); Basophils % (auto) 0.2 %; Eosinophils # (auto) 0.23 K/uL (0-0.5); Eosinophils % (auto) 1.8 %; Hematocrit (blood only) 38.9 % (37-47); Immature Granulocytes # (auto) 0.08 K/uL (0.00-0.02); Immature Granulocytes % (auto) 0.6 %; Lymphocytes # (auto) 1.39 K/uL (1.2-3.4); Lymphocytes % (auto) 10.7 %; Mean Corpuscular Hemoglobin 28.6 pg (25-34); Mean Corpuscular Hgb Conc 30.8 g/dL (32-36); Mean Corpuscular Volume 92.8 fL (80-100); Mean Platelet Volume 9.4 fL (7.4-10.4); Monocytes # (auto) 1.18 K/uL (0.11-0.59); Neutrophils # (auto) 10.13 K/uL (1.4-6.5); Neutrophils % (auto) 77.7 %; Platelet Count 691 K/uL (130-400); RDW Coefficient of Variation 17.7 % (11.5-14.5); RDW Standard Deviation 59.9 fL (36.4-46.3); Red Blood Count 4.19 M/uL (4.2-5.4); White Blood Count 13.04 K/uL (4.8-10.8)
--- NOTE | 2022-01-11 13:54 | XRay Report ---
XR chest 1V portable CLINICAL HISTORY: Atypical chest pain. COMPARISON STUDY: Chest CT December 06, 2021. Chest radiograph December 26, 2021. FINDINGS: Interval median sternotomy is noted. Pleural effusions and pulmonary edema have resolved si nce prior exam. There is no pneumothorax. No consolidation to suggest pneumonia. IMPRESSION: No acute cardiopulmonary findings. Interval median sternotomy. ACT 112: Negative or not required by law. Electronically signed by: Moreno Nazario M.D. 01/11/2022 1:53 PM
[2022-01-11] MEDS ORDERED: HEPARIN SOD (PORCINE) 1000 UNIT/ML IV ONE ×2 (13:57)
[2022-01-11] MEDS ORDERED: HEPARIN SODIUM/DEXTROSE 25,000 UNITS/500 ML BAG IV SCH (14:00)
[2022-01-11 14:14] LABS: Partial Thromboplastin Ratio 1.1; Partial Thromboplastin Time 30.4 Seconds (21.0-31.0)
[2022-01-11 14:26] LABS: Albumin Globulin Ratio 1.1 (0.9-2); Albumin Level 4.2 gm/dl (3.4-5.0); BUN Creatinine Ratio 21.2 (10-20); Bilirubin,Total 0.6 mg/dl (0.2-1.0); Calcium 9.7 mg/dl (8.5-10.1); Est GFR (African American) 106.7 ml/min; Est GFR (Non-African American) 92.1 ml/min; Globulin 3.9 gm/dl (2.5-4.0); Potassium 4.2 mmol/L (3.5-5.1); Total Protein 8.1 gm/dl (6.0-8.3)
--- NOTE | 2022-01-11 14:30 | Electrocardiogram Report ---
Test Reason : Blood Pressure : / mmHG Vent. Rate : 169 BPM Atrial Rate : 338 BPM P-R Int : 000 ms QRS Dur : 078 ms QT Int : 286 ms P-R-T Axes : 081 073 072 degrees QTc Int : 479 ms Atrial flutter with 2:1 A-V conduction Abnormal ECG When compared with ECG of 26-DEC-2021 04:38, Atrial flutter has replaced Sinus rhythm Vent. rate has increased BY [address] no longer depressed in Inferior leads ST no longer depressed in Lateral leads Nonspecific T wave abnormality now evident in Inferior leads T wave inversion now evident in Anterior leads Confirmed by Thiago Tripathi ([id number]) on 01/11/2022 2:29:36 PM Referred By: Confirmed By:Thiago Tripathi
[2022-01-11 14:48] LABS: Troponin I High Sensitivity 43.3 pg/ml (0-14)
--- NOTE | 2022-01-11 16:25 | Electrocardiogram Report ---
Test Reason : Blood Pressure : / mmHG Vent. Rate : 100 BPM Atrial Rate : 120 BPM P-R Int : 000 ms QRS Dur : 084 ms QT Int : 360 ms P-R-T Axes : 000 070 092 degrees QTc Int : 464 ms Atrial fibrillation Minimal voltage criteria for LVH, may be normal variant Nonspecific ST and T wave abnormality Abnormal ECG When compared with ECG of 11-JAN-2022 13:56, (unconfirmed) No significant change was found Confirmed by Thiago Tripathi ([id number]) on 01/11/2022 4:25:37 PM Referred By: Ha Diallo Confirmed By:Thiago Tripathi
[2022-01-11] MEDS ORDERED: AMIODARONE / D5W 150 MG/100 ML BAG IV STA (16:27)
[2022-01-11] MEDS ORDERED: AMIODARONE IV BOLUS & DRIP IV STA (16:27)
[2022-01-11] MEDS ORDERED: 0.2 MICRON FILTER SET 1 EA IV ONE (16:27)
[2022-01-11] MEDS ORDERED: AMIODARONE / D5W 360 MG/200 ML BAG IV ONE (16:37)
--- NOTE | 2022-01-11 16:49 | History & Physical Report ---
Date of Service January 11, 2022 Assessment & Plan (1) Atrial flutter with rapid ventricular response: Plan: Admit to telemetry Patient presenting from home with reports of palpitations, s/p recent CABG x1 and bioprosthetic aortic valve replacement on 12/28/2021 at [facility]. Was seen in the outpatient cardiology clinic this morning where EKG demonstrated tachycardia and patient was referred to the ED for further evaluation. Upon arrival to the ED, EKG showed atrial flutter with 2-1 conduction with rates in the 160s. Patient was given IV Cardizem bolus with improvement in HR and subsequent conversion to NSR Atrial arrhythmia likely due to recent aortic valve replacement and CABG Electrolytes and TSH acceptable. Mild leukocytosis noted, WBC 13 K which may be reactive, however obtain UA for completeness HS trop 43.3, likely due to demand ischemia from tachycardia. Continue to trend troponins. Started on IV heparin in the ED. Transition to Eliquis tomorrow - will need to check with CM regarding cost. [id number] score 4. Evaluated by cardiology in the ED who is recommending IV amiodarone with transition to p.o.. Change metoprolol to metoprolol succinate 25 mg daily. (2) CAD (coronary artery disease): Plan: S/p CABG x 1 12/28/21 Continue ASA, statin, beta-miguel (3) History of aortic valve replacement with bioprosthetic valve: Plan: On 12/28/2021 (4) DVT prophylaxis: Plan: On IV heparin History of Present Illness Chief Complaint: Palpitations Primary Care Provider: Talisha Abdi MD 66-year-old female PMH CAD, dyslipidemia, seasonal allergies, HTN, and other problems listed below who presents the ED for evaluation of palpitations. Patient recently admitted to [facility] for CABG x1 and bioprosthetic aortic valve replacement on 12/28/2021. Patient reports she has been doing well since returning home. Patient reports she is slowly improving every day. This morning, while she was brushing her teeth patient reports a sudden onset of palpitations. She called her cardiac surgeons office who advised her to be evaluated. She went to her outpatient cardiology office and had an EKG done that demonstrated tachycardia and patient was referred to the ED for further evaluation. Patient denies associated chest pain, shortness of breath, lightheadedness, dizziness, diaphoresis, syncopal events. Patient reports she has been monitoring her weight and has been stable. She denies lower extremity edema and orthopnea. Reports she has had a good appetite. Denies fevers and chills. No abdominal pain, nausea, vomiting, diarrhea. Denies urinary symptoms. Upon arrival to the ED, EKG showed atrial flutter with 2-1 block in the 160s. Patient was given 10 mg IV bolus with improvement in heart rate and subsequent conversion to NSR. Patient was also started on a heparin drip. BP has been stable. WBC 13 K, HS troponin 43.3. Allergies Allergy/AdvReac Type Severity Reaction Status Date / Time eptifibatide Allergy Intermediate ITCHY RASH Verified 01/11/22 14:59 [From Integrilin] codeine AdvReac Intermediate NAUSEA/VOMI Verified 01/11/22 14:59 TING Home Medications Medication Instructions Recorded Confirmed Type aspirin 81 mg tablet,delayed 81 mg PO QAM 06/04/19 01/11/22 History release fexofenadine 180 mg tablet 180 mg PO DAILY PRN 11/30/21 01/11/22 History calcium citrate 250 mg 1 tab PO QDL 12/06/21 01/11/22 History calcium-vitamin D3 5 mcg (200 unit) tablet multivit-iron 18 mg-folic acid 400 1 tab PO QDL 12/06/21 01/11/22 History mcg-calcium 500 mg-minerals tablet (Women's One Daily) rosuvastatin 40 mg tablet 40 mg PO QAM 12/06/21 01/11/22 History sodium chloride 0.65 % nasal spray 1 spray INTRANASAL DIRECTED PRN 12/06/21 01/11/22 History aerosol (Saline Nasal) famotidine 20 mg tablet 20 mg PO QAM 01/11/22 01/11/22 History furosemide 40 mg tablet 40 mg PO QAM 01/11/22 01/11/22 History metoprolol tartrate 25 mg tablet 25 mg PO BID 01/11/22 01/11/22 History oxycodone 5 mg tablet 5 mg PO Q4H PRN 01/11/22 01/11/22 History potassium chloride 10 mEq 10 meq PO QAM 01/11/22 01/11/22 History tablet,extended release Past Med/Surg History Medical History Aortic regurgitation Severe per 10/25/21 echo CAD (coronary artery disease) Single-vessel atherosclerotic coronary disease, status post drug-eluting stent to the mid right coronary artery for high-grade mid vessel stenosis, December of 2012. Repeat coronary intervention, May 2013, for in-stent restenosis. Follow up cardiac catheterization for symptoms since August 2013, demonstrating 50% distal narrowing of the right coronary artery but no high- grade obstruction. Cardiac cath in November 2021 with in stent restenosis of the RCA, occluded Hyperlipidemia Hypertension Surgical History History of aortic valve replacement with bioprosthetic valve History of cardiac cath MICHELA to mid RCA (12/2012), "repeat coronary intervention" (05/2013) for in- stent restenosis, (2013) > "50% distal narrowing of the RCA but no high-grade obstruction" per cardiology records S/P CABG x 1 Family History Father Cancer Social History Smoking Status: Former smoker Second Hand Exposure: No; Hx Alcohol Use: Yes Alcohol type: wine Hx Substance Use: No Preferred Language: Guamanian Communication Ability: Effective Asphalt Raker Required: No Beliefs That Will Affect Care: [facility] marital status: Current Living Situation: Spouse Feels Safe at Home: Yes Assistive Devices: None Review of Systems Review of Systems: ROS per HPI, all other systems reviewed and negative Physical Exam Constitutional: WD/WN, vitals as above Eyes: PERRL, conjunctivae normal, anicteric sclerae ENMT: external ear and nose normal, oropharynx normal Respiratory: normal respiratory effort, lungs clear to auscultation Cardiovascular: Rate/Rhythm: regular rate and regular rhythm Vessels: normal peripheral pulses Extremities: no edema Chest (Breasts): Additional Comments: Midline sternotomy incision healing well, no surrounding erythema or drainage noted Gastrointestinal (Abdomen): normal bowel sounds, soft, nontender, no hepatosplenomegaly Musculoskeletal: no cyanosis or clubbing, extremities motor strength 5/5 Skin: no rashes, warm and dry Neurologic: PERRL, EOMI, accommodation nl, no face palsy, no dysarthria Psychiatric: A+Ox3, euthymic affect Results & Data Results & Data ([facility]) Vital Signs (Past 12 Hours) Vital Signs Temp Pulse Pulse Resp BP BP Pulse Ox 01/11/22 16:17 93 H 18 154/90 H 94 01/11/22 13:55 91 H 19 123/75 91 01/11/22 13:50 157 H 20 139/88 94 01/11/22 13:45 163 H 14 164/109 H 100 01/11/22 13:40 162 H 22 149/104 H 99 01/11/22 13:39 162 H 20 133/102 H 99 01/11/22 13:35 163 H 6 L 149/115 H 01/11/22 13:31 166 H 17 158/118 H 01/11/22 13:30 169 H 16 01/11/22 13:18 37.1 C 175 H 16 122/82 96 Laboratory Results Short CBC 01/11/22 Range/Units 13:28 WBC 13.04 H (4.8-10.8) K/uL Hgb 12.0 (12.0-16.0) g/dL Hct 38.9 (37-47) % Plt Count 691 H (130-400) K/uL BMP 01/11/22 13:28 Sodium 139 Potassium 4.2 Chloride 101 Carbon Dioxide 28 BUN 14 Creatinine 0.66 Glucose 125 H Calcium 9.7 Liver Function 01/11/22 Range/Units 13:28 Total Bilirubin 0.6 (0.2-1.0) mg/dl AST 24 (13-39) U/L ALT 21 (7-52) U/L Alkaline Phosphatase 117 H (34-104) U/L Albumin 4.2 (3.4-5.0) gm/dl Diagnostic Findings Chest X-Ray 01/11/22 13:32 XR chest 1V portable CLINICAL HISTORY: Atypical chest pain. COMPARISON STUDY: Chest CT December 06, 2021. Chest radiograph December 26, 2021. FINDINGS: Interval median sternotomy is noted. Pleural effusions and pulmonary edema have resolved since prior exam. There is no pneumothorax. No consolidation to suggest pneumonia. IMPRESSION: No acute cardiopulmonary findings. Interval median sternotomy. ACT 112: Negative or not required by law. Electronically signed by: Moreno Nazario M.D. 01/11/2022 1:53 PM Code Status & VTE Plan Code Status Patient is a full code as per my discussion with her. Patient states that her , Simon, would be her decision-maker in the event she were to be unable to. VTE Prophylaxis Plan VTE Prophylaxis will be ordered: No Supervising Physician Co-Signing Physician Notes Patient is a 66-year-old female with history of dizziness, hypertension, who was recently admitted at [facility] for CABG, aortic valve replacement 2 weeks ago presents with history of palpitations. Palpitations started while patient was brushing her teeth. She denies any associated nausea, vomiting, chest pain, shortness of breath, dizziness. She states that palpitations lasted until she was treated with medications in ED. She was initially started on Cardizem, later transition to amiodarone drip. Currently she is asymptomatic. She was found to be in atrial flutter RVR while in ED. Blood work showed leukocytosis 13 K, hemoglobin 12, platelets 691K, sodium 139, potassium 4.2, glucose 125, troponin 43.3, TSH, magnesium pending. Chest x-ray showed no acute cardiopulmonary findings. On exam patient is thin, frail, no apparent distress, normocephalic atraumatic, EOMI, normal breath sounds, clear to auscultation, irregularly irregular, tachycardia,+ murmur, + vertical surgical scar, no pedal edema, abdomen soft, nontender, normal bowel sounds, alert, awake, oriented, grossly no focal deficits. Patient is admitted for management of atrial flutter RVR. Continue amiodarone drip. Also started on heparin drip. Continue metoprolol. Check TSH, magnesium. Appreciate cardiology input. IV Lopressor as needed. Repeat EKG in the morning. Trend troponins. Check resting echo. Continue home medications for coronary artery disease. Monitor and replace electrolytes as needed. Monitor for any bleeding issues while on IV heparin. I personally reviewed the record. Patient is interviewed and examined at bedside. Patient's care is coordinated with Laurel Munoz BULK SEALER OPERATOR. Please refer to the document ation above for details of patient's presentation and for discussion of other issues.
--- NOTE | 2022-01-11 17:03 | Cardiology Consultation ---
Date of Consultation January 11, 2022 Assessment & Plan (1) Atrial flutter with rapid ventricular response: (2) CAD (coronary artery disease): (3) History of aortic valve replacement with bioprosthetic valve: The presence of atrial flutter is not surprising postoperatively for an aortic valve replacement. She did not have a significant atrial arrhythmias during her postprocedure period. The pathophysiology and treatment options for atrial flutter were discussed with the patient and her at great lengths. Given the fact this occurred postoperatively I believe the most prudent course of action at this point would be to load her with IV amiodarone and then maintain her on oral amiodarone for at least the next few months. She also be started on Eliquis for stroke prevention which will need to be maintained for 1 month. Will monitor on telemetry overnight and hopefully be able to discharge to home tomorrow History of Present Illness Reason for Consultation: Atrial flutter Requesting Physician: ER Attending Physician: [facility] History of Present Illness It was my pleasure to see Mrs. Asif in cardiac consultation today January 11, 2022. She is a very pleasant 66-year-old woman who is 2 weeks postop bioprosthetic aortic valve replacement and CABG x1. She presented to [facility] emergency department this morning with complaints of palpitations. The patient and her state that she has been doing very we ll postoperatively and already making great strides with physical therapy. However, this morning she felt her heart start to race. She denied any associated symptoms but felt that her heart was going faster than it should. She had a normally scheduled appointment with Dr. Diallo this afternoon and was found to be in atrial flutter and she was directed to the emergency department. In the emergency department she converted to normal sinus rhythm after receiving a dose of IV Cardizem. Currently she is feeling well without any other complaints. Past medical history: 1. Single-vessel atherosclerotic coronary disease, status post drug-eluting stent to the mid right coronary artery for high-grade midvessel stenosis, December of 2012. 2. Repeat coronary intervention, May 2013, for in-stent restenosis. 3. Follow up cardiac catheterization for symptoms since August 2013,demonstrating 50% distal narrowing of the right coronary artery but nohigh-grade obstruction. Saphenous vein graft to the PDA December 2021 4. Hyperlipidemia. 5. Aortic insufficiency - severe per HARVINDER 6. Cardiac cath in November 2021 with in stent restenosis of the RCA, occluded. 7. Flash pulm edema requiring admission and intubation in November 2021 due to severe AI AVR 23mm Inspiris valve. December 28, 2021 Allergies Allergy/AdvReac Type Severity Reaction Status Date / Time eptifibatide Allergy Intermediate ITCHY RASH Verified 01/11/22 14:59 [From Integrilin] codeine AdvReac Intermediate NAUSEA/VOMI Verified 01/11/22 14:59 TING Home Medications Medication Instructions Recorded Confirmed Type aspirin 81 mg tablet,delayed 81 mg PO QAM 06/04/19 01/11/22 History release fexofenadine 180 mg tablet 180 mg PO DAILY PRN 11/30/21 01/11/22 History calcium citrate 250 mg 1 tab PO QDL 12/06/21 01/11/22 History calcium-vitamin D3 5 mcg (200 unit) tablet multivit-iron 18 mg-folic acid 400 1 tab PO QDL 12/06/21 01/11/22 History mcg-calcium 500 mg-minerals tablet (Women's One Daily) rosuvastatin 40 mg tablet 40 mg PO QAM 12/06/21 01/11/22 History sodium chloride 0.65 % nasal spray 1 spray INTRANASAL DIRECTED PRN 12/06/21 01/11/22 History aerosol (Saline Nasal) famotidine 20 mg tablet 20 mg PO QAM 01/11/22 01/11/22 History furosemide 40 mg tablet 40 mg PO QAM 01/11/22 01/11/22 History metoprolol tartrate 25 mg tablet 25 mg PO BID 01/11/22 01/11/22 History oxycodone 5 mg tablet 5 mg PO Q4H PRN 01/11/22 01/11/22 History potassium chloride 10 mEq 10 meq PO QAM 01/11/22 01/11/22 History tablet,extended release Patient History Medical History Aortic regurgitation Severe per 10/25/21 echo CAD (coronary artery disease) Single-vessel atherosclerotic coronary disease, status post drug-eluting stent to the mid right coronary artery for high-grade mid vessel stenosis, December of 2012. Repeat coronary intervention, May 2013, for in-stent restenosis. Follow up cardiac catheterization for symptoms since August 2013, demonstrating 50% distal narrowing of the right coronary artery but no high- grade obstruction. Cardiac cath in November 2021 with in stent restenosis of the RCA, occluded Hyperlipidemia Hypertension Surgical History History of aortic valve replacement with bioprosthetic valve History of cardiac cath MICHELA to mid RCA (12/2012), "repeat coronary intervention" (05/2013) for in- stent restenosis, (2013) > "50% distal narrowing of the RCA but no high-grade obstruction" per cardiology records S/P CABG x 1 Social History Smoking Status: Former smoker Second Hand Exposure: No; Hx Alcohol Use: Yes Alcohol type: wine Hx Substance Use: No Preferred Language: Telugu Communication Ability: Effective Tie Cutter Required: No Beliefs That Will Affect Care: Anabaptism marital status: Current Living Situation: Spouse Feels Safe at Home: Yes Assistive Devices: None Review of Systems Review of Systems: All systems reviewed & are unremarkable except as noted in HPI & below Physical Exam Physical Exam: General: Awake, alert and oriented x 3. No acute distress. HEENT: Normocephalic, atraumatic. Pupils equal, round and reactive to light and accommodation. Extraocular muscles are intact. Anicteric sclera. Moist mucous membranes. Neck: No JVD. No bruit. Cardiovascular: Regular. Positive S-4. Normal S-1 and S-2. No S-3. 3/6 mid to late systolic ejection murmur, greatest at the right sternal border, second intercostal space with radiation to the bilateral carotids. No rubs. Pulmonary: Clear to auscultation bilaterally. No rales, rhonchi, or wheezing. Abdomen: Bowel sounds x 4, soft. No rebound, guarding or tenderness. No organomegaly. Extremities: No clubbing, cyanosis or edema. +2 pedal pulses bilaterally. Skin: Warm and dry. Results & Data ([facility]) Vital Signs (Past 12 Hours) Vital Signs Temp Pulse Pulse Resp BP BP Pulse Ox 01/11/22 16:17 93 H 18 154/90 H 94 01/11/22 13:55 91 H 19 123/75 91 01/11/22 13:50 157 H 20 139/88 94 01/11/22 13:45 163 H 14 164/109 H 100 01/11/22 13:40 162 H 22 149/104 H 99 01/11/22 13:39 162 H 20 133/102 H 99 01/11/22 13:35 163 H 6 L 149/115 H 01/11/22 13:31 166 H 17 158/118 H 01/11/22 13:30 169 H 16 01/11/22 13:18 37.1 C 175 H 16 122/82 96
[2022-01-11 18:04] LABS: Appearance Urine Clear (Clear); Bilirubin Urine Negative (Negative); Blood Urine Negative (Negative); Color Urine Yellow; Glucose Urine UA Negative (Negative); Ketones Urine Negative (Negative); Leukocyte Esterase Urine Negative (Negative); Nitrite Urine Negative (Negative); Protein Urine Negative (Negative); Specific Gravity Urine 1.006 (1.000-1.030); Urobilinogen Urine Negative (Negative); pH Urine 7.5 (4.5-7.5)
[2022-01-11] MEDS ORDERED: METOPROLOL TARTRATE 1 MG/ML VIAL IV PRN (19:34)
[2022-01-11] MEDS ORDERED: ACETAMINOPHEN 325 MG TAB PO PRN (19:34)
[2022-01-11 20:45] LABS: Partial Thromboplastin Ratio 1.5; Partial Thromboplastin Time 40.9 Seconds (21.0-31.0)
[2022-01-11] MEDS ORDERED: AMIODARONE / D5W 360 MG/200 ML BAG IV SCH (22:30)
[2022-01-12 04:08] LABS: Hematocrit (blood only) 32.7 % (37-47); Hemoglobin 10.4 g/dL (12.0-16.0); Mean Corpuscular Hemoglobin 29.7 pg (25-34); Mean Corpuscular Hgb Conc 31.8 g/dL (32-36); Mean Corpuscular Volume 93.4 fL (80-100); Mean Platelet Volume 9.1 fL (7.4-10.4); Platelet Count 535 K/uL (130-400); RDW Coefficient of Variation 17.4 % (11.5-14.5); RDW Standard Deviation 59.2 fL (36.4-46.3); White Blood Count 9.25 K/uL (4.8-10.8)
[2022-01-12 04:41] LABS: Partial Thromboplastin Ratio 1.8
[2022-01-12 04:42] LABS: Troponin I High Sensitivity 67.1 pg/ml (0-14)
[2022-01-12 04:52] LABS: Partial Thromboplastin Time 50.7 Seconds (21.0-31.0)
[2022-01-12 05:22] LABS: BUN Creatinine Ratio 21.5 (10-20); Creatinine Clr Calc Pharmacy 57.9 ml/min; Est GFR (African American) 107.2 ml/min; Est GFR (Non-African American) 92.5 ml/min; Potassium 3.9 mmol/L (3.5-5.1)
[2022-01-12 05:23] LABS: Calcium 9.2 mg/dl (8.5-10.1)
[2022-01-12] MEDS: ROSUVASTATIN CALCIUM 20 MG TAB PO SCH (07:37)
[2022-01-12] MEDS: POTASSIUM CHLORIDE 10 MEQ TABCR PO SCH (07:38)
[2022-01-12] MEDS: FAMOTIDINE 20 MG TAB PO SCH (07:39)
[2022-01-12] MEDS: FUROSEMIDE 40 MG TAB PO SCH (07:39)
[2022-01-12] MEDS: METOPROLOL SUCC 25MG EXT REL TAB PO SCH (07:40)
[2022-01-12] MEDS: ASPIRIN 81 MG ECTAB PO SCH (07:40)
--- NOTE | 2022-01-12 09:09 | Cardiology Progress Note ---
Date of Service January 12, 2022 Assessment & Plan (1) Atrial flutter with rapid ventricular response: (2) CAD (coronary artery disease): (3) History of aortic valve replacement with bioprosthetic valve: Plan: The patient converted to normal sinus rhythm yesterday and I will switch her over to oral amiodarone today. I also switched her from heparin to Eliquis. I would continue her on telemetry through today. Admission and Anticipated Discharge Date Admission Date: January 11, 2022 Subjective The patient had an uneventful night. She converted to normal sinus rhythm last evening. Review of Systems Review of Systems: Review of Systems: See HPI for pertinent positives. All other 10 point review of systems are negative. Physical Exam Physical Exam: General: no acute distress and stated age Head: normocephalic, no masses, lesions, tenderness or abnormalities Eyes: conjunctiva are pink and non-injected, sclera clear Neck: supple, no adenopathy, no bruits, normal jugular venous pulse, no hepatojugular reflux Chest: OHS scar healing appropriately Lungs: clear to auscultation and percussion Cardiac Exam: - regular rate & rhythm, no murmurs gallops or rubs - normal S1, normal S2 Pulses: 2(+) throughout Abdomen: abdomen soft, non-tender, no abnormal masses and no hepatosplenomegaly Musculoskeletal: no gait disturbance, no joint inflammation, no deforming arthritis Extremities: no edema and no cyanosis Neuro: grossly normal exam Results & Data ([facility]) Vital Signs (Past 12 Hours) Vital Signs Temp Pulse Pulse Resp BP Pulse Ox 01/12/22 09:00 69 01/12/22 07:36 36.6 C 73 18 127/73 99 01/12/22 03:00 36.8 C 71 18 118/71 98 01/11/22 23:00 36.8 C 72 71 18 118/79 98 Laboratory Results Laboratory Results - last 24 hr 01/11/22 01/11/22 01/11/22 13:28 13:28 13:28 WBC 13.04 H RBC 4.19 L Hgb 12.0 Hct 38.9 MCV 92.8 MCH 28.6 MCHC 30.8 L RDW Std Deviation 59.9 H RDW Coeff of Stephanie 17.7 H Plt Count 691 H MPV 9.4 Immature Gran % (Auto) 0.6 Neut % (Auto) 77.7 Lymph % (Auto) 10.7 [place] % (Auto) 9.0 Eos % (Auto) 1.8 Baso % (Auto) 0.2 Neut # (Auto) 10.13 H Lymph # (Auto) 1.39 [place] # (Auto) 1.18 H Eos # (Auto) 0.23 Baso # (Auto) 0.03 Immature Gran # (Auto) 0.08 H PT 11.0 INR 1.0 APTT 30.4 PTT Ratio 1.1 Sodium 139 Potassium 4.2 Chloride 101 Carbon Dioxide 28 Anion Gap 10 BUN 14 Creatinine 0.66 Est Cr Clr Drug Dosing 57.0 Est GFR ( Amer) 106.7 Est GFR (Non-Af Amer) 92.1 BUN/Creatinine Ratio 21.2 H Glucose 125 H Calcium 9.7 Magnesium Total Bilirubin 0.6 AST 24 ALT 21 Alkaline Phosphatase 117 H Troponin I High Sens 43.3 H D Total Protein 8.1 Albumin 4.2 Globulin 3.9 Albumin/Globulin Ratio 1.1 TSH Urine Color Urine Appearance Urine pH Ur Specific [place] Urine Protein Urine Glucose (UA) Urine Ketones Urine Blood Urine Nitrite Urine Bilirubin Urine Urobilinogen Ur Leukocyte Esterase SARS-CoV-2, RNA, NAAT 01/11/22 01/11/22 01/11/22 13:28 13:28 14:05 WBC RBC Hgb Hct MCV MCH MCHC RDW Std Deviation RDW Coeff of Stephanie Plt Count MPV Immature Gran % (Auto) Neut % (Auto) Lymph % (Auto) [place] % (Auto) Eos % (Auto) Baso % (Auto) Neut # (Auto) Lymph # (Auto) [place] # (Auto) Eos # (Auto) Baso # (Auto) Immature Gran # (Auto) PT INR APTT PTT Ratio Sodium Potassium Chloride Carbon Dioxide Anion Gap BUN Creatinine Est Cr Clr Drug Dosing Est GFR ( Amer) Est GFR (Non-Af Amer) BUN/Creatinine Ratio Glucose Calcium Magnesium 2.1 Total Bilirubin AST ALT Alkaline Phosphatase Troponin I High Sens Total Protein Albumin Globulin Albumin/Globulin Ratio TSH 1.318 Urine Color Urine Appearance Urine pH Ur Specific [place] Urine Protein Urine Glucose (UA) Urine Ketones Urine Blood Urine Nitrite Urine Bilirubin Urine Urobilinogen Ur Leukocyte Esterase SARS-CoV-2, RNA, NAAT NEGATIVE 01/11/22 01/11/22 01/11/22 15:03 20:27 20:27 WBC RBC Hgb Hct MCV MCH MCHC RDW Std Deviation RDW Coeff of Stephanie Plt Count MPV Immature Gran % (Auto) Neut % (Auto) Lymph % (Auto) [place] % (Auto) Eos % (Auto) Baso % (Auto) Neut # (Auto) Lymph # (Auto) [place] # (Auto) Eos # (Auto) Baso # (Auto) Immature Gran # (Auto) PT INR APTT 40.9 H PTT Ratio 1.5 Sodium Potassium Chloride Carbon Dioxide Anion Gap BUN Creatinine Est Cr Clr Drug Dosing Est GFR ( Amer) Est GFR (Non-Af Amer) BUN/Creatinine Ratio Glucose Calcium Magnesium Total Bilirubin AST ALT Alkaline Phosphatase Troponin I High Sens 80.9 H* D Total Protein Albumin Globulin Albumin/Globulin Ratio TSH Urine Color Yellow Urine Appearance Clear Urine pH 7.5 Ur Specific [place] 1.006 Urine Protein Negative Urine Glucose (UA) Negative Urine Ketones Negative Urine Blood Negative Urine Nitrite Negative Urine Bilirubin Negative Urine Urobilinogen Negative Ur Leukocyte Esterase Negative SARS-CoV-2, RNA, NAAT 01/12/22 01/12/22 01/12/22 03:38 03:38 03:38 WBC 9.25 RBC 3.50 L Hgb 10.4 L Hct 32.7 L MCV 93.4 MCH 29.7 MCHC 31.8 L RDW Std Deviation 59.2 H RDW Coeff of Stephanie 17.4 H Plt Count 535 H MPV 9.1 Immature Gran % (Auto) Neut % (Auto) Lymph % (Auto) [place] % (Auto) Eos % (Auto) Baso % (Auto) Neut # (Auto) Lymph # (Auto) [place] # (Auto) Eos # (Auto) Baso # (Auto) Immature Gran # (Auto) PT INR APTT 50.7 H* PTT Ratio 1.8 Sodium 138 Potassium 3.9 Chloride 102 Carbon Dioxide 28 Anion Gap 8 BUN 14 Creatinine 0.65 Est Cr Clr Drug Dosing 57.9 Est GFR ( Amer) 107.2 Est GFR (Non-Af Amer) 92.5 BUN/Creatinine Ratio 21.5 H Glucose 109 H Calcium 9.2 Magnesium Total Bilirubin AST ALT Alkaline Phosphatase Troponin I High Sens 67.1 H* D Total Protein Albumin Globulin Albumin/Globulin Ratio TSH Urine Color Urine Appearance Urine pH Ur Specific [place] Urine Protein Urine Glucose (UA) Urine Ketones Urine Blood Urine Nitrite Urine Bilirubin Urine Urobilinogen Ur Leukocyte Esterase SARS-CoV-2, RNA, NAAT Medications Administered Current Inpatient Medications Acetaminophen (Acetaminophen 325 Mg Tab) 650 mg PO Q4H PRN PRN Reason: Pain or Fever Stop: 02/10/22 19:33 Amiodarone HCl (Amiodarone 200 Mg Tab) 200 mg PO TIDM [facility] Stop: 02/11/22 11:59 Apixaban (Apixaban 5 Mg Tablet) 5 mg PO BID [facility] Stop: 02/11/22 09:14 Aspirin (Aspirin 81 Mg Ectab) 81 mg PO [facility] Stop: 02/11/22 08:59 Last Admin: 01/12/22 07:40 Dose: 81 mg Documented by: Famotidine (Famotidine 20 Mg Tab) 20 mg PO [facility] Stop: 02/11/22 08:59 Last Admin: 01/12/22 07:39 Dose: 20 mg Documented by: Furosemide (Furosemide 40 Mg Tab) 40 mg PO [facility] Stop: 02/11/22 08:59 Last Admin: 01/12/22 07:39 Dose: 40 mg Documented by: Metoprolol Succinate (Metoprolol Succ 25mg Ext Rel Tab) 25 mg PO [facility] Stop: 02/11/22 08:59 Last Admin: 01/12/22 07:40 Dose: 25 mg Documented by: Metoprolol Tartrate (Metoprolol Tartrate 1 Mg/Ml Vial) 5 mg IV Q6 PRN PRN Reason: Tachycardia HR>120 Stop: 02/10/22 19:33 Potassium Chloride (Potassium Chloride 10 Meq Tabcr) 10 meq PO [facility] Stop: 02/11/22 08:59 Last Admin: 01/12/22 07:38 Dose: 10 meq Documented by: Rosuvastatin Calcium (Rosuvastatin Calcium 20 Mg Tab) 40 mg PO [facility] Stop: 02/11/22 08:59 Last Admin: 01/12/22 07:37 Dose: 40 mg Documented by:
[2022-01-12] MEDS ORDERED: APIXABAN 5 MG TABLET PO SCH (09:15)
[2022-01-12] MEDS: AMIODARONE 200 MG TAB PO SCH ×2 (10:59→17:24)
--- NOTE | 2022-01-12 11:15 | Electrocardiogram Report ---
Test Reason : Blood Pressure : / mmHG Vent. Rate : 093 BPM Atrial Rate : 093 BPM P-R Int : 148 ms QRS Dur : 080 ms QT Int : 352 ms P-R-T Axes : 064 066 112 degrees QTc Int : 437 ms Normal sinus rhythm Possible Left atrial enlargement Left ventricular hypertrophy with repolarization abnormality Abnormal ECG When compared with ECG of 11-JAN-2022 13:57, (unconfirmed) Sinus rhythm has replaced Atrial fibrillation Inverted T waves have replaced nonspecific T wave abnormality in Anterior leads Confirmed by Thiago Tripathi ([id number]) on 01/12/2022 11:15:50 AM Referred By: Ha Diallo Confirmed By:Thiago Tripathi
--- NOTE | 2022-01-12 12:33 | Electrocardiogram Report ---
Test Reason : Blood Pressure : / mmHG Vent. Rate : 074 BPM Atrial Rate : 074 BPM P-R Int : 158 ms QRS Dur : 082 ms QT Int : 400 ms P-R-T Axes : 028 066 121 degrees QTc Int : 444 ms Normal sinus rhythm Left ventricular hypertrophy with repolarization abnormality Abnormal ECG When compared with ECG of 11-JAN-2022 16:07, (unconfirmed) No significant change was found Confirmed by Thiago Tripathi ([id number]) on 01/12/2022 12:32:58 PM Referred By: Ha Diallo Confirmed By:Thiago Tripathi
--- NOTE | 2022-01-12 15:44 | Hospitalist Progress Note ---
Date of Service January 12, 2022 Assessment & Plan (1) Atrial flutter with rapid ventricular response: Plan: Dr. Loya's notes with addendum: Admit to telemetry Patient presenting from home with reports of palpitations, s/p recent CABG x1 and bioprosthetic aortic valve replacement on 12/28/2021 at [facility]. Was seen in the outpatient cardiology clinic this morning where EKG demonstrated tachycardia and patient was referred to the ED for further evaluation. Upon arrival to the ED, EKG showed atrial flutter with 2-1 conduction with rates in the 160s. Patient was given IV Cardizem bolus with improvement in HR and subsequent conversion to NSR Atrial arrhythmia likely due to recent aortic valve replacement and CABG Electrolytes and TSH acceptable. Mild leukocytosis noted, WBC 13 K which may be reactive, however obtain UA for completeness HS trop 43.3, likely due to demand ischemia from tachycardia. Continue to trend troponins. Started on IV heparin in the ED. Transition to Eliquis tomorrow - will need to check with CM regarding cost. [id number] score 4. Evaluated by cardiology in the ED who is recommending IV amiodarone with transition to p.o.. Change metoprolol to metoprolol succinate 25 mg daily. 01/12 Transition to amiodarone 200 mg 3 times daily Monitor closely Also transition to Eliquis Monitor closely (2) CAD (coronary artery disease): Plan: S/p CABG x 1 12/28/21 Continue ASA, statin, beta-miguel (3) History of aortic valve replacement with bioprosthetic valve: Plan: On 12/28/2021 (4) DVT prophylaxis: Plan: On Eliquis Admission and Anticipated Discharge Date Admission Date: January 11, 2022 Subjective Follow-up for atrial flutter, with rapid ventricular response, etc. Seen resting in bed, comfortable, in good spirits States she feels better compared to yesterday Denies palpitations, chest pain, dizziness, shortness of breath No other symptoms Review of Systems Review of Systems: all noted and negative except for above Physical Exam Physical Exam: General- oriented x 3, not in distress, speaks in sentences with no effort or accessory muscle use Eyes- anicteric Neck- no JVD Lungs- clear breath sounds bilaterally, no rales/wheezes Heart- normal rate, regular rhythm; no murmurs Abdomen- normal bowel sounds, nondistended, soft, nontender Extremities- no pretibial edema, no calf tenderness Neuro- alert, oriented x 3; no gross focal neurologic deficits Skin- warm & dry Results & Data Results & Data ([facility]) Vital Signs (Past 12 Hours) Vital Signs Temp Pulse Pulse Resp BP Pulse Ox 01/12/22 14:53 73 01/12/22 11:50 37.5 C 72 18 145/73 H 100 01/12/22 09:00 69 01/12/22 07:36 36.6 C 73 18 127/73 99 all noted and reviewed including below
[2022-01-12] MEDS: Heparin IV Adult Wt-Based Standard *NO* Bolus Protocol IV SCH ×3 (16:32→16:57)
[2022-01-12 16:47] LABS: Partial Thromboplastin Ratio 1.2; Partial Thromboplastin Time 31.9 Seconds (21.0-31.0)
[2022-01-12] MEDS ORDERED: HEPARIN SODIUM/DEXTROSE 25,000 UNITS/500 ML BAG IV SCH (17:00)
[2022-01-13 00:16] LABS: Partial Thromboplastin Ratio 1.8
[2022-01-13 00:26] LABS: Partial Thromboplastin Time 48.6 Seconds (21.0-31.0)
[2022-01-13 06:40] LABS: Partial Thromboplastin Ratio 1.9
[2022-01-13 06:41] LABS: Partial Thromboplastin Time 51.9 Seconds (21.0-31.0)
[2022-01-13] MEDS ORDERED: MIDAZOLAM HCL 5 MG/ML 1 ML VIAL ONE (09:24)
[2022-01-13] MEDS ORDERED: fentaNYL citrate 100 MCG/2 ML VIAL ONE (09:24)
[2022-01-13] MEDS ORDERED: BENZOCAINE/TETRACAIN/BUTAM 50 APPLN/5 GM CAN EXT ONE (09:24)
[2022-01-13] MEDS ORDERED: MIDAZOLAM HCL 1 MG/ML 2ML VIAL ONE (09:24)
--- NOTE | 2022-01-13 09:46 | Pre Anesthesia Assessment ---
Date of Service January 13, 2022 Pre Sedation Assessment Vital Signs Temp Pulse Pulse Resp BP BP Pulse Ox 01/13/22 07:26 70 01/13/22 05:04 70 01/13/22 04:20 36.8 C 72 16 147/81 H 99 01/12/22 23:54 37.3 C 65 16 135/75 99 01/12/22 19:00 37.6 C H 75 16 132/82 98 01/12/22 16:07 37.1 C 71 18 129/71 99 01/12/22 14:53 73 01/12/22 11:50 37.5 C 72 18 145/73 H 100 Pre-Sedation Airway Assessment Smoking Status: Former smoker Hx Sleep Apnea: No Notes The planned sedation has been discussed with the patient. Informed Consent was obtained. I have identified the patient, determined the appropriateness of sedation and have assessed the patient immediately prior to the procedure. All medicine(s) and interventions are by my order.
--- NOTE | 2022-01-13 11:06 | Post Anesthesia Assessment ---
Date of Service January 13, 2022 Post Sedation Assessment Vital Signs Temp Pulse Pulse Resp BP BP Pulse Ox 01/13/22 10:57 72 16 120/57 L 100 01/13/22 10:55 83 12 116/63 100 01/13/22 10:50 78 18 122/61 97 01/13/22 10:45 76 18 133/63 99 01/13/22 10:05 76 20 132/69 99 01/13/22 07:26 70 01/13/22 05:04 70 01/13/22 04:20 36.8 C 72 16 147/81 H 99 01/12/22 23:54 37.3 C 65 16 135/75 99 01/12/22 19:00 37.6 C H 75 16 132/82 98 01/12/22 16:07 37.1 C 71 18 129/71 99 01/12/22 14:53 73 01/12/22 11:50 37.5 C 72 18 145/73 H 100 Discharge Sedation Level of Care: Fast Track Phase II Post Sedation Plan On clinical assessment, the patient appears to have tolerated the sedation without complications. Patient is recovering as anticipated. Patient will continue to be monitored by nursing and may be discharged when sedation discharge criteria are met per below protocol. Upon Completions of procedure up to 15 minutes continue every 5 minute vital signs and the P.A.R. score; then discharge to a Phase I or Fast Track to Phase II per the following guidelines: * Discharge Patient to appropriate Phase II area if PAR is 8 or greater or return to pre- procedure baseline. The post - procedure orders will be as directed. * If PAR score is less than 8 or not return to pre-procedure baseline then patient will follow Phase I monitoring till PAR is reached for Phase II. The Phase I may be done in procedure room or may call to secure a Phase I area. * If naloxone or flumazenil are used for reversal, hold in Phase I for continued monitoring from when last reversal dose was given for a minimum of 60 minutes or longer pending the nurse and/or physician discretion of patient condition before discharge to Phase II. Please call the Sedation Physician to re-evaluate and complete post-note for discharge to Phase II area. Do NOT discharge from procedure sedation or Phase 1 until post- sedation evaluation note is complete by procedure /sedation MD Sedation Discharge Instructions to be given to the patient at discharge to home.
--- NOTE | 2022-01-13 11:07 | Operative Report ---
Post Operative Report Pre & Post Diagnosis Operation Date: 01/13/22 10:00 <No data on this case meets the specified criteria> I identified the patient and participated in the time-out.: Yes Procedure Operation Date: 01/13/22 10:00 Actual Procedures p Echo Transesophageal - Maciej Farris DO s Echo Color Flow - Maciej Farris DO Informed consent obtained. Patient prepped. HARVINDER performed which revealed a normally seated bioprosthetic aortic valve without paravalvular leak. Patient tolerated well. updated on findings. Adequate moderate sedation was achieved using a total of Versed 4 mg and fentanyl 75 mcg. Start time: 1045 Stop time: 1057 Plan: Return to telemetry, heparin DC'd and Eliquis to be restarted. DC home later today. Surgeon Maciej Farris DO Pen Tender Pallavi Estimated Blood Loss 0 Findings Consistent with Post-Op Diagnosis As above Specimens None Description of Procedure As above I attest to the content of the Intraoperative Record and any orders documented therein. Any exceptions are noted below.
--- NOTE | 2022-01-13 11:09 | Cardiology Progress Note ---
Date of Service January 13, 2022 Assessment & Plan (1) Atrial flutter with rapid ventricular response: (2) CAD (coronary artery disease): (3) History of aortic valve replacement with bioprosthetic valve: Plan: She is remained in normal sinus rhythm and will be discharged home on amiodarone 200 mg twice daily and Eliquis 5 mg twice daily HARVINDER showed a well-seated valve without perivalvular leak. Will discharge to home later today. Follow-up as scheduled as an outpatient. Admission and Anticipated Discharge Date Admission Date: January 11, 2022 Subjective Patient seen and examined, chart reviewed. I discussed the findings by phone with the patient and her last evening and the concern for possible paravalvular leak and the need for HARVINDER. No complaints overnight. Telemetry reviewed: Normal sinus rhythm without arrhythmias Review of Systems Review of Systems: All systems reviewed & are unremarkable except as noted in HPI & below Physical Exam Physical Exam: General: Awake, alert and oriented x 3. No acute distress. HEENT: Normocephalic, atraumatic. Pupils equal, round and reactive to light and accommodation. Extraocular muscles are intact. Anicteric sclera. Moist mucous membranes. Neck: No JVD. No bruit. Cardiovascular: Regular. Positive S-4. Normal S-1 and S-2. No S-3. 3/6 mid to late systolic ejection murmur, greatest at the right sternal border, second intercostal space with radiation to the bilateral carotids. No rubs. Pulmonary: Clear to auscultation bilaterally. No rales, rhonchi, or wheezing. Abdomen: Bowel sounds x 4, soft. No rebound, guarding or tenderness. No organomegaly. Extremities: No clubbing, cyanosis or edema. +2 pedal pulses bilaterally. Skin: Warm and dry. Results & Data ([facility]) Vital Signs (Past 12 Hours) Vital Signs Temp Pulse Pulse Resp BP BP Pulse Ox 01/13/22 10:57 72 16 120/57 L 100 01/13/22 10:55 83 12 116/63 100 01/13/22 10:50 78 18 122/61 97 01/13/22 10:45 76 18 133/63 99 01/13/22 10:05 76 20 132/69 99 01/13/22 07:26 70 01/13/22 05:04 70 01/13/22 04:20 36.8 C 72 16 147/81 H 99 01/12/22 23:54 37.3 C 65 16 135/75 99
[2022-01-13] MEDS: AMIODARONE 200 MG TAB PO SCH ×3 (13:40→15:29)
[2022-01-13] MEDS: FAMOTIDINE 20 MG TAB PO SCH (13:41)
[2022-01-13] MEDS: FUROSEMIDE 40 MG TAB PO SCH (13:41)
[2022-01-13] MEDS: ASPIRIN 81 MG ECTAB PO SCH (13:42)
[2022-01-13] MEDS: ROSUVASTATIN CALCIUM 20 MG TAB PO SCH (13:42)
[2022-01-13] MEDS: POTASSIUM CHLORIDE 10 MEQ TABCR PO SCH (13:43)
[2022-01-13] MEDS: METOPROLOL SUCC 25MG EXT REL TAB PO SCH (13:45)
[2022-01-13] MEDS ORDERED: APIXABAN 5 MG TABLET PO STA (14:45)
--- NOTE | 2022-01-14 07:35 | Electrocardiogram Report ---
Test Reason : Blood Pressure : / mmHG Vent. Rate : 072 BPM Atrial Rate : 072 BPM P-R Int : 152 ms QRS Dur : 082 ms QT Int : 430 ms P-R-T Axes : 062 081 115 degrees QTc Int : 470 ms Normal sinus rhythm Left ventricular hypertrophy with repolarization abnormality Abnormal ECG When compared with ECG of 12-JAN-2022 05:49, Nonspecific T wave abnormality no longer evident in Inferior leads Nonspecific T wave abnormality has replaced inverted T waves in Anterior leads Confirmed by Aravind East ([id number]) on 01/14/2022 7:35:06 AM Referred By: Ha Diallo Confirmed By:Aravind East
== END 2022-01-13 15:31 | disposition home health service (06) | DRG 309 ==
LOC: ED 13:10 → 2S 16:31 → SUATTDRO 16:31 → 2S 19:09
DX: J30.9 Allergic rhinitis, unspecified; Z79.82 Long term (current) use of aspirin; I48.92 Unspecified atrial flutter; I25.10 Atherosclerotic heart disease of native coronary artery without angina pectoris; I48.91 Unspecified atrial fibrillation; Z88.5 Allergy status to narcotic agent; Z95.4 Presence of other heart-valve replacement; Z88.8 Allergy status to other drugs, medicaments and biological substances; E78.5 Hyperlipidemia, unspecified; I10 Essential (primary) hypertension; I24.8 Other forms of acute ischemic heart disease; Z95.5 Presence of coronary angioplasty implant and graft; I35.0 Nonrheumatic aortic (valve) stenosis